=== PATIENT | male | born 1950 | race Caucasian/White ===

== ENCOUNTER 2022-08-14 14:42 | Outpatient (AMB) | payer OTHER, SELFPAY ==
--- NOTE | 2022-08-14 13:32 | MHC.OFFVIS ---
Intake Vital Signs 08/14/22 15:07 Height 5 ft 7 in Intake Visit Reasons: 2nd opinion/ S/P Circumcision Intake Note: NEW Patient presents today for 2nd opinion s/p Circumcision. Meds- Cialis & Tamsulosin Allergies to Antibiotic- None Blood Thinner- Eliquis & Aspirin PVR- 0ml Special Makeup Fx Artist Instructor Required: No Accompanied by: Significant Other Allergies No Known Allergies Allergy (Verified 09/04/22 14:46) Medication List - Last Reconciled 08/14/22 by Silke Sharif MD apixaban (Eliquis) 5 mg PO BID aspirin 81 mg PO DAILY atorvastatin 20 mg PO DAILY blood sugar diagnostic (FreeStyle Lite Strips) As directed cholecalciferol (vitamin D3) 25 mcg PO DAILY dapagliflozin propanediol (Farxiga) 10 mg PO DAILY insulin detemir U-100 (Levemir FlexPen) units subcut lancets (FreeStyle Lancets) As directed levothyroxine 50 mcg PO DAILY metoprolol succinate ER 25 mg PO DAILY omeprazole 40 mg PO DAILY pen needle, diabetic (Unifine Pentips) As directed ropinirole 4 mg PO BEDTIME sacubitril-valsartan 24-26 mg (Entresto) 1 tab PO BID sennosides-docusate sodium 8.6-50 mg (Senna-S) 0 tabs PO DAILY sitagliptin phos-metformin 100-1,000 mg ER (Janumet XR) 1 tab PO DAILY tadalafil 10 - 20 mg PO tamsulosin 0.4 mg PO DAILY trazodone 100 mg PO BEDTIME HPI HPI Comments History of Present Illness Details Bryan is a 72-year-old male who is here for second opinion. 08/14/22-- The patient is a Pakistani speaking male. Certified sales porter was present during the visit. I reviewed previous consult note from 05/31/22. The patient is S/P meatal dilation on 04/16/21 and is instructed to catheterize twice a day. The patient has seen a urologist in the past. He was prescribed with Cialis 25 mg for erectile dysfunction PRN. Has a significant history for diabetes. He underwent circumcision five years ago. States having itching on the penis. The patient complains inability to maintain erection post the procedure. The patient states that he does not need catheter everyday. He states inability to insert the catheter. States visiting the hospital on July 24 for chest pain and was diagnosed with UTI. He was admitted in the hospital for 7 days during which he was treated with IV antibiotics. States having episode of heart attack due to which he cannot take Cialis. The patient denies issue with prostate. Does not have significant family history of prostate cancer. We will hold on any medication for erectile dysfunction as he recently had an heart attack. Evaluation today-- Blood: negative, leukocytes: ?15 Nahomy/uL. On exam-- stenosis of the meatus on the penis. Scrotum and testicles: WNL. Plan: Follow-up after 3 weeks for urethral dilation and cystoscopy. Renal US and PSA blood work prior was ordered. 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 Depression Hematuria Hyperlipemia Hypothyroidism Male erectile disorder Morbid obesity Organic impotence Phimosis Primary insomnia Slow transit constipation Stage 3 chronic kidney disease Type 2 diabetes mellitus Urethral meatal stenosis Surgical History (Updated 08/14/22 @ 15:52 by LETICIA Catalan) History of circumcision Hx of colonoscopy Family History Father Medical history unknown Mother Medical history unknown Social History Alcohol intake: never Patient Tobacco Use Status: Never used Tobacco Review of Systems Const All systems reviewed & are unremarkable except as noted in HPI and below Reports no additional complaints Eyes Reports no additional complaints ENT Denies neck pain Card Denies leg edema Resp Denies cough GI Denies constipation Musc Reports no additional complaints and Denies neck pain Skin/Breast Denies rash and Denies unusual bruising Neuro Reports no additional complaints Psych Reports no additional complaints Endo Reports no additional complaints Du/Lymph Reports no additional complaints Aller/Immun Reports no additional complaints Physical Exam Const General: healthy appearing, no acute distress and well developed Orientation/consciousness: patient oriented x3 HEENT Head: Yes normocephalic and Yes atraumatic Eyes Conjunctivae: conjunctivae normal Neck Neck: Yes normal visual inspection Chest Chest palpation & inspection: normal inspection of the chest Resp Effort & Inspection: normal respiratory effort Cardio Rate: regular rate GI Inspection: Yes normal to inspection Palpation (GI): Soft to palpation Other: Prostate Exam: Scrotum: scrotum normal Skin General skin exam: no rashes or lesions noted Neuro General: patient oriented x3 Extrem General: No pedal edema Psych Appearance: grossly normal Affect: normal affect Office Procedures Post Void Residual Post Residual Void Post Void Residual (PVR): 0 [id number]-[id number] Void Residual by ultrasound Results AMB Urinalysis, Automated UA Leukoctes 15 Nahomy/uL Last Edit by Mercy Boswell Chuy on 08/14/22 15:51 UA Nitrite Negative Last Edit by Mercy Boswell [facility] on 08/14/22 15:51 UA Urobilinogen 0.2 mg/dL Last Edit by Mercy Boswell [facility] on 08/14/22 15:51 UA Protein 15 mg/dL Last Edit by Mercy Boswell [facility] on 08/14/22 15:51 UA pH 6.0 Last Edit by Mercy Boswell [facility] on 08/14/22 15:51 UA Blood 0 Alexander/uL Last Edit by Mercy Boswell [facility] on 08/14/22 15:51 UA Specific [place] 1.030 Last Edit by Mercy Boswell Chuy on 08/14/22 15:51 UA Ketone Positive Last Edit by Mercy Boswell [facility] on 08/14/22 15:51 UA Bilirubin 1 mg/dL Last Edit by Mercy Boswell [facility] on 08/14/22 15:51 1+ Mercy Boswell 08/14/22 15:51 UA Glucose 0 mg/dL Last Edit by Mercy Boswell [facility] on 08/14/22 15:51 Results Reviewed Results Reviewed: Laboratory Last Values Urine pH (Auto) 6.0 08/14/22 15:49 Specific [place] (Auto) 1.030 08/14/22 15:49 Urine Protein (Auto) 15 mg/dL 08/14/22 15:49 Glucose (UA)(Auto) 0 mg/dL 08/14/22 15:49 Urine Ketones (Auto) Positive 08/14/22 15:49 Urine Blood (Auto) 0 Alexander/uL 08/14/22 15:49 Urine Nitrite (Auto) Negative 08/14/22 15:49 Urine Bilirubin (Auto) 1 mg/dL 08/14/22 15:49 Urine Urobilinogen (Auto) 0.2 mg/dL 08/14/22 15:49 Leukocyte Esterase (Auto) 15 Nahomy/uL 08/14/22 15:49 Assessment & Plan Assessment & Plan (1) Balanitis: Code(s): N48.1 - Balanitis (2) Urethral meatal stenosis: Code(s): N35.919 - Unspecified urethral stricture, male, unspecified site (3) Screening PSA (prostate specific antigen): Code(s): Z12.5 - Encounter for screening for malignant neoplasm of prostate (4) Recent urinary tract infection: Code(s): Z87.440 - Personal history of urinary (tract) infections (5) BPH loc w urin obs/LUTS: Code(s): N40.1 - Benign prostatic hyperplasia with lower urinary tract symptoms (6) Screening PSA (prostate specific antigen): Code(s): Z12.5 - Encounter for screening for malignant neoplasm of prostate Plan Follow-up after 3 weeks for urethral dilation and cystoscopy. Renal US and PSA blood work prior was ordered. Orders: Orders PSA,Total (Free>4and<10) 08/14/22 N40.1 - Benign prostatic hyperplasia with lower urinary tract symptoms, Z12.5 - Encounter for screening for malignant neoplasm of prostate US retroperitoneal comp 08/14/22 N40.1 - Benign prostatic hyperplasia with lower urinary tract symptoms, N35.919 - Unspecified urethral stricture, male, unspecified site AMB Urinalysis Automated 08/14/22 Z13.9 - Encounter for screening, unspecified AMB Post Void Residual by ultrasound 08/14/22 N39.8 - Other specified disorders of urinary system Medications: New clotrimazole-betamethasone 1-0.05 % apply to affected genital area bid for 10 days then prn 1 appl topical BID 45 grams 2RF 10 days Patient Instructions: The patient had an opportunity to ask questions regarding treatment plan. All questions were answered. Laboratory studies and physical exam results were discussed and reviewed in detail. No major barriers to understanding were identified. The patient expressed understanding and agreement with the above treatment plan. The patient is aware they should contact our office by phone for worsening of their current condition or the appearance of new symptoms. Compliance is encouraged with any medications and followup testing that is ordered. It is a privilege to be allowed the opportunity to participate in the urologic care of your patient. If you have any questions or concerns regarding treatment for the above conditions please do not hesitate to contact me. The office telephone contact is [phone]. This note is constructed in part using voice recognition software. While every effort has been made to ensure accuracy scientist immunology errors may have been included. Yours sincerely, Silke Sharif MD Coding Level of Care Code Est Pt Level 4 (56248) Diagnoses Balanitis N48.1 Urethral meatal stenosis N35.919 Screening PSA (prostate specific antigen) Z12.5 Recent urinary tract infection Z87.440 BPH loc w urin obs/LUTS N40.1 CPT Codes Post Residual Void - PVR CPT Code: 94759-Pgjz Void Residual by ultrasound ([id number])
== END 2022-08-14 16:00 | disposition home or self-care (01) ==
PROVIDERS: PCP Physician Assistant Medical; Visit Provider Urology
DX: N48.1 Balanitis (principal); N35.919 Unspecified urethral stricture, male, unspecified site; Z12.5 Encounter for screening for malignant neoplasm of prostate; Z87.440 Personal history of urinary (tract) infections; N40.1 Benign prostatic hyperplasia with lower urinary tract symptoms; N39.8 Other specified disorders of urinary system
CPT/HCPCS: 99214

== ENCOUNTER → 2022-08-14 14:42 | Outpatient (BNVA) | payer OTHER, SELFPAY | PROVIDERS: PCP Physician Assistant Medical; Visit Provider Urology | DX: N48.1 Balanitis (principal); N40.1 Benign prostatic hyperplasia with lower urinary tract symptoms; N35.919 Unspecified urethral stricture, male, unspecified site; Z12.5 Encounter for screening for malignant neoplasm of prostate; Z87.440 Personal history of urinary (tract) infections | CPT/HCPCS: 51798; 99212 ==

== ENCOUNTER 2022-09-03 14:32 | Outpatient (REF) | payer OTHER, SELFPAY ==
--- NOTE | ~2022-09-03 | US_ITS ---
EXAMINATION: US RETROPERITONEAL COMPLETE (RENAL) CLINICAL INFORMATION: Benign prostatic hyperplasia with lower urinary tract symptoms. COMPARISON: None available. TECHNIQUE: Real-time imaging of the kidneys and bladder. FINDINGS: RIGHT KIDNEY: 10.5 x 5.4 x 5.1 cm (SAG x AP x TRV). The kidney is normal in size, contour, and echogenicity. Renal cortical thickness is normal. No calculi or focal parenchymal lesions. No hydronephrosis. LEFT KIDNEY: 11.7 x 5.7 x 6.2 cm (SAG x AP x TRV). The kidney is normal in size, contour, and echogenicity. Renal cortical thickness is normal. No calculi or focal parenchymal lesions. No hydronephrosis. BLADDER: Well distended and normal. Bilateral ureteral jets are demonstrated. Prevoid bladder volume is 186 mL. Postvoid bladder volume was not obtained. The prostate volume is 49.3 mL. US/US retroperitoneal comp IMPRESSION: 1. No nephrolithiasis or hydronephrosis. 2. Enlarged prostate.
== END 2022-09-03 14:33 | disposition home or self-care (01) ==
LOC: HO.US 14:32
PROVIDERS: PCP Physician Assistant Medical; Visit Provider Urology
DX: N40.1 Benign prostatic hyperplasia with lower urinary tract symptoms (principal); N35.919 Unspecified urethral stricture, male, unspecified site
CPT/HCPCS: 76770

== ENCOUNTER 2022-09-04 14:01 | Outpatient (AMB) | payer OTHER, SELFPAY ==
--- NOTE | 2022-09-04 07:09 | A.OFFVIS_ITS ---
Intake Intake Visit Reasons: 3w/ US/ Lab/ Cysto Allergies No Known Allergies Allergy (Verified 09/30/22 14:51) HPI HPI Comments History of Present Illness Details Bryan is a 72-year-old male who presents today to the office for an evaluation of cystoscopy. 09/04/2022-- He was last seen on 08/14/2022. He is a bangladeshi speaking male patient. Certified stone setter metal optical frames was present during visit. He was prescribed Lotrisone cream for the head of the penis for the symptoms of balanitis. He states that it is helping him. He denies any itching on the penis. He states that he is driving. US of the renal done on 09/03/2022, however, official readings are not available yet. Bladder scan PVR -- 33mL. Reviewed cystoscopy findings-- 09/04/2022 -- cystoscopy findings: Meatal urethral stricture, bulbous urethra normal; bladder: no suspicious bladder lesions noted. Plan: Continue to catheter once a day with 14-16 catheter. We will dilate the urethra again in 3 weeks. 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 Stage 3 chronic kidney disease Slow transit constipation Chronic back pain Colitis Urethral meatal stenosis Male erectile disorder Primary insomnia Depression AA (alcohol abuse) Cocaine abuse Type 2 diabetes mellitus Hypothyroidism Morbid obesity Hyperlipemia Phimosis Organic impotence Benign prostatic hyperplasia Surgical History (Updated 08/14/22 @ 15:52 by LETICIA Catalan) Hx of colonoscopy History of circumcision Family History Father Medical history unknown Mother Medical history unknown Social History Alcohol intake: never Patient Tobacco Use Status: Never used Tobacco Review of Systems Const All systems reviewed & are unremarkable except as noted in HPI and below Reports no additional complaints Eyes Reports no additional complaints ENT Denies neck pain Card Denies leg edema Resp Denies cough GI Denies constipation Musc Reports no additional complaints and Denies neck pain Skin/Breast Denies rash and Denies unusual bruising Neuro Reports no additional complaints Psych Reports no additional complaints Endo Reports no additional complaints Du/Lymph Reports no additional complaints Aller/Immun Reports no additional complaints Office Procedures Post Void Residual Post Residual Void Post Void Residual (PVR): 33 [id number] Void Residual by ultrasound Results AMB Urinalysis, Automated UA Leukoctes 70 Nahomy/uL Last Edit by Jessica Fox CMA on 09/04/22 15:12 + Jessica Fox 09/04/22 14:52 UA Leukoctes previously reported as 1 Jessica Fox 09/04/22 15:12 UA Nitrite Negative Last Edit by Jessica Fox CMA on 09/04/22 14:52 UA Urobilinogen 1 mg/dL Last Edit by Jessica Fox CMA on 09/04/22 14:52 + Jessica Fox 09/04/22 14:52 UA Protein 15 mg/dL Last Edit by Jessica Fox CMA on 09/04/22 15:12 + Jessica Fox 09/04/22 14:52 UA Protein previously reported as 1 Jessica Fox 09/04/22 15:12 UA pH 6.0 Last Edit by Jessica Fox CMA on 09/04/22 14:52 UA Blood 25 Alexander/uL Last Edit by Jessica Fox CMA on 09/04/22 15:12 + Jessica Fox 09/04/22 14:52 UA Blood previously reported as 1 Jessica Fox 09/04/22 15:12 UA Specific [place] 1.020 Last Edit by Jessica Fox CMA on 09/04/22 14: 52 UA Ketone Negative Last Edit by Jessica Fox CMA on 09/04/22 14:52 UA Bilirubin 0 mg/dL Last Edit by Jessica Fox CMA on 09/04/22 14:52 UA Glucose 0 mg/dL Last Edit by Jessica Fox CMA on 09/04/22 14:52 Results Reviewed Results Reviewed: Laboratory Last Values Urine pH (Auto) 6.0 09/04/22 14:49 Specific [place] (Auto) 1.020 09/04/22 14:49 Urine Protein (Auto) 15 mg/dL 09/04/22 14:49 Glucose (UA)(Auto) 0 mg/dL 09/04/22 14:49 Urine Ketones (Auto) Negative 09/04/22 14:49 Urine Blood (Auto) 25 Alexander/uL 09/04/22 14:49 Urine Nitrite (Auto) Negative 09/04/22 14:49 Urine Bilirubin (Auto) 0 mg/dL 09/04/22 14:49 Urine Urobilinogen (Auto) 1 mg/dL 09/04/22 14:49 Leukocyte Esterase (Auto) 70 Nahomy/uL 09/04/22 14:49 Assessment & Plan Assessment & Plan (1) Balanitis: Code(s): N48.1 - Balanitis (2) Urethral meatal stenosis: Code(s): N35.919 - Unspecified urethral stricture, male, unspecified site (3) Screening PSA (prostate specific antigen): Code(s): Z12.5 - Encounter for screening for malignant neoplasm of prostate (4) Recent urinary tract infection: Code(s): Z87.440 - Personal history of urinary (tract) infections (5) BPH loc w urin obs/LUTS: Code(s): N40.1 - Benign prostatic hyperplasia with lower urinary tract symptoms (6) Screening PSA (prostate specific antigen): Code(s): Z12.5 - Encounter for screening for malignant neoplasm of prostate Plan Continue to catheter once a day with 14-16 catheter. We will dilate the urethra again in 3 weeks. Orders: Orders AMB Post Void Residual by ultrasound 09/04/22 N40.1 - Benign prostatic hyperplasia with lower urinary tract symptoms AMB Urinalysis Automated 09/04/22 Z13.9 - Encounter for screening, unspecified Patient Instructions: The patient had an opportunity to ask questions regarding treatment plan. All questions were answered. Imaging, Laboratory studies and physical exam results were discussed and reviewed in detail. No major barriers to understanding were identified. The patient expressed understanding and agreement with the above treatment plan.? ? ? The patient is aware they should contact our office by phone for worsening of their current condition or the appearance of new symptoms. Compliance is encouraged with any medications and followup testing that is ordered.? ? ? It is a privilege to be allowed the opportunity to participate in the urologic care of your patient. If you have any questions or concerns regarding treatment for the above conditions please do not hesitate to contact me. The office telephone contact is [phone].? ? ? This note is constructed in part using voice recognition software. While every effort has been made to ensure accuracy furniture detailer errors may have been included.? ? ? Yours sincerely,? ? ? Silke Sharif MD? Coding Level of Care Code Procedure Only Diagnoses Balanitis N48.1 Urethral meatal stenosis N35.919 Screening PSA (prostate specific antigen) Z12.5 Recent urinary tract infection Z87.440 BPH loc w urin obs/LUTS N40.1 CPT Codes Cystoscopy - CPT: 95857-[id number] ([id number]) Post Residual Void - PVR CPT Code: 76114-Sosa Void Residual by ultrasound ([id number]) Cystoscopy Consent Discussed risk and benefit or proposed procedure with the patient. Information consent for procedure given to the patient. Discussed technical aspects, risks, benefits and alternatives in full. Addressed all of the patient's questions and concerns regarding the procedure. The patient demonstrated knowledge and understanding. They wish to proceed with this procedure. Preparation The patient was prepped in the usual manner. A member of the legislative council was present and in the room. Genitalia was prepped with betadine solution in a sterile manner. Lidocaine Jelly 2% was placed into the urethra and 16Fr flexible Olympus cystoscope was inserted into the meatus after adequate lubrication. Procedure Time out per protocol performed. Bladder Inspection Bladder Inspection: The bladder was inspected in its entirety with utilization retroflexion displaying: Tumor(s): None Trabeculation: mild Mucosal Erthema: N/A Orifices: normal shape and position Urethra: Meatal uretrhal stricture - required dilation Cystoscopy findings: prostatic urethra non obstructive, bulbous urethra WNL, no suspicious bladder lesions visualized [id number] Procedure code (CPT) selection complete
== END 2022-09-04 16:11 | disposition home or self-care (01) ==
PROVIDERS: PCP Physician Assistant Medical; Visit Provider Urology
DX: N48.1 Balanitis (principal); N40.1 Benign prostatic hyperplasia with lower urinary tract symptoms; N35.919 Unspecified urethral stricture, male, unspecified site; Z12.5 Encounter for screening for malignant neoplasm of prostate; Z87.440 Personal history of urinary (tract) infections
CPT/HCPCS: 52000

== ENCOUNTER → 2022-09-04 14:01 | Outpatient (BNVA) | payer OTHER, SELFPAY | PROVIDERS: PCP Physician Assistant Medical; Visit Provider Urology | DX: Z12.5 Encounter for screening for malignant neoplasm of prostate (principal); N48.1 Balanitis; N35.919 Unspecified urethral stricture, male, unspecified site; N40.1 Benign prostatic hyperplasia with lower urinary tract symptoms; Z87.440 Personal history of urinary (tract) infections | CPT/HCPCS: 51798; 52000; 81003 ==

== ENCOUNTER 2022-09-30 14:11 | Outpatient (AMB) | payer OTHER, SELFPAY ==
--- NOTE | 2022-09-30 12:17 | A.OFFVIS_ITS ---
Intake Intake Visit Reasons: 3w/urethral dilation/PSA Intake Note: Patient presents today for a URETHRAL DILATION/PSA: Meds: Tamsulosin & Tadalafil Allergies to Antibiotic: No Known Allergies Blood Thinner: Eliquis Technician Biological Health Required: Yes Technician Biological Health Language: Airfield Operations Specialist Name: Mercy Boswell, LETICIA/MAUREEN QUINONEZ Information Interpreted: non-clinical & clinical Accompanied by: Self / Same As Patient Allergies No Known Allergies Allergy (Verified 09/30/22 14:51) HPI HPI Comments History of Present Illness Details Bryan is a 72-year-old male who presents today to the office for a 3- week follow up. 09/30/2022? He was last seen by me on 09/04/2022 for benign prostatic hyperplasia. The urethral meatus was dilated, up to a 16 fr. Advised the patient to continue to catheter once a day with 14-16 catheter during that time, and discussed with the patient that we will dilate the urethra again in 3 weeks during that time. I reviewed the retroperitoneum US results from 09/03/2022 revealed no nephrolithiasis or hydronephrosis, and enlarged prostate. Review of charts: Last visit: 09/04/2022? He is a kyrgyz speaking male patient. Certified spooler operator was present during visit. He was prescribed Lotrisone cream for the head of the penis for the symptoms of balanitis. He states that it is helping him. He denies any itching on the penis. He states that he is driving. US of the renal done on 09/03/2022, however, official readings are not available yet. Bladder scan PVR -- 33mL. Reviewed cystoscopy findings-- 09/04/2022 -- cystoscopy findings are normal; urethra: normal; bladder: no suspicious bladder lesions noted. Plan: Continue to catheter once a day with 14-16 catheter. Will dilate the urethra again in 3 weeks. 09/30/2022: Evaluation today?UA? leukocytes: negative; blood: 10 Alexander/uL. 09/30/2022: Plan: I was able to dilate the urethral meatus starting with 14-Mauritanian catheter sequentially up to a 20-Mauritanian catheter. Continue cath'ing at home daily, with 18 fr and we will increase his catheter size at home up to 20-Mauritanian catheter. He was given some samples of 18-Mauritanian catheter today. Cont. Tamsulosin Follow up in 3 months to repeat urethral dilation. 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 Depression Hematuria Hyperlipemia Hypothyroidism Male erectile disorder Morbid obesity Organic impotence Phimosis Primary insomnia Slow transit constipation Stage 3 chronic kidney disease Type 2 diabetes mellitus Urethral meatal stenosis Surgical History (Updated 08/14/22 @ 15:52 by LETICIA Catalan) History of circumcision Hx of colonoscopy Family History Father Medical history unknown Mother Medical history unknown Social History Alcohol intake: never Patient Tobacco Use Status: Never used Tobacco Results AMB Urinalysis, Automated UA Leukoctes 0 Nahomy/uL Last Edit by LETICIA Catalan on 09/30/22 15:08 UA Nitrite Negative Last Edit by LETICIA Catalan on 09/30/22 15:08 UA Urobilinogen 0.2 mg/dL Last Edit by LETICIA Catalan on 09/30/22 15:0 8 UA Protein 15 mg/dL Last Edit by LETICIA Catalan on 09/30/22 15:08 UA pH 6.0 Last Edit by LETICIA Catalan on 09/30/22 15:08 UA Blood 10 Alexander/uL Last Edit by LETICIA Catalan on 09/30/22 15:08 UA Specific [place] 1.030 Last Edit by LETICIA Catalan on 09/30/22 15: 08 UA Ketone Negative Last Edit by LETICIA Catalan on 09/30/22 15:08 UA Bilirubin 0 mg/dL Last Edit by LETICIA Catalan on 09/30/22 15:08 UA Glucose 0 mg/dL Last Edit by LETICIA Catalan on 09/30/22 15:08 Results Reviewed Results Reviewed: Laboratory Last Values Urine pH (Auto) 6.0 09/30/22 15:06 Specific [place] (Auto) 1.030 09/30/22 15:06 Urine Protein (Auto) 15 mg/dL 09/30/22 15:06 Glucose (UA)(Auto) 0 mg/dL 09/30/22 15:06 Urine Ketones (Auto) Negative 09/30/22 15:06 Urine Blood (Auto) 10 Alexander/uL 09/30/22 15:06 Urine Nitrite (Auto) Negative 09/30/22 15:06 Urine Bilirubin (Auto) 0 mg/dL 09/30/22 15:06 Urine Urobilinogen (Auto) 0.2 mg/dL 09/30/22 15:06 Leukocyte Esterase (Auto) 0 Nahomy/uL 09/30/22 15:06 Assessment & Plan Assessment & Plan (1) Urethral meatal stenosis: Code(s): N35.919 - Unspecified urethral stricture, male, unspecified site (2) BPH loc w urin obs/LUTS: Code(s): N40.1 - Benign prostatic hyperplasia with lower urinary tract symptoms Plan 09/30/2022: Plan: I was able to dilate the urethral meatus starting with 14-Mauritanian catheter sequentially up to a 20-Mauritanian catheter. Continue cath'ing at home daily, with 18 fr and we will increase his catheter size at home up to 20-Mauritanian catheter. He was given some samples of 18-Mauritanian catheter today. Cont. Tamsulosin Follow up in 3 months to repeat urethral dilation. Orders: Orders AMB Urinalysis Automated 09/30/22 Z13.9 - Encounter for screening, unspecified Patient Instructions: The patient had an opportunity to ask questions regarding treatment plan. All questions were answered. Imaging, Laboratory studies and physical exam results were discussed and reviewed in detail. No major barriers to understanding were identified. The patient expressed understanding and agreement with the above treatment plan.? ? ? The patient is aware they should contact our office by phone for worsening of their current condition or the appearance of new symptoms. Compliance is encouraged with any medications and followup testing that is ordered.? ? ? It is a privilege to be allowed the opportunity to participate in the urologic care of your patient. If you have any questions or concerns regarding treatment for the above conditions please do not hesitate to contact me. The office telephone contact is [phone].? ? ? This note is constructed in part using voice recognition software. While every effort has been made to ensure accuracy yarn conditioner errors may have been included.? ? ? Yours sincerely,? ? ? Silke Sharif MD? ? Coding Level of Care Code Est Pt Level 3 (15023) Diagnoses Urethral meatal stenosis N35.919 BPH loc w urin obs/LUTS N40.1 Comment Please add CPT for urethral dilation male Office Procedure Office Procedure Documentation Office Procedure Documentation: The patient signed consent form macrobid 100 mg x 1 dose, naproxen 500 mg x 1 dose The pt was prepped with betadine, 2 % lidocaine jelly (20 mL) Using the Mcdonald sounds, the urethral meatus was sequentially dilated from 14 fr to 20 fr He tolerated the procedure well.
== END 2022-09-30 15:31 | disposition home or self-care (01) ==
PROVIDERS: PCP Physician Assistant Medical; Visit Provider Urology
DX: N35.919 Unspecified urethral stricture, male, unspecified site (principal); N40.1 Benign prostatic hyperplasia with lower urinary tract symptoms
CPT/HCPCS: 99213

== ENCOUNTER → 2022-09-30 14:11 | Outpatient (BNVA) | payer OTHER, SELFPAY | PROVIDERS: PCP Physician Assistant Medical; Visit Provider Urology | DX: N35.811 Other urethral stricture, male, meatal (principal); N40.1 Benign prostatic hyperplasia with lower urinary tract symptoms; N13.8 Other obstructive and reflux uropathy | CPT/HCPCS: 81003; 99212 ==

== ENCOUNTER 2023-01-22 13:41 | Outpatient (AMB) | payer OTHER, SELFPAY ==
--- NOTE | 2023-01-22 14:17 | A.OFFVIS_ITS ---
Intake Intake Visit Reasons: Urethral dilation- follow up Intake Note: Patient presents today for a URETHRAL DILATION: Meds: Tamsulosin & Tadalafil Allergies to Antibiotic: No Known Allergies Blood Thinner: Eliquis Liberal Arts Teacher Required: Yes Liberal Arts Teacher Language: Joy Operator Name: LETICIA Catalan/MAUREEN QUINONEZ Information Interpreted: non-clinical & clinical Accompanied by: Self / Same As Patient Allergies No Known Allergies Allergy (Verified 01/22/23 14:18) Medication List - Last Reconciled 01/22/23 by Silke Sharif MD apixaban (Eliquis) 5 mg PO BID aspirin 81 mg PO DAILY atorvastatin 20 mg PO DAILY blood sugar diagnostic (FreeStyle Lite Strips) As directed cholecalciferol (vitamin D3) 25 mcg PO DAILY clotrimazole-betamethasone 1-0.05 % 1 appl topical BID 10 days dapagliflozin propanediol (Farxiga) 10 mg PO DAILY finasteride (Proscar) 5 mg PO DAILY 90 days insulin detemir U-100 (Levemir FlexPen) units subcut lancets (FreeStyle Lancets) As directed levothyroxine 50 mcg PO DAILY metoprolol succinate ER 25 mg PO DAILY omeprazole 40 mg PO DAILY pen needle, diabetic (Unifine Pentips) As directed ropinirole 4 mg PO BEDTIME sacubitril-valsartan 24-26 mg (Entresto) 1 tab PO BID sennosides-docusate sodium 8.6-50 mg (Senna-S) 0 tabs PO DAILY sitagliptin phos-metformin 100-1,000 mg ER (Janumet XR) 1 tab PO DAILY tadalafil 10 - 20 mg PO tamsulosin 0.4 mg PO DAILY trazodone 100 mg PO BEDTIME HPI HPI Comments History of Present Illness Details Bryan is a 72-year-old male who presents today to the office for a 3- month follow up and urethral dilation. 01/22/2023? Bryan is a 72 year old male who is Kinyarwanda speaking, Certified lead technical architect present. He has LUTS of weak stream, he has been treated for fossae navicularis meatal stenosis with periodic dilations and instructed on C IC. He is on tamsulosin Urethral dilation today PROCEDURE: Urethral Dilation SURGEON: Silke Sharif MD ANESTHESIA:Local Indications: Fossae Navicularis meatal stenosis Details of procedure: Consent obtained. 2% lidocaine urojet was passed transurethrally. Antibiotics PO administered. [place] sounds starting with 16 fr sequentially up to 20 fr used. Minimal bleeding noted otherwise the patient tolerated the procedure well. Complications: None Review of chart: Results-- Retroperitoneum US results from 09/03/2022 revealed no nephrolithiasis or hy dronephrosis, and enlarged prostate. Office cystoscopy-- 09/04/2022 -- cystoscopy findings bulbous urethra: normal; bladder: no suspicious bladder lesions noted. 01/22/2023: Plan: Plan: Continue to catheter once a day with 14-16 catheter. Follow up in 3 months to repeat urethral dilation. 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 Stage 3 chronic kidney disease Slow transit constipation Chronic back pain Colitis Urethral meatal stenosis Male erectile disorder Primary insomnia Depression AA (alcohol abuse) Cocaine abuse Type 2 diabetes mellitus Hypothyroidism Morbid obesity Hyperlipemia Phimosis Organic impotence Benign prostatic hyperplasia Surgical History Hx of colonoscopy History of circumcision Family History Father Medical history unknown Mother Medical history unknown Social History Alcohol intake: never Patient Tobacco Use Status: Never used Tobacco Review of Systems Const All systems reviewed & are unremarkable except as noted in HPI and below Reports no additional complaints Eyes Reports no additional complaints ENT Denies neck pain Card Denies leg edema Resp Denies cough GI Denies constipation Musc Reports no additional complaints and Denies neck pain Skin/Breast Denies rash and Denies unusual bruising Neuro Reports no additional complaints Psych Reports no additional complaints Endo Reports no additional complaints Du/Lymph Reports no additional complaints Aller/Immun Reports no additional complaints Physical Exam Const General: healthy appearing, no acute distress and well developed Orientation/consciousness: patient oriented x3 HEENT Head: Yes normocephalic and Yes atraumatic Eyes Conjunctivae: conjunctivae normal Neck Neck: Yes normal visual inspection Chest Chest palpation & inspection: normal inspection of the chest Resp Effort & Inspection: normal respiratory effort Cardio Rate: regular rate GI Inspection: Yes normal to inspection Scrotum: scrotum normal Skin General skin exam: no rashes or lesions noted Neuro General: patient oriented x3 Psych Appearance: grossly normal Affect: normal affect Office Procedures Generic Document Section Details: pt prepped using 20 mls lidocaine urojet, one tab of cipro 500 mg and one tab of naprosyn 500 mg Results AMB Urinalysis, Automated UA Leukoctes 15 Nahomy/uL Last Edit by LETICIA Catalan on 01/22/23 14:39 UA Nitrite Negative Last Edit by LETICIA Catalan on 01/22/23 14:39 UA Urobilinogen 0.2 mg/dL Last Edit by LETICIA Catalan on 01/22/23 14:3 9 UA Protein 15 mg/dL Last Edit by LETICIA Catalan on 01/22/23 14:39 UA pH 5.5 Last Edit by LETICIA Catalan on 01/22/23 14:39 UA Blood 25 Alexander/uL Last Edit by LETICIA Catalan on 01/22/23 14:39 1+ Mercy Boswell 01/22/23 14:39 UA Specific [place] 1.030 Last Edit by LETICIA Catalan on 01/22/23 14: 39 UA Ketone Negative Last Edit by LETICIA Catalan on 01/22/23 14:39 UA Bilirubin 0 mg/dL Last Edit by LETICIA Catalan on 01/22/23 14:39 UA Glucose 0 mg/dL Last Edit by LETICIA Catalan on 01/22/23 14:39 Results Reviewed Results Reviewed: Laboratory Last Values Urine pH (Auto) 5.5 01/22/23 14:18 Specific [place] (Auto) 1.030 01/22/23 14:18 Urine Protein (Auto) 15 mg/dL 01/22/23 14:18 Glucose (UA)(Auto) 0 mg/dL 01/22/23 14:18 Urine Ketones (Auto) Negative 01/22/23 14:18 Urine Blood (Auto) 25 Alexander/uL 01/22/23 14:18 Urine Nitrite (Auto) Negative 01/22/23 14:18 Urine Bilirubin (Auto) 0 mg/dL 01/22/23 14:18 Urine Urobilinogen (Auto) 0.2 mg/dL 01/22/23 14:18 Leukocyte Esterase (Auto) 15 Nahomy/uL 01/22/23 14:18 Assessment & Plan Assessment & Plan (1) Urethral meatal stenosis: Code(s): N35.919 - Unspecified urethral stricture, male, unspecified site (2) BPH loc w urin obs/LUTS: Code(s): N40.1 - Benign prostatic hyperplasia with lower urinary tract symptoms (3) Weak urinary stream: Code(s): R39.12 - Poor urinary stream Plan Continue to catheter once a day with 14-16 catheter. Follow up in 3 months to repeat urethral dilation. proscar 5 mg daily, cont tamsulosin PSA on FU Orders: Orders Urethral Dilation Today N35.919 - Unspecified urethral stricture, male, unspecified site AMB Urinalysis Automated Today Z13.9 - Encounter for screening, unspecified Medications: New finasteride (Proscar) 5 mg PO DAILY 90 days 90 tabs 3RF C61 - Malignant neoplasm of prostate Patient Instructions: The patient had an opportunity to ask questions regarding treatment plan. All questions were answered. Imaging, Laboratory studies and physical exam results were discussed and reviewed in detail. No major barriers to understanding were identified. The patient expressed understanding and agreement with the above treatment plan. The patient is aware they should contact our office by phone for worsening of their current condition or the appearance of new symptoms. Compliance is encouraged with any medications and followup testing that is ordered. It is a privilege to be allowed the opportunity to participate in the urologic care of your patient. If you have any questions or concerns regarding treatment for the above conditions please do not hesitate to contact me. The office telephone contact is [phone]. This note is constructed in part using voice recognition software. While every effort has been made to ensure accuracy dive superintendent errors may have been included. Yours sincerely, Silke Sharif MD Coding Level of Care Code Est Pt Level 4 (18389) Diagnoses Urethral meatal stenosis N35.919 BPH loc w urin obs/LUTS N40.1 Weak urinary stream R39.12 Comment Please add code for urethral dilation
== END 2023-01-22 15:32 | disposition home or self-care (01) ==
PROVIDERS: PCP Physician Assistant Medical; Visit Provider Urology
DX: N35.919 Unspecified urethral stricture, male, unspecified site (principal); N40.1 Benign prostatic hyperplasia with lower urinary tract symptoms; R39.12 Poor urinary stream; Z13.9 Encounter for screening, unspecified
CPT/HCPCS: 99214

== ENCOUNTER → 2023-01-22 13:41 | Outpatient (BNVA) | payer OTHER, SELFPAY | PROVIDERS: PCP Physician Assistant Medical; Visit Provider Urology | DX: N40.1 Benign prostatic hyperplasia with lower urinary tract symptoms (principal); R39.12 Poor urinary stream; N35.919 Unspecified urethral stricture, male, unspecified site | CPT/HCPCS: 81003; 99212 ==

== ENCOUNTER 2023-04-14 11:36 | Outpatient (REF) | payer OTHER, SELFPAY ==
[2023-04-14 13:10] LABS: PSA,Total (Free>4and<10) 1.11 ng/mL (0.00-4.00)
== END 2023-04-14 11:37 | disposition home or self-care (01) ==
LOC: HO.LAB 11:36
PROVIDERS: Visit Provider Urology
DX: N40.1 Benign prostatic hyperplasia with lower urinary tract symptoms (principal); Z12.5 Encounter for screening for malignant neoplasm of prostate
CPT/HCPCS: 36415; 84153

== ENCOUNTER 2023-04-24 13:29 | Outpatient (AMB) | payer OTHER, SELFPAY ==
--- NOTE | 2023-04-24 13:38 | A.OFFVIS_ITS ---
Intake Intake Visit Reasons: 3m/PSA Intake Note: Patient presents today for a PSA Results: 1.11 ng/mL 04/14/2023. Meds: Tamsulosin & Tadalafil Allergies to Antibiotic: No Known Allergies Blood Thinner: Eliquis Post Void Residual: 16 mL Continuous Process Coffee Roaster Required: Yes Continuous Process Coffee Roaster Language: Social Worker Psychiatric Name: LETICIA Catalan/MAUREEN QUINONEZ Information Interpreted: non-clinical & clinical Accompanied by: Self / Same As Patient Allergies No Known Allergies Allergy (Verified 04/24/23 13:39) HPI HPI Comments History of Present Illness Details 04/24/23--Bryan is a 72-year-old male who presents today(Certified ghanaian interpretor present) to the office for follow up with PSA screening. He has h/o meatal stenosis and is instructed on CIC once a day. He is also on tamsulosin and proscar daily for BPH. He was last seen on 01/22/23 for office urethral dilation. He states he is urinating well. He is cath'ing once daily. He denies dysuria. UA- 1+ leuks, trace blood. I reviewed PSA - 04/14/23--1.11 ng/mL. 01/22/2023? Bryan is a 72 year old male who is [place] speaking, Certified mis manager present. He has LUTS of weak stream, he has been treated for fossae navicularis meatal stenosis with periodic dilations and instructed on CIC. He is on tamsulosin. Urethral dilation today PROCEDURE: Urethral Dilation SURGEON: Silke Sharif MD ANESTHESIA:Local Indications: Fossae Navicularis meatal stenosis Details of procedure: Consent obtained. 2% lidocaine urojet was passed transurethrally. Antibiotics PO administered. Leon sounds starting with 16 fr sequentially up to 20 fr used. Minimal bleeding noted otherwise the patient tolerated the procedure well. Complications: None Review of Results-- Retroperitoneum US results from 09/03/2022 revealed no nephrolithiasis or hydronephrosis, and enlarged prostate. Office cystoscopy-- 09/04/2022 -- cystoscopy findings bulbous urethra: normal; bladder: no suspicious bladder lesions noted. 04/24/23: Plan: Plan: Continue to catheter once a day with 14-16 catheter. Follow up in 2 months to repeat office urethral dilation. 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 Stage 3 chronic kidney disease Slow transit constipation Chronic back pain Colitis Urethral meatal stenosis Male erectile disorder Primary insomnia Depression AA (alcohol abuse) Cocaine abuse Type 2 diabetes mellitus Hypothyroidism Morbid obesity Hyperlipemia Phimosis Organic impotence Benign prostatic hyperplasia Surgical History Hx of colonoscopy History of circumcision Family History Father Medical history unknown Mother Medical history unknown Social History Alcohol intake: never Patient Tobacco Use Status: Never used Tobacco Review of Systems Const All systems reviewed & are unremarkable except as noted in HPI and below Reports no additional complaints Eyes Reports no additional complaints ENT Reports no additional complaints Card Denies dyspnea Resp Denies cough and Denies dyspnea GI Reports no additional complaints Musc Reports no additional complaints Skin/Breast Denies rash and Denies unusual bruising Neuro Reports no additional complaints Psych Reports no additional complaints Endo Reports no additional complaints Du/Lymph Reports no additional complaints Aller/Immun Reports no additional complaints Office Procedures Post Void Residual Post Residual Void Post Void Residual (PVR): 16 [id number] Void Residual by ultrasound Results AMB Urinalysis, Automated 2 UA Leukoctes 70 Nahomy/uL Last Edit by LETICIA Catalan on 04/24/23 13:57 1+ Mercy Boswell 04/24/23 13:57 UA Nitrite Negative Last Edit by LETICIA Catalan on 04/24/23 13:57 UA Urobilinogen 0.2 mg/dL Last Edit by LETICIA Catalan on 04/24/23 13:5 7 UA Protein 15 mg/dL Last Edit by LETICIA Catalan on 04/24/23 13:57 UA pH 5.5 Last Edit by LETICIA Catalan on 04/24/23 13:57 UA Blood 10 Alexander/uL Last Edit by LETICIA Catalan on 04/24/23 13:57 UA Specific [place] 1.025 Last Edit by LETICIA Catalan on 04/24/23 13: 57 UA Ketone Positive Last Edit by LETICIA Catalan on 04/24/23 13:57 5 mg/dL Mercy Boswell 04/24/23 13:57 UA Bilirubin 2 mg/dL Last Edit by LETICIA Catalan on 04/24/23 13:57 2+ Mercy Boswell 04/24/23 13:57 UA Glucose 0 mg/dL Last Edit by ELTICIA Ctaalan on 04/24/23 13:57 Results Reviewed Results Reviewed: Laboratory Last Values Urine pH (Auto) 5.5 04/24/23 13:40 Specific [place] (Auto) 1.025 04/24/23 13:40 Urine Protein (Auto) 15 mg/dL 04/24/23 13:40 Glucose (UA)(Auto) 0 mg/dL 04/24/23 13:40 Urine Ketones (Auto) Positive 04/24/23 13:40 Urine Blood (Auto) 10 Alexander/uL 04/24/23 13:40 Urine Nitrite (Auto) Negative 04/24/23 13:40 Urine Bilirubin (Auto) 2 mg/dL 04/24/23 13:40 Urine Urobilinogen (Auto) 0.2 mg/dL 04/24/23 13:40 Leukocyte Esterase (Auto) 70 Nahomy/uL 04/24/23 13:40 Assessment & Plan Assessment & Plan (1) Urethral meatal stenosis: Code(s): N35.919 - Unspecified urethral stricture, male, unspecified site (2) BPH loc w urin obs/LUTS: Code(s): N40.1 - Benign prostatic hyperplasia with lower urinary tract symptoms (3) Weak urinary stream: Code(s): R39.12 - Poor urinary stream Plan Continue to catheter once a day with 14-16 catheter. Follow up in 2 months to repeat urethral dilation. proscar 5 mg daily, cont tamsulosin Orders: Orders AMB Urinalysis Automated Today Z13.9 - Encounter for screening, unspecified AMB Post Void Residual by ultrasound Today N39.8 - Other specified disorders of urinary system Patient Instructions: The patient had an opportunity to ask questions regarding treatment plan. All questions were answered. Imaging, Laboratory studies and physical exam results were discussed and reviewed in detail. No major barriers to understanding were identified. The patient expressed understanding and agreement with the above treatment plan. The patient is aware they should contact our office by phone for worsening of their current condition or the appearance of new symptoms. Compliance is encouraged with any medications and followup testing that is ordered. It is a privilege to be allowed the opportunity to participate in the urologic care of your patient. If you have any questions or concerns regarding treatment for the above conditions please do not hesitate to contact me. The office telephone contact is [phone]. This note is constructed in part using voice recognition software. While every effort has been made to ensure accuracy waitress errors may have been included. Yours sincerely, Silke Sharif MD Coding Level of Care Code Est Pt Level 3 (22142) Diagnoses Urethral meatal stenosis N35.919 BPH loc w urin obs/LUTS N40.1 Weak urinary stream R39.12 CPT Codes Post Residual Void - PVR CPT Code: 54436-Imdp Void Residual by ultrasound ([id number])
== END 2023-04-24 14:38 | disposition home or self-care (01) ==
PROVIDERS: PCP Physician Assistant Medical; Visit Provider Urology
DX: N35.919 Unspecified urethral stricture, male, unspecified site (principal); N40.1 Benign prostatic hyperplasia with lower urinary tract symptoms; R39.12 Poor urinary stream; Z13.9 Encounter for screening, unspecified
CPT/HCPCS: 99213

== ENCOUNTER → 2023-04-24 13:29 | Outpatient (BNVA) | payer OTHER, SELFPAY | PROVIDERS: PCP Physician Assistant Medical; Visit Provider Urology | DX: N35.919 Unspecified urethral stricture, male, unspecified site (principal); N40.1 Benign prostatic hyperplasia with lower urinary tract symptoms; N13.8 Other obstructive and reflux uropathy; R39.12 Poor urinary stream; N39.8 Other specified disorders of urinary system | CPT/HCPCS: 51798; 81003; 99212 ==

== ENCOUNTER 2023-06-23 12:40 | Outpatient (AMB) | payer OTHER, SELFPAY ==
--- NOTE | 2023-06-23 12:55 | MHC.OFFVIS ---
Intake Visit Reasons: 2m urethral dilation Intake Note: Patient is Present for Follow Up Repeat Urethral Dilation Urology Medication:Finasteride, Tadalafil, Tamsulosin Antibiotic Allergies: None Blood Thinners: Eliquis, Aspirin Allergies No Known Allergies Allergy (Verified 06/23/23 12:59) HPI Comments Details: 06/23/23--Bryan is a 72-year-old male who presents today(Certified monegasque interpretor present) to the office for follow up with PSA screening. He has h/o meatal stenosis and is instructed on CIC once a day. He is also on tamsulosin and proscar daily for BPH. He was last seen on 01/22/23 for office urethral dilation. He states he is urinating well. He has not been cath'ing daily. Urethal dilation performed, and the patient tolerated well. Follow up in 4-6 months for repeat office dilation. Review of chart: 04/24/23--Bryan is a 72-year-old male who presents today(Certified monegasque interpretor present) to the office for follow up with PSA screening. He has h/o meatal stenosis and is instructed on CIC once a day. He is also on tamsulosin and proscar daily for BPH. He was last seen on 01/22/23 for office urethral dilation. He states he is urinating well. He is cath'ing once daily. He denies dysuria. UA- 1+ leuks, trace blood. I reviewed PSA - 04/14/23--1.11 ng/mL. 01/22/2023? Bryan is a 72 year old male who is Occitan speaking, Certified technical training coordinator present. He has LUTS of weak stream, he has been treated for fossae navicularis meatal stenosis with periodic dilations and instructed on CIC. He is on tamsulosin. Urethral dilation today PROCEDURE: Urethral Dilation SURGEON: Silke Sharif MD ANESTHESIA:Local Indications: Fossae Navicularis meatal stenosis Details of procedure: Consent obtained. 2% lidocaine urojet was passed transurethrally. Antibiotics PO administered. [place] sounds starting with 16 fr sequentially up to 20 fr used. Minimal bleeding noted otherwise the patient tolerated the procedure well. Complications: None Review of Results-- Retroperitoneum US results from 09/03/2022 revealed no nephrolithiasis or hydronephrosis, and enlarged prostate. Office cystoscopy-- 09/04/2022 -- cystoscopy findings bulbous urethra: normal; bladder: no suspicious bladder lesions noted. 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 Stage 3 chronic kidney disease Slow transit constipation Chronic back pain Colitis Urethral meatal stenosis Male erectile disorder Primary insomnia Depression AA (alcohol abuse) Cocaine abuse Type 2 diabetes mellitus Hypothyroidism Morbid obesity Hyperlipemia Phimosis Organic impotence Benign prostatic hyperplasia Surgical History Hx of colonoscopy History of circumcision Family History Father Medical history unknown Mother Medical history unknown Social History Alcohol intake: never Patient Tobacco Use Status: Never used Tobacco Review of Systems Const All systems reviewed & are unremarkable except as noted in HPI and below Reports no additional complaints Eyes Reports no additional complaints ENT Reports no additional complaints Card Reports no additional complaints Resp Reports no additional complaints GI Reports no additional complaints Reports as per HPI Musc Reports no additional complaints Skin/Breast Reports system reviewed and no additional complaints, except as documented Neuro Reports no additional complaints Psych Reports no additional complaints Endo Reports no additional complaints Du/Lymph Reports no additional complaints Aller/Immun Reports no additional complaints Office Procedures Generic Document Section Details: per Dr Nettles pt prepped using 2% lidocaine urojet- 10 mls. 500 mg PO naprosyn 500 mg PO ciprofloxacin PROCEDURE: Urethral Dilation preformed by Dr. Sharif ANESTHESIA:Local Indications: Fossae Navicularis meatal stenosis Details of procedure: Consent obtained. 2% lidocaine urojet was passed transurethrally. Antibiotics PO administered. Dylan sounds starting with 16 fr sequentially up to 20 fr used. Minimal bleeding noted otherwise the patient tolerated the procedure well. Complications: None Results AMB Urinalysis, Automated UA Leukoctes 15 Nahomy/uL Last Edit by LETICIA Brunson on 06/23/23 13:06 UA Nitrite Negative Last Edit by LETICIA Brunson on 06/23/23 13:06 UA Urobilinogen 0.2 mg/dL Last Edit by LETICIA Brunson on 06/23/23 13:06 UA Protein 15 mg/dL Last Edit by Lisa Mckeon, RMA on 06/23/23 13:06 UA pH 6.0 Last Edit by Lisa Mckeon, RMA on 06/23/23 13:06 UA Blood 0 Alexander/uL Last Edit by Lisa Mckeon, RMA on 06/23/23 13:06 UA Specific [place] 1.020 Last Edit by Lisa Mckeon, RMA on 06/23/23 13:06 UA Ketone Negative Last Edit by Lisa Mckeon, RMA on 06/23/23 13:06 UA Bilirubin 1 mg/dL Last Edit by Lisa Mckeon, RMA on 06/23/23 13:06 UA Glucose 0 mg/dL Last Edit by Lisa Mckeon, RMA on 06/23/23 13:06 Results Reviewed Results Reviewed: Laboratory Last Values Urine pH (Auto) 6.0 06/23/23 12:59 Specific [place] (Auto) 1.020 06/23/23 12:59 Urine Protein (Auto) 15 mg/dL 06/23/23 12:59 Glucose (UA)(Auto) 0 mg/dL 06/23/23 12:59 Urine Ketones (Auto) Negative 06/23/23 12:59 Urine Blood (Auto) 0 Alexander/uL 06/23/23 12:59 Urine Nitrite (Auto) Negative 06/23/23 12:59 Urine Bilirubin (Auto) 1 mg/dL 06/23/23 12:59 Urine Urobilinogen (Auto) 0.2 mg/dL 06/23/23 12:59 Leukocyte Esterase (Auto) 15 Nahomy/uL 06/23/23 12:59 Assessment & Plan Assessment & Plan (1) Urethral meatal stenosis: Code(s): N35.919 - Unspecified urethral stricture, male, unspecified site Category: Medical (2) BPH loc w urin obs/LUTS: Code(s): N40.1 - Benign prostatic hyperplasia with lower urinary tract symptoms Category: Medical (3) Weak urinary stream: Code(s): R39.12 - Poor urinary stream Category: Medical Plan Continue to catheter once a day with 14-16 catheter. Follow up in 4-6 months to repeat urethral dilation. proscar 5 mg daily, cont tamsulosin Orders: Orders AMB Urinalysis Automated 06/23/23 Z13.9 - Encounter for screening, unspecified Urethral Dilation 06/23/23 N35.919 - Unspecified urethral stricture, male, unspecified site Patient Instructions: The patient had an opportunity to ask questions regarding treatment plan. The patient expressed understanding and agreement with the above treatment plan. The patient is aware they should contact our office by phone for worsening of their current condition or the appearance of new symptoms. Compliance is encouraged with any medications and followup testing that is ordered. It is a privilege to be allowed the opportunity to participate in the urologic care of your patient. If you have any questions or concerns regarding treatment for the above conditions please do not hesitate to contact me. The office telephone contact is [phone]. This note is constructed in part using voice recognition software. While every effort has been made to ensure accuracy a and p mechanic errors may have been included. Yours sincerely, Silke Sharif MD Coding Level of Care Code Est Pt Level 3 (77228) Diagnoses Urethral meatal stenosis N35.919 BPH loc w urin obs/LUTS N40.1 Weak urinary stream R39.12 Comment CPT code for urethral dilation
== END 2023-06-23 13:41 | disposition home or self-care (01) ==
PROVIDERS: PCP Physician Assistant Medical; Visit Provider Urology
DX: N35.919 Unspecified urethral stricture, male, unspecified site (principal); N40.1 Benign prostatic hyperplasia with lower urinary tract symptoms; R39.12 Poor urinary stream
CPT/HCPCS: 99213

== ENCOUNTER → 2023-06-23 12:40 | Outpatient (BNVA) | payer OTHER, SELFPAY | PROVIDERS: PCP Physician Assistant Medical; Visit Provider Urology | DX: N40.1 Benign prostatic hyperplasia with lower urinary tract symptoms (principal); R39.12 Poor urinary stream; N35.919 Unspecified urethral stricture, male, unspecified site | CPT/HCPCS: 81003; 99212 ==

== ENCOUNTER 2023-10-23 13:18 | Outpatient (AMB) | payer OTHER, SELFPAY ==
--- NOTE | 2023-10-23 13:27 | MHC.OFFVIS ---
Intake Visit Reasons: 4m urethral dilation Intake Note: Patient is present for 4m urethral dilation Urology Medication:finasteride, tamsulosin, tadalafil, clothrimazole-bethamethasone Antibiotic Allergy:none Blood Thinner:eliquis, aspirin Cattle Producers Required: Yes Cattle Producers Name: Beverly [id number] Allergies No Known Allergies Allergy (Verified 10/23/23 13:29) Medication List - Last Reconciled 10/23/23 by Silke Sharif MD apixaban (Eliquis) 5 mg PO BID aspirin 81 mg PO DAILY atorvastatin 20 mg PO DAILY blood sugar diagnostic (FreeStyle Lite Strips) As directed cholecalciferol (vitamin D3) 25 mcg PO DAILY clotrimazole-betamethasone 1-0.05 % 1 appl topical BID 10 days dapagliflozin propanediol (Farxiga) 10 mg PO DAILY doxycycline hyclate 100 mg PO BID 5 days finasteride (Proscar) 5 mg PO DAILY 90 days insulin detemir U-100 (Levemir FlexPen) units subcut lancets (FreeStyle Lancets) As directed levothyroxine 50 mcg PO DAILY metoprolol succinate ER 25 mg PO DAILY omeprazole 40 mg PO DAILY pen needle, diabetic (Unifine Pentips) As directed phenazopyridine (Pyridium) 100 mg PO BID ropinirole 4 mg PO BEDTIME sacubitril-valsartan 24-26 mg (Entresto) 1 tab PO BID sennosides-docusate sodium 8.6-50 mg (Senna-S) 0 tabs PO DAILY sitagliptin phos-metformin 100-1,000 mg ER (Janumet XR) 1 tab PO DAILY tadalafil 10 - 20 mg PO tamsulosin 0.4 mg PO DAILY trazodone 100 mg PO BEDTIME HPI Comments Details: 10/23/23-Bryan is followed for meatal stenosis. Here for urethral dilation. He is complaining of itching around the glans. He is complaining of pain with urination. Urethral dilation performed starting with a 10 Bangladeshi catheter and sequentially dilated up to a 22 Bangladeshi sound. He is instructed to use a [address] about 3 in into the urethra to dilate the meatus Friday. 06/23/23--Bryan is a 72-year-old male who presents today(Certified russian interpretor present) to the office for follow up with PSA screening. He has h/o meatal stenosis and is instructed on CIC once a day. He is also on tamsulosin and proscar daily for BPH. He was last seen on 01/22/23 for office urethral dilation. He states he is urinating well. He has not been cath'ing daily. Urethal dilation performed, and the patient tolerated well. Follow up in 4-6 months for repeat office dilation. Review of chart: 04/24/23--Bryan is a 72-year-old male who presents today(Certified russian interpretor present) to the office for follow up with PSA screening. He has h/o meatal stenosis and is instructed on CIC once a day. He is also on tamsulosin and proscar daily for BPH. He was last seen on 01/22/23 for office urethral dilation. He states he is urinating well. He is cath'ing once daily. He denies dysuria. UA- 1+ leuks, trace blood. I reviewed PSA - 04/14/23--1.11 ng/mL. 01/22/2023? Bryan is a 72 year old male who is Liberian speaking, Certified court interpreter present. He has LUTS of weak stream, he has been treated for fossae navicularis meatal stenosis with periodic dilations and instructed on CIC. He is on tamsulosin. Urethral dilation today PROCEDURE: Urethral Dilation SURGEON: Silke Sharif MD ANESTHESIA:Local Indications: Fossae Navicularis meatal stenosis Details of procedure: Consent obtained. 2% lidocaine urojet was passed transurethrally. Antibiotics PO administered. [place] sounds starting with 16 fr sequentially up to 20 fr used. Minimal bleeding noted otherwise the patient tolerated the procedure well. Complications: None Review of Results-- Retroperitoneum US results from 09/03/2022 revealed no nephrolithiasis or hydronephrosis, and enlarged prostate. Office cystoscopy-- 09/04/2022 -- cystoscopy findings bulbous urethra: normal; bladder: no suspicious bladder lesions noted. 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 Stage 3 chronic kidney disease Slow transit constipation Chronic back pain Colitis Urethral meatal stenosis Male erectile disorder Primary insomnia Depression AA (alcohol abuse) Cocaine abuse Type 2 diabetes mellitus Hypothyroidism Morbid obesity Hyperlipemia Phimosis Organic impotence Benign prostatic hyperplasia Surgical History Hx of colonoscopy History of circumcision Family History Father Medical history unknown Mother Medical history unknown Social History Alcohol intake: never Patient Tobacco Use Status: Never used Tobacco Review of Systems Const All systems reviewed & are unremarkable except as noted in HPI and below Reports no additional complaints Eyes Reports no additional complaints ENT Reports no additional complaints Card Reports no additional complaints Resp Reports no additional complaints GI Reports no additional complaints Reports as per HPI Musc Reports no additional complaints Skin/Breast Reports system reviewed and no additional complaints, except as documented Neuro Reports no additional complaints Psych Reports no additional complaints Endo Reports no additional complaints Du/Lymph Reports no additional complaints Aller/Immun Reports no additional complaints Office Procedures Generic Document Section Details: Patient was prepped. Consent obtained. Discussed with Dr. Nettles, and Ciprofloxacin 500 mg PO was given x 1. Naproxen 500 mg PO given x 1. Lidocaine 2% urojet jelly administered in urethra. Urethral dilation: 10 Bangladeshi sound used sequentially dilated up to a 22 Bangladeshi urethral sound. Results AMB Urinalysis, Automated UA Leukoctes 500 Nahomy/uL Last Edit by LUCY Rico on 10/23/23 13:47 UA Nitrite Negative Last Edit by LUCY Rico on 10/23/23 13:47 UA Urobilinogen 0.2 mg/dL Last Edit by LUCY Rico on 10/23/23 13:47 UA Protein 15 mg/dL Last Edit by LUCY Rico on 10/23/23 13:47 UA pH 6.0 Last Edit by LUCY Rico on 10/23/23 13:47 UA Blood 0 Alexander/uL Last Edit by LUCY Rico on 10/23/23 13:47 UA Specific [place] 1.025 Last Edit by LUCY Rico on 10/23/23 13:47 UA Ketone Positive Last Edit by LUCY Rico on 10/23/23 13:47 UA Bilirubin 2 mg/dL Last Edit by LUCY Rico on 10/23/23 13:47 UA Glucose 100 mg/dL Last Edit by LUCY Rico on 10/23/23 13:47 Results Reviewed Results Reviewed: Laboratory Last Values Urine pH (Auto) 6.0 10/23/23 13:44 Specific [place] (Auto) 1.025 10/23/23 13:44 Urine Protein (Auto) 15 mg/dL 10/23/23 13:44 Glucose (UA)(Auto) 100 mg/dL 10/23/23 13:44 Urine Ketones (Auto) Positive 10/23/23 13:44 Urine Blood (Auto) 0 Alexander/uL 10/23/23 13:44 Urine Nitrite (Auto) Negative 10/23/23 13:44 Urine Bilirubin (Auto) 2 mg/dL 10/23/23 13:44 Urine Urobilinogen (Auto) 0.2 mg/dL 10/23/23 13:44 Leukocyte Esterase (Auto) 500 Nahomy/uL 10/23/23 13:44 Assessment & Plan Assessment & Plan (1) Urethral meatal stenosis: Code(s): N35.919 - Unspecified urethral stricture, male, unspecified site Category: Medical (2) BPH loc w urin obs/LUTS: Code(s): N40.1 - Benign prostatic hyperplasia with lower urinary tract symptoms Category: Medical (3) Weak urinary stream: Code(s): R39.12 - Poor urinary stream Category: Medical Plan He is instructed to use a [address] about 3 in into the urethra to dilate the meatus Friday. Pyridium 100 mg b.i.d. for 2 days. Doxycycline 100 mg twice a day for 5 days. Lotrisone cream p.r.n. proscar 5 mg daily, cont tamsulosin Orders: Orders AMB Urinalysis Automated Today Z13.9 - Encounter for screening, unspecified Urethral Dilation Today N35.919 - Unspecified urethral stricture, male, unspecified site, N40.1 - Benign prostatic hyperplasia with lower urinary tract symptoms Medications: New doxycycline hyclate 100 mg PO BID 5 days 10 tabs 0RF Urethritis phenazopyridine (Pyridium) Take medication with a meal 100 mg PO BID 4 tabs 0RF urinary burning Refilled clotrimazole-betamethasone 1-0.05 % apply to affected genital area bid for 10 days then prn 1 appl topical BID 10 days 45 grams 2RF Patient Instructions: The patient had an opportunity to ask questions regarding treatment plan. The patient expressed understanding and agreement with the above treatment plan. The patient is aware they should contact our office by phone for worsening of their current condition or the appearance of new symptoms. Compliance is encouraged with any medications and followup testing that is ordered. It is a privilege to be allowed the opportunity to participate in the urologic care of your patient. If you have any questions or concerns regarding treatment for the above conditions please do not hesitate to contact me. The office telephone contact is [phone]. This note is constructed in part using voice recognition software. While every effort has been made to ensure accuracy dialysis clinical manager errors may have been included. Yours sincerely, Silke Sharif MD Coding Level of Care Code Est Pt Level 4 (08866) Diagnoses Urethral meatal stenosis N35.919 BPH loc w urin obs/LUTS N40.1 Weak urinary stream R39.12
== END 2023-10-23 14:31 | disposition home or self-care (01) ==
PROVIDERS: PCP Physician Assistant Medical; Visit Provider Urology
DX: N35.919 Unspecified urethral stricture, male, unspecified site (principal); N40.1 Benign prostatic hyperplasia with lower urinary tract symptoms; R39.12 Poor urinary stream; Z13.9 Encounter for screening, unspecified
CPT/HCPCS: 99214

== ENCOUNTER → 2023-10-23 13:18 | Outpatient (BNVA) | payer OTHER, SELFPAY | PROVIDERS: PCP Physician Assistant Medical; Visit Provider Urology | DX: N40.1 Benign prostatic hyperplasia with lower urinary tract symptoms (principal); N13.8 Other obstructive and reflux uropathy; R39.12 Poor urinary stream; N35.911 Unspecified urethral stricture, male, meatal | CPT/HCPCS: 81003; 99212 ==

== ENCOUNTER 2024-01-12 13:11 | Outpatient (AMB) | payer OTHER, SELFPAY ==
--- NOTE | 2024-01-11 17:41 | A.OFFVIS_ITS ---
Intake Visit Reasons: Urethral dilation Intake Note: Patient is Present for Uretheral Dialation Urology Medication:Finasteride, Tamsulosin, Tadalafil, Clothrimazole cream Antibiotic Allergies: None Blood Thinners:Eliquis, Aspirin Patient states he has some icthing but no UTI Symptoms Denies any urinary issues. Patient is using catheter to help dialate States that the cream Clothrimazole Has helped and will need refills Supervisor Steel [employer] Services: [employer] Offered & Declined Allergies No Known Allergies Allergy (Verified 10/23/23 13:29) HPI Comments Details: 01/12/24-- FU-urethral dilation. Bryan is followed for meatal stenosis. Here for urethral dilation. He is complaining of itching around the glans. He is complaining of pain with urination. Urethral dilation performed starting with a 14 [place] catheter and sequentially dilated up to a 20 [place] sound. He is also on tamsulosin and finasteride for BPH. Will continue urethral dilations. Review of chart: 10/23/23-Bryan is followed for meatal stenosis. Here for urethral dilation. He is complaining of itching around the glans. He is complaining of pain with urination. Urethral dilation performed starting with a 10 [place] catheter and sequentially dilated up to a 22 [place] sound. He is instructed to use a 16 [place] catheter to dilate the meatus Friday. 06/23/23--Bryan is a 72-year-old male who presents today(Certified luxembourgish interpretor present) to the office for follow up with PSA screening. He has h/o meatal stenosis and is instructed on CIC once a day. He is also on tamsulosin and proscar daily for BPH. He was last seen on 01/22/23 for office urethral dilation. He states he is urinating well. He has not been cath'ing daily. Urethal dilation performed, and the patient tolerated well. Follow up in 4-6 months for repeat office dilation. 04/24/23--Bryan is a 72-year-old male who presents today(Certified luxembourgish interpretor present) to the office for follow up with PSA screening. He has h/o meatal stenosis and is instructed on CIC once a day. He is also on tamsulosin and proscar daily for BPH. He was last seen on 01/22/23 for office urethral dilation. He states he is urinating well. He is cath'ing once daily. He denies dysuria. UA- 1+ leuks, trace blood. I reviewed PSA - 04/14/23--1.11 ng/mL. 01/22/2023?Bryan is a 72 year old male who is Sudanese speaking, Certified tie cutter present. He has LUTS of weak stream, he has been treated for fossae navicularis meatal stenosis with periodic dilations and instructed on CIC. He is on tamsulosin. Urethral dilation today PROCEDURE: Urethral Dilation SURGEON: Silke Sharif MD ANESTHESIA:Local Indications: Fossae Navicularis meatal stenosis Details of procedure: Consent obtained. 2% lidocaine urojet was passed transurethrally. Antibiotics PO administered. Dylan sounds starting with 16 fr sequentially up to 20 fr used. Minimal bleeding noted otherwise the patient tolerated the procedure well. Complications: None Review of Results-- Retroperitoneum US results from 09/03/2022 revealed no nephrolithiasis or hydronephrosis, and enlarged prostate. Office cystoscopy-- 09/04/2022 -- cystoscopy findings bulbous urethra: normal; bladder: no suspicious bladder lesions noted. 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 Stage 3 chronic kidney disease Slow transit constipation Chronic back pain Colitis Urethral meatal stenosis Male erectile disorder Primary insomnia Depression AA (alcohol abuse) Cocaine abuse Type 2 diabetes mellitus Hypothyroidism Morbid obesity Hyperlipemia Phimosis Organic impotence Benign prostatic hyperplasia Surgical History Hx of colonoscopy History of circumcision Family History Father Medical history unknown Mother Medical history unknown Social History Alcohol intake: never Patient Tobacco Use Status: Never used Tobacco Office Procedures Generic Document Section Details: Urethral Dilation: Procedure: 2% lidocaine urojet was passed transurethrally. Antibiotics PO administered. Cipro 500 mg x1. Naproxen 500 mg x1. Dylan sounds starting with 14 fr sequentially up to 20 fr used. Minimal bleeding noted otherwise the patient tolerated the procedure well. Complications: None Results AMB Urinalysis, Automated UA Leukoctes 70 Nahomy/uL Last Edit by Lisa Mckeon Chuy on 01/12/24 13:48 UA Nitrite Negative Last Edit by Lisa Mckeon [facility] on 01/12/24 13:48 UA Urobilinogen 0.2 mg/dL Last Edit by Lisa Mckeon [facility] on 01/12/24 13:4 8 UA Protein 30 mg/dL Last Edit by Lisa Mckeon [facility] on 01/12/24 13:48 UA pH 6.0 Last Edit by Lisa Mckeon [facility] on 01/12/24 13:48 UA Blood 0 Alexander/uL Last Edit by Lisa Mckeon [facility] on 01/12/24 13:48 UA Specific [place] 1.030 Last Edit by Lisa Mckeon [facility] on 01/12/24 13: 48 UA Ketone Positive Last Edit by Lisa Mckeon [facility] on 01/12/24 13:48 UA Bilirubin 2 mg/dL Last Edit by Lisa Mckeon [facility] on 01/12/24 13:48 UA Glucose 0 mg/dL Last Edit by Lisa Mckeon [facility] on 01/12/24 13:48 Assessment & Plan Assessment & Plan (1) Urethral meatal stenosis: Code(s): N35.919 - Unspecified urethral stricture, male, unspecified site Category: Medical (2) BPH loc w urin obs/LUTS: Code(s): N40.1 - Benign prostatic hyperplasia with lower urinary tract symptoms Category: Medical (3) Weak urinary stream: Code(s): R39.12 - Poor urinary stream Category: Medical Plan Cont urethral dilation every 3 months, tamsulosin, finesteride, lotrisone cream prn to penile glans. Orders: Orders Urethral Dilation Today N35.919 - Unspecified urethral stricture, male, unspecified site AMB Urinalysis Automated Today Z13.9 - Encounter for screening, unspecified Medications: Refilled clotrimazole-betamethasone 1-0.05 % apply to affected genital area bid for 10 days then prn 1 appl topical BID 10 days 45 grams 2RF Patient Instructions: The patient had an opportunity to ask questions regarding treatment plan. The patient expressed understanding and agreement with the above treatment plan. The patient is aware they should contact our office by phone for worsening of their current condition or the appearance of new symptoms. Compliance is encouraged with any medications and followup testing that is ordered. It is a privilege to be allowed the opportunity to participate in the urologic c are of your patient. If you have any questions or concerns regarding treatment for the above conditions please do not hesitate to contact me. The office telephone contact is [phone]. This note is constructed in part using voice recognition software. While every effort has been made to ensure accuracy cash room clerk errors may have been included. Yours sincerely, Silke Sharif MD Coding Level of Care Code Est Pt Level 4 (24058) Diagnoses Urethral meatal stenosis N35.919 BPH loc w urin obs/LUTS N40.1 Weak urinary stream R39.12
== END 2024-01-12 14:07 | disposition home or self-care (01) ==
PROVIDERS: PCP Physician Assistant Medical; Visit Provider Urology
DX: N35.919 Unspecified urethral stricture, male, unspecified site (principal); N40.1 Benign prostatic hyperplasia with lower urinary tract symptoms; R39.12 Poor urinary stream; Z13.9 Encounter for screening, unspecified
CPT/HCPCS: 99214

== ENCOUNTER → 2024-01-12 13:11 | Outpatient (BNVA) | payer OTHER, SELFPAY | PROVIDERS: PCP Physician Assistant Medical; Visit Provider Urology | DX: N35.919 Unspecified urethral stricture, male, unspecified site (principal); N40.1 Benign prostatic hyperplasia with lower urinary tract symptoms; R39.12 Poor urinary stream; Z46.6 Encounter for fitting and adjustment of urinary device; Z96.0 Presence of urogenital implants | CPT/HCPCS: 51702; 53600; 81003; 99212 ==

== ENCOUNTER 2024-06-09 08:12 | Outpatient (REF) | payer OTHER, SELFPAY ==
--- OUTSIDE RECORDS SUMMARY | 2024-06-09 08:28 | XMS_ITS | Clinical Summary ---
Author Organization 175 [facility] Address [address] [place] [address] Phone Care Team Providers Care Spinner Continuous Name Role Phone Physician, Pcp Unknown Primary Care Provider Farida vailable Allergies Active Allergy Reactions Criticality Noted Date Comments Lisinopril 11/05/2021 Medications aspirin 81 mg EC tablet Take 81 mg by mouth daily. Active atorvastatin calcium (ATORVASTATIN ORAL) Take 20 mg by mouth. Active freestyle 28 gauge lancets Active polyethylene glycol (MIRALAX) 17 gram packet Take 17 g by mouth daily. Active acetaminophen (TYLENOL 8 HOUR) 650 mg 8 hr tablet Take 650 mg by mouth at bedtime. Active alcohol swabs pads, medicated by Does not apply route. Active cholecalciferol (VITAMIN D-3) 25 mcg (1,000 unit) capsule Take by mouth daily. Active cyanocobalamin (VITAMIN B-12) 100 mcg tablet Take 1,000 mcg by mouth daily. Active dapagliflozin propanediol (FARXIGA) 5 mg tablet Take by mouth. Activ e diclofenac (VOLTAREN) 1 % topical gel Apply 4 g topically 2 times daily. 3 Active docusate sodium (COLACE) 100 mg capsule Take 1 Capsule by mouth 2 times daily. 4 Active insulin aspart (NovoLOG U-100 Insulin aspart) 100 unit/mL injection Inject into the skin 3 times daily (before meals). Active insulin detemir (LEVEMIR) 100 unit/mL injection Inject into the skin at bedtime. Active levothyroxine sodium (TIROSINT) 50 mcg capsule Take by mouth. Act donis lidocaine (LIDODERM) 5 % patch Place 1 Patch onto the skin every 24 hours for 28 days. Apply for no more than 12 hours in any 24 hour period. 3 Active linaCLOtide (Linzess) 290 mcg capsule Take 1 Capsule by mouth daily. 4 Active losartan (COZAAR) 25 mg tablet Take 25 mg by mouth daily. Active miconazole nitrate 2 % aerosol,spray Apply 1 Applicator topically daily. 3 Active omeprazole (PriLOSEC) [address] capsule Take 40 mg by mouth every morning (before breakfast). Active pantoprazole (PROTONIX) 40 mg EC tablet Take 1 Tablet by mouth daily. Take in am on empty stomach, wait 30 mins and then eat to activate medication 4 Active pregabalin (LYRICA) 100 mg capsule Take 100 mg by mouth 2 times daily. Active rOPINIRole (REQUIP) 4 mg tablet Take 4 mg by mouth at bedtime. Active senna-docusate (PERICOLACE) 8.6-50 mg per tablet Take 1 Tablet by mouth daily as needed. Active SITagliptin phos-metformin 100-1,000 mg tablet, ER multiphase 24 hr Take by mouth. Active tamsulosin (FLOMAX) 0.4 mg 24 hr capsule Take 0.4 mg by mouth daily. Take 30 mins after same meal every day. Active traZODone (DESYREL) 50 mg tablet Take 100 mg by mouth at bedtime. Active Active Problems No known active problems Encounters Date Type Department Care Team Description 05/18/2024 1:00 PM EDT Office Visit Orthopedic Surgery [facility] [address] [place] [phone] Patrick Lord, DPM Dermatophytosis of nail (Primary Dx); Corns and callosities; Type II diabetes mellitus with peripheral circulatory disorder (CMS/HCC V24, CMS/HCC V28); Metatarsalgia of both feet; Diabetic mononeuropathy simplex (CMS/HCC V24, CMS/HCC V28); Primary osteoarthritis of both feet 04/22/2024 2:19 PM EDT - 04/22/2024 6:47 PM EDT Emergency [facility] Emergency [address] [place] [phone] Nicko Pérez MD Constipation, unspecified constipation type (Primary Dx) Discharge Disposition: Home or Self Care 03/31/2024 Telephone Gastroenterology - [place] 175 [facility] 175 [facility] [address] [place] [phone] Robert Foster, PA radiology from Last 3 Months Medical History Medical History Date Comments Constipation DX:Constipation History of colitis DX:History of colitis Dysphagia DX:Dysphagia Esophageal reflux DX:Esophageal reflux Diabetes mellitus type 2, co ntrolled, with complications (CMS/HCC V24, CMS/HCC V28) DX:Diabetes mellitus type 2, controlled, with complications ([facility]) Social History Tobacco Use Types Packs/Day Years Used Date Smoking Tobacco: Never Smokeless Tobacco: Never Sex and Gender Information Value Date Recorded Sex Assigned at Not on file Legal Sex Male 4:54 AM EST Gender Identity Not on file Sexual Orientation Not on file Obstetrics History Last Filed Vital Signs Vital Sign Reading Time Taken Comments Blood Pressure 140/62 04/22/2024 6:01 PM EDT Pulse 58 04/22/2024 6:01 PM EDT Temperature 36.4 ??C (97.5 ??F) 04/22/2024 6:01 PM ED T Respiratory Rate 18 04/22/2024 6:01 PM EDT Oxygen Saturation 97% 04/22/2024 6:01 PM EDT Inhaled Oxygen Concentration - - Weight 109 kg (240 lb) 04/22/2024 11:12 AM EDT Height 175.3 cm (5' 9 ) 04/22/2024 11:12 AM EDT Body Mass Index 35.44 04/22/2024 11:12 AM EDT Plan of Treatment Upcoming Encounters Date Type Department Care Team (Late st Contact Info) Description 08/18/2024 1:45 PM EDT Office Visit Orthopedic Surgery [facility] [address] [phone] Patrick Lord, DPS[place] 175 [facility] 250 [place] [address] Health Maintenance Due Date Last Done Comments Diabetes: Annual Foot Exam 1960 Diabetes: Annual Retina Eye Exam 1959 Falls Risk Assessment 01/19/2022 Hepatitis C Screening 01/19/2022 Medicare Annual Wellness Visit 01/19/2022 Social Influencers of Health Screening 01/19/2022 COVID-19 Vaccine ( season) 2023 04/29/2023, 07/11/2022, 06/14/2020, Additional history exists Depression Screening 12/10/2023 12/09/2022 RSV Immunization Adult Patients (1 - 1-dose 75+ series) 2024 Diabetes: Annual Urine Albumin-Creatinine Ratio (uACR) 04/22/2024 07/11/2022, 12/15/2019, 11/18/2018, Additional history exists Diabetes: Blood Sugar Control Test (HGBA1C) 04/22/2024 11/06/2022, 04/05/2021 Diabetes: Annual GFR (Glomerular Filtration Rate) 04/22/2025 04/22/2024, 08/02/2022 Hypertension/CHF/CAD Annual BMP Blood Test 04/22/2025 04/22/2024, 08/02/2022 DTaP,Tdap,and Td Vaccines (3 - Td or Tdap) 09/14/2025 09/15/2015, 03/12/2014 Cholesterol Screening (Lipid Panel) 07/12/2027 07/11/2022, 07/11/2022, 11/16/2021, Additional history exists Colorectal Cancer Screening: Colonoscopy 05/30/2032 05/30/2022 Pneumococcal Vaccine: 50+ Years Completed 02/22/2020, 09/15/2015, 01/28/2012 Zoster Vaccines Completed 02/22/2020, 12/15/2019 Hepatitis A Vaccines Aged Out 11/14/2022, 07/12/19 23 No longer eligible based on patient's age to complete this topic Hepatitis B Vaccines Completed 11/14/2022, 07/11/2022, 06/05/2018 Influenza Vaccine Completed 11/13/2023, , 12/09/2022, Additional history exists HIB Vaccines Aged Out No longer eligi ble based on patient's age to complete this topic HPV Vaccines Aged Out No longer eligi ble based on patient's age to complete this topic IPV Vaccines Aged Out No longer eligi ble based on patient's age to complete this topic MMR Vaccines Aged Out No longer eligi ble based on patient's age to complete this topic Meningococcal ACWY Vaccine Aged Out N o longer eligible based on patient's age to complete this topic Meningococcal B Vaccine Aged Out No l onger eligible based on patient's age to complete this topic RSV Immunization Patients Under 20 months Aged Out No longer eligible based on patient's age to complete this topic Varicella Vaccines Aged Out No longer eligible based on patient's age to complete this topic Procedures Procedure Name Priority Date/Time Associated Diagnosis Comments ECG ANNOTATED 04/23/2024 CT ABDOMEN PELVIS W CONTRAST STAT 04/22/2024 4:34 PM EDT ECG 12-LEAD STAT 04/22/2024 4:06 PM EDT LÓPEZ URINE CULTURE TUBE STAT 04/22/2024 2:24 PM EDT URINALYSIS WITH REFLEX MICROSCOPIC AND CULTURE STAT 04/22/2024 2:24 PM EDT URINALYSIS WITH REFLEX MICROSCOPIC AND CULTURE STAT 04/22/2024 2:24 PM EDT CULTURE URINE STAT 04/22/2024 2:24 PM EDT CBC WITH AUTO DIFFERENTIAL STAT 04/22/2024 11:18 AM EDT LIPASE STAT 04/22/2024 11:18 AM EDT COMPREHENSIVE METABOLIC PANEL STAT 04/22/2024 11:18 AM EDT CBC AND DIFFERENTIAL STAT 04/22/2024 11:18 AM EDT HM COLONOSCOPY Routine 05/30/2022 from Last 3 Months or Most Recently Relevant to Health Maintenance Results * ECG-Annotated (04/23/2024) us Provider Onbase MD ECG ORDERABLES Final Result * CT Abdomen Pelvis w Contrast (04/22/2024 4:34 PM EDT) Anatomical Region Laterality Modality Body Computed Tomogra phy 04/22/2024 4:55 PM EDT Impressions 04/22/2024 4:59 PM EDT NO ACUTE ABNORMALITY. ??No significant change compared to prior examination. -------- FINAL REPORT -------- Dictated By: Phil Pace Dictated Date: 04/22/2024 16:55 ET Assigned Physician: Phil Pace Reviewed and Electronically Signed By: Phil Pace Signed Date: 04/22/2024 16:59 ET Workstation ID: [id number] Transcribed By: Self Edit Transcribed Date: 04/22/2024 16:55 ET Narrative 04/22/2024 4:59 PM EDT PROCEDURE: CT ABDOMEN/PELVIS WITH CONTRAST INDICATION: abdominal pain, constipation, n/v/d, concern for bowel obstruction TECHNIQUE: CT of the abdomen and pelvis following the intravenous administration of 90cc Isovue 370. Multiplanar reformats. The examination was performed utilizing dose reduction techniques. Total DLP 1304 COMPARISON: ??10/03/2022 FINDINGS: ?? LOWER THORAX: Lung bases are clear. HEPATOBILIARY: Mild biliary dilatation setting of prior cholecystectomy. No suspicious liver lesion. SPLEEN: No focal lesion. PANCREAS: No focal mass or ductal dilatation. ADRENALS: No nodules. KIDNEYS/URETERS: No hydronephrosis, stones, or solid mass. PELVIC ORGANS/BLADDER: Bladder wall is thick but also underdistended.. PERITONEUM / RETROPERITONEUM: No ascites or free air. No retroperitoneal lymphadenopathy. VESSELS: Scattered atherosclerotic calcifications throughout the aorta and its major branches. No aneurysm. GI TRACT: No bowel distention or wall thickening. Normal appendix. BONES AND SOFT TISSUES: Postsurgical changes of the left hip. ??Scoliosis and degenerative changes. Small fat-containing umbilical hernia. Procedure Note Phil Pace MD - 04/22/2024 PROCEDURE: CT ABDOMEN/PELVIS WITH CONTRAST INDICATION: abdominal pain, constipation, n/v/d, concern for bowelobstruction TECHNIQUE: CT of the abdomen and pelvis following the intravenousadministration of 90cc Isovue 370. Multiplanar reformats. The examinationwas performed utilizing dose reduction techniques. Total DLP 1304 COMPARISON: 10/03/2022 FINDINGS: LOWER THORAX: Lung bases are clear. HEPATOBILIARY: Mild biliary dilatation setting of prior cholecystectomy.No suspicious liver lesion. SPLEEN: No focal lesion. PANCREAS: No focal mass or ductal dilatation. ADRENALS: No nodules. KIDNEYS/URETERS: No hydronephrosis, stones, or solid mass. PELVIC ORGANS/BLADDER: Bladder wall is thick but also underdistended.. PERITONEUM / RETROPERITONEUM: No ascites or free air. No retroperitoneallymphadenopathy. VESSELS: Scattered atherosclerotic calcifications throughout the aorta andits major branches. No aneurysm. GI TRACT: No bowel distention or wall thickening. Normal appendix. BONES AND SOFT TISSUES: Postsurgical changes of the left hip. Scoliosisand degenerative changes. Small fat-containing umbilical hernia. IMPRESSION: NO ACUTE ABNORMALITY. No significant change compared to priorexamination. -------- FINAL REPORT -------- Dictated By: Phil Pace Dictated Date: 04/22/2024 16:55 ET Assigned Physician: Phil Pace Reviewed and Electronically Signed By: Phil Pace Signed Date: 04/22/2024 16:59 ET Workstation ID: [id number] Transcribed By: Self Edit Transcribed Date: 04/22/2024 16:55 ET Laina العلي IMG CT PROCEDURES Final Result * ECG 12 lead (04/22/2024 4:06 PM EDT) Ventricular Rate ECG 56 BPM GEMUSE Atrial Rate 56 BPM GEMUSE P-R Interval 188 ms GEMUSE QRS Duration 100 ms GEMUSE Q-T Interval 440 ms GEMUSE QTc 424 ms GEMUSE P Wave Horton 42 degrees GEMUSE R Horton -37 degrees GEMUSE T Horton 9 degrees GEMUSE ECG Interpretation Sinus bradycardia with sinus arrhythmia Left axis deviation Minimal voltage criteria for LVH, may be normal variant Abnormal ECG When compared with ECG of 16-APR-2023 12:48, No significant change was found Confirmed by MD Charanjit, Patrick ([id number]) on 04/22/2024 10:48:58 PM GEMUSE 04/22/2024 4:06 PM EDT 04/22/2024 10:48 PM EDT Laina العلي ECG ORDERABLES Final Result GEMUSE * (ABNORMAL) Urinalysis with reflex microscopic and culture (04/22/2024 2:24 PM EDT) Pathologist [facility] Specific [place] Urine 1.021 1.003 - 1.030 LAB URINALYSIS - AUTOMATED METHOD 04/22/2024 3:40 PM EDT [facility] pH, Urine 5.5 5.0 - 8.0 pH LAB URINALYSIS - AUTOMATED METHOD 04/22/2024 3:[facility] Leukocytes, Urine Trace(A) Negative LAB URINALYSIS - AUTOMATED METHOD 04/22/2024 3:40 PM [facility] Nitrite, Urine Negative Negative LAB URINALYSIS - AUTOMATED METHOD 04/22/2024 3:40 PM [facility] Protein, Urine Negative <=Trace mg/dL LAB URINALYSIS - AUTOMATED METHOD 04/22/2024 3:40 PM [facility] Glucose, Urine Negative Negative mg/dL LAB URINALYSIS - AUTOMATED METHOD 04/22/2024 3:40 PM [facility] Ketones, Urine Trace(A) Negative mg/dL LAB URINALYSIS - AUTOMATED METHOD 04/22/2024 3:40 PM T [facility] Urobilinogen, Urine 0.2 0.2 - 1.0 mg/dL LAB URINALYSIS - AUTOMATED METHOD 04/22/2024 3:40 PM [facility] Bilirubin, Urine Negative Negative LAB URINALYSIS - AUTOMATED METHOD 04/22/2024 3:40 PM [facility] Blood, Urine Small(A) Negative LAB URINALYSIS - AUTOMATED METHOD 04/22/2024 3:40 PM [facility] RBC, Urine 6.1(H) 0 - 4 /HPF LAB URINALYSIS - AUTOMATED METHOD 04/22/2024 3:40 PM EDT [facility] WBC, Urine 4.1(H) 0 - 4 /HPF LAB URINALYSIS - AUTOMATED METHOD 04/22/2024 3:40 PM EDT [facility] Squamous Epithelial, Urine 23 0 - 60 /LPF LAB URINALYSIS - AUTOMATED METHOD 04/22/2024 3:40 PM EDT [facility] Bacteria, Urine Negative Negative /HPF LAB URINALYSIS - AUTOMATED METHOD 04/22/2024 3:40 PM EDT [facility] Hyaline Casts, Urine 0.4 0 - 3 /LPF LAB URINALYSIS - AUTOMATED METHOD 04/22/2024 3:40 PM EDT [facility] Urine Urine specimen obtained by clean catch procedure / Unknown Non-blood Collection / Unknown 04/22/2024 2:24 PM EDT 04/22/2024 3:23 PM EDT us [employer] LAB URINE ORDERABLES Final Resul t Performing Organization Address [facility] de Phone Number [facility] [address] [place] [address], [place] [phone] * López urine culture tube (04/22/2024 2:24 PM EDT) Extra Tube Hold for add-ons. 04/22/2024 5:01 PM EDT [facility] Comment:Auto resulted. Urine Urine specimen obtained by clean catch procedure / Unknown Non-blood Collection / Unknown 04/22/2024 2:24 PM EDT 04/22/2024 3:23 PM EDT us [employer] LAB URINE ORDERABLES Final Resul t Performing Organization Address City/[facility]/ZIP Co de Phone Number [facility] [address] [place] [address], [place] [phone] * Culture urine (04/22/2024 2:24 PM EDT) [facility] Culture, Urine No growth 04/23/2024 11:42 AM EDT [facility] Urine Urine specimen obtained by clean catch procedure / Unknown Non-blood Collection / Unknown 04/22/2024 2:24 PM EDT 04/22/2024 3:40 PM EDT Laina العلي LAB MICROBIOLOGY - GENERAL ORDER MICHELLE Final Result [facility] [address] [place] [address], [place] [phone] * (ABNORMAL) CBC auto differential (04/22/2024 11:18 AM EDT) [facility] WBC 6.8 4.8 - 10.8 K/mcL LAB HEMETOLOGY METHOD 04/22/2024 12:25 PM EDT [facility] RBC 4.60 4.50 - 5.50 M/mcL LAB HEMETOLOGY METHOD 04/22/2024 12:25 PM EDT [facility] Hemoglobin 13.4(L) 13.5 - 17.5 g/dL LAB HEMETOLOGY METHOD 04/22/2024 12:25 PM EDT [facility] Hematocrit 41.3(L) 42.0 - 54.0 % LAB HEMETOLOGY METHOD 04/22/2024 12:25 PM EDT [facility] MCV 90.2 79.0 - 98.0 FL LAB HEMETOLOGY METHOD 04/22/2024 12:25 PM EDT [facility] MCH 29.3 27.0 - 32.0 pcg LAB HEMETOLOGY METHOD 04/22/2024 12:25 PM EDT [facility] MCHC 32.4 32.0 - 37.0 g/dL LAB HEMETOLOGY METHOD 04/22/2024 12:25 PM [facility] RDW 12.4 11.0 - 15.0 % LAB HEMETOLOGY METHOD 04/22/2024 12:25 PM [facility] Platelets 268 130 - 400 K/mcL LAB HEMETOLOGY METHOD 04/22/2024 12:25 PM [facility] MPV 11.2(H) 7.0 - 11.0 FL LAB HEMETOLOGY METHOD 04/22/2024 12:25 PM [facility] NRBC 0.0 <1.0 % LAB HEMETOLOGY METHOD 04/22/2024 12:25 PM [facility] NRBC Absolute 0.00 <0.10 K/mcL LAB HEMETOLOGY METHOD 04/22/2024 12:25 PM [facility] Neutrophils Relative 47.8 % LAB HEMETOLOGY METHOD 04/22/2024 12:25 PM [facility] Lymphocytes Relative 38.9 % LAB HEMETOLOGY METHOD 04/22/2024 12:25 PM [facility] Monocytes Relative 8.1 % LAB HEMETOLOGY METHOD 04/22/2024 12:25 PM [facility] Eosinophils Relative 4.3 % LAB HEMETOLOGY METHOD 04/22/2024 12:25 PM [facility] Basophils Relative 0.6 % LAB HEMETOLOGY METHOD 04/22/2024 12:25 PM [facility] Immature Granulocytes Relative 0.3 % LAB HEMETOLOGY METHOD 04/22/2024 12:25 PM [facility] Neutrophils Absolute 3.25 1.50 - 7.00 K/mcL LAB HEMETOLOGY METHOD 04/22/2024 12:25 PM [facility] Lymphocytes Absolute 2.64 1.00 - 5.00 K/mcL LAB HEMETOLOGY METHOD 04/22/2024 12:25 PM EDT [facility] Monocytes Absolute 0.55 0.20 - 1.00 K/mcL LAB HEMETOLOGY METHOD 04/22/2024 12:25 PM EDT [facility] Eosinophils Absolute 0.29 0.00 - 0.50 K/mcL LAB HEMETOLOGY METHOD 04/22/2024 12:25 PM EDT [facility] Basophils Absolute 0.04 0.00 - 0.20 K/[facility] LAB HEMETOLOGY METHOD 04/22/2024 12:25 PM EDT [facility] Immature Granulocytes Absolute 0.02 0.00 - 0.03 K/[facility] LAB HEMETOLOGY METHOD 04/22/2024 12:25 PM EDT [facility] Blood Venous blood specimen / Unknown Venipuncture / Unknown 04/22/2024 11:18 AM EDT 04/22/2024 12:11 PM EDT Nicko Pérez MD LAB BLOOD ORDERABLES Anusha l Result [facility] [address] [place] [address], * Lipase (04/22/2024 11:18 AM EDT) Lipase 47 13 - 75 unit/L LAB CHEMISTRY METHOD 04/22/2024 12:58 PM EDT [facility] Blood Venous blood specimen / Unknown Venipuncture / Unknown 04/22/2024 11:18 AM EDT 04/22/2024 12:11 PM EDT Nicko Pérez MD LAB BLOOD ORDERABLES Anusha l Result [facility] [address] [place] [address], * (ABNORMAL) Comprehensive metabolic panel (04/22/2024 11:18 AM EDT) Sodium 138 133 - 145 mmol/L LAB CHEMISTRY METHOD 04/22/2024 12:58 PM [facility] Potassium 4.3 3.5 - 5.5 mmol/L LAB CHEMISTRY METHOD 04/22/2024 12:58 PM [facility] Chloride 103 96 - 110 mmol/L LAB CHEMISTRY METHOD 04/22/2024 12:58 PM [facility] CO2 28 21 - 32 mmol/L LAB CHEMISTRY METHOD 04/22/2024 12:58 PM [facility] Anion Gap 7 3 - 11 LAB CHEMISTRY METHOD 04/22/2024 12:58 PM [facility] Glucose 106(H) 70 - 100 mg/dL LAB CHEMISTRY METHOD 04/22/2024 12:58 PM [facility] BUN 9 5 - 25 mg/dL LAB CHEMISTRY METHOD 04/22/2024 12:58 PM [facility] Creatinine 1.01 0.70 - 1.30 mg/dL LAB CHEMISTRY METHOD 04/22/2024 12:58 PM [facility] eGFR 78 >=60 mL/min/1. 73m2 LAB CHEMISTRY METHOD 04/22/2024 12:58 PM [facility] Comment:Calculation based on the??Chronic Kidney Disease Epidemiology Collaboration (CKD-EPI) equation refit??without adjustment for race. BUN/Creatinine Ratio 8.9 LAB CHEMISTRY METHOD 04/22/2024 12:58 PM [facility] Calcium 9.3 8.5 - 10.5 mg/dL LAB CHEMISTRY METHOD 04/22/2024 12:58 PM [facility] AST (SGOT) 18 10 - 42 unit/L LAB CHEMISTRY METHOD 04/22/2024 12:58 PM EDT [facility] ALT (SGPT) 30 10 - 60 unit/L LAB CHEMISTRY METHOD 04/22/2024 12:58 PM EDT [facility] Alkaline Phosphatase 73 42 - 121 unit/L LAB CHEMISTRY METHOD 04/22/2024 12:58 PM EDT [facility] Total Protein 7.7 6.0 - 8.0 g/dL LAB CHEMISTRY METHOD 04/22/2024 12:58 PM EDT [facility] Albumin 3.8 3.2 - 5.0 g/dL LAB CHEMISTRY METHOD 04/22/2024 12:58 PM EDT [facility] Total Bilirubin 0.4 0.0 - 1.4 mg/dL LAB CHEMISTRY METHOD 04/22/2024 12:58 PM EDT [facility] Blood Venous blood specimen / Unknown Venipuncture / Unknown 04/22/2024 11:18 AM EDT 04/22/2024 12:11 PM EDT Nicko Pérez MD LAB BLOOD ORDERABLES Anusha l Result [facility] [address] [place] [address], * Colonoscopy (05/30/2022) Colonoscopy No Interpretation , Abstracted Anatomical Region Laterality Modality Other Historical Provider HEALTH MAINTENANCE Final Result from Last 3 Months or Most Recently Relevant to Health Maintenance Insurance [facility] MEDICARE Member Subscriber Plan / Payer (Ef fective 2019-Present) Name:Bryan Mtz Relation to Subscriber:Self Name:Bryan Mtz Payer ID:[id number] Group ID:[id number] Type:Not on file Address: [address] [place] [id number] MEDICAID - [place] Care Teams Spinner Continuous Relationship Specialty Start Date End Date Physician, Pcp Unknown PCP - General 04/22/24
--- OUTSIDE RECORDS SUMMARY | 2024-06-09 08:28 | XMS_ITS | Data Portability ---
Author Organization [facility] [place] [facility] Address [address] [place] [phone] Care Team Providers Care Log Hauler Name Role Phone HIM CCA OTHER Assessment Encounter Date Assessment Date Assessment LastModified by Organization Details LastModified Time 11/12/2022 11/12/2022 I have reviewed and agree with the assessment and plan as documented by the sole rounding machine operator. I provided real-time medical direction for this encounter and was immediately available to provide additional phone-based assistance as needed. 72M with 3 weeks of lower extremity pain to back, radiating down to left side. Pt denies any trauma or event that he can recall. No weakness. No numbness or tingling. Tried lidocaine patches, diclofenac and Tylenol without any improvement. Vitals reveal no acute findings. Pt well appearing, states pain is 7/10. Able to ambulate with steady gait. No trauma or deformity noted. Normal strength to lower extremities bilaterally. Reviewed medications, pt is on Eliquis. Pt may benefit from PT. Given symptoms, suspect sciatic type pain. No evidence for acute injury or trauma Plan: increase Tylenol 1g q 6 for the next few days. PCP/care team to consider PT for rehabilitation. For PCP follow up. paysola Not available 11/12/2022 18:06:43 06/02/2024 06/02/2024 service called for chest pressure found 74 yom with hx HTN CAD T2DM c/o 3 hours central chest pressure, dizziness EKG: sinus, isolated slightly widened QRS, questionable high take-off ST seg #Chest Pressure given hx CAD and T2DM, findings on EKG; activate EMS and refer [facility] [email or web address] Not available 06/02/2024 21:09:11 Plan of Treatment Reminders Order Date Submit Date Provider Last Modified By Organization Details Last Modified Time Details Appointments None recorded. Lab BMP, serum or plasma 2023 024 gbaci [facility], [address] [place] [address], [id number] 4 18:50:33 urinalysis, dipstick [address], [phone] 4 19:07:57 rapid strep group A, throat [address], [id number] 4 23:02:20 Referral None recorded. Procedures None recorded. Surgeries None recorded. Imaging electrocard iogram [address], [phone] 5 18:22:23 Medication Orders furosemide 10 mg/mL injection solution 2023 024 gbaci Not available 4 18:53:17 Augmentin 875 mg-125 mg tablet 2023 024 gbaci Not available 4 18:54:01 Lasix 20 mg tablet [address] [facility][id number], [address], [place], [id number], 4 19:01:55 Augmentin 875 mg-125 mg tablet [address] [facility] #[id number], [address], [place], [id number], 4 19:01:54 Lactobac 47-B.animal ,bifid-S.th ermo 10 billion cell-FOS 100 mg capsule [address] [facility] #[id number], [address], [place], [id number], 4 19:01:53 Patient TargetsNo targets recorded. Patient InstructionsNo instructions recorded. Reason for Referral None Reported. Results Created Date Observation Date Name Description Value Unit Range Abnormal Flag Note LastModifiedBy Organization Detail LastModifiedTime 03/15/19 24 03/15/2023 rapid strep group A, throa t Strep negati ve Not Available Main - Inst ed [address] [place] [address], [id number] 03/15/2023 23:02:09 03/15/19 24 03/15/2023 urina lysis , dipst ick Leukocytes negati ve Not Available Main - Inst ed [address] [place] [address], [id number] 03/15/2023 19:06:50 03/15/19 24 03/15/2023 urina lysis , dipst ick Nitrite negati ve Not Available Main - Inst ed [address] [place] [address], [id number] 03/15/2023 19:06:50 03/15/19 24 03/15/2023 urina lysis , dipst ick Urobilinogen negati ve Not Available Main - Inst ed [address] [place] [address], [id number] 03/15/2023 19:06:50 03/15/19 24 03/15/2023 urina lysis , dipst ick Protein Positi ve Not Available Main - Inst ed [address] [place] [address], [id number] 03/15/2023 19:06:50 03/15/19 24 03/15/2023 urina lysis , dipst ick pH 6.0 Not Available Main - Ins liss [address] [place] [address], [id number] 03/15/2023 19:06:50 03/15/19 24 03/15/2023 urina lysis , dipst ick Blood positi ve Not Available Main - Inst ed [address] [place] [address], [id number] 03/15/2023 19:06:50 03/15/19 24 03/15/2023 urina lysis , dipst ick Specific Wilton 1.010 Not Available Main - Insted [address] [place] [address], [phone] 03/15/2023 19:06:50 03/15/19 24 03/15/2023 urina lysis , dipst ick Ketone Negati ve Not Available Main - Inst ed [address] [place] [address], [id number] 03/15/2023 19:06:50 03/15/19 24 03/15/2023 urina lysis , dipst ick Bilirubin Negati ve Not Available Main - Inst ed [address] [place] [address], [address] [place] [address] 03/15/2023 19:06:50 03/15/19 24 03/15/2023 urina lysis , dipst ick Glucose Negati ve Not Available Main - Inst ed [address] [place] [address], [address] [place] [address] 03/15/2023 19:06:50 03/15/19 24 03/15/2023 urina lysis , dipst ick Appearance Clear Not Available Main - Insted [address] [place] [address], [address] [place] [address] 03/15/2023 19:06:50 03/15/19 24 03/15/2023 urina lysis , dipst ick Color yellow Not Available Main - Ins [address], [address] [place] [address] 03/15/2023 19:06:50 03/15/19 24 03/15/2023 BMP, serum or plasm a BUN 14 Not Available Main - Ins [address], [address] [place] [address] 03/15/2023 18:32:34 03/15/19 24 03/15/2023 BMP, serum or plasm a Ca 1.04 Not Available Main - Ins [address], [address] [place] [address] 03/15/2023 18:32:34 03/15/19 24 03/15/2023 BMP, serum or plasm a CI- 101 Not Available Main - Ins [address], [address] [place] [address] 03/15/2023 18:32:34 03/15/19 24 03/15/2023 BMP, serum or plasm a CRE 1.14 Not Available Main - Ins [address], [address] [place] [address] 03/15/2023 18:32:34 03/15/19 24 03/15/2023 BMP, serum or plasm a GLU 156 Not Available Main - Ins [address], [address] [place] [address] 03/15/2023 18:32:34 03/15/19 24 03/15/2023 BMP, serum or plasm a K+ 4.9 Not Available Main - Ins [address], [address] [place] [address] 03/15/2023 18:32:34 03/15/19 24 03/15/2023 BMP, serum or plasm a Na+ 136 Not Available Main - Ins [address], [phone] 03/15/2023 18:32:34 03/15/19 24 03/15/2023 BMP, serum or plasm a tCO2 29 Not Available Main - Ins [address], [phone] 03/15/2023 18:32:34 06/03/19 25 06/02/2024 elect shreya diogr am No observ ation record ed. [facility] [address] [place] [address], [phone] 06/02/2024 21:31:14 Result Notes None recorded. Procedures Surgical History None recorded. Imaging Results Imaging Date Name Status LastModified by Organization Details LastModified Time 06/02/2024 electrocardiogram completed [facility] [address] [place] [address], [phone] 06/02/2024 21:31:14 Procedure Notes None recorded. Medical Equipment None Reported. Allergies No known drug allergies Medications Name Sig Start Date Stop Date Status Note LastModified by Organization Details LastModified Time furosemide 10 mg/mL injection solution 20 mg IV x1 now 2023 active Not Available Not Available Not Avai lable atorvastatin 80 mg tablet GAYLA 1 TABLETA POR LA BOCA CADA MATT A LA HORA DE DORMIR active Not Available Not Available No t Available doxycycline hyclate 100 mg capsule TAKE 1 CAPSULE BY MOUTH TWICE DAILY FOR 7 DAYS TAKE WITH FOOD active Not Available Not Available No t Available atorvastatin 20 mg tablet active Not Available Not Available Not Available cefpodoxime 200 mg tablet TAKE 1 TABLET BY MOUTH TWICE DAILY active Not Available Not Available No t Available azithromycin 250 mg tablet TAKE 2 TABLETS BY MOUTH DAILY active Not Available Not Available No t Available cefpodoxime 100 mg tablet TAKE 1 TABLET BY MOUTH TWICE DAILY active Not Available Not Available No t Available FreeStyle Lancets 28 gauge active Not Available Not Available Not Available metronidazole 500 mg tablet TAKE 1 TABLET BY MOUTH EVERY 12 HOURS active Not Available Not Available No t Available ciprofloxacin 500 mg tablet TAKE 1 TABLET BY MOUTH TWICE DAILY active Not Available Not Available No t Available peg-electroly te solution 420 gram oral solution active Not Available Not Available Not Available omeprazole 40 mg capsule,delay ed release active Not Available Not Available N ot Available aspirin 81 mg tablet,delaye d release active Not Available Not Available No t Available acetaminophen 500 mg tablet TAKE 1 TABLET BY MOUTH EVERY 4 TO 6 HOURS NEEDED FOR FEVER OR PAIN active Not Available Not Available No t Available spironolacton e 25 mg tablet TAKE 1 TABLET BY MOUTH DAILY active Not Available Not Available No t Available acetaminophen ER 650 mg tablet,extend ed release active Not Available Not Available N ot Available Thera-Derm lotion active Not Available Not Available Not Available desonide 0.05 % topical ointment APPLY TOPICALLY TO THE AFFECTED AREA TWICE DAILY active Not Available Not Available No t Available tamsulosin 0.4 mg capsule active Not Available Not Available Not Available trazodone 100 mg tablet active Not Available Not Available No t Available benzonatate 100 mg capsule TAKE 1 CAPSULE BY MOUTH THREE TIMES DAILY FOR 7 DAYS NEEDED FOR COUGH active Not Available Not Available No t Available levothyroxine 50 mcg tablet active Not Available Not Availabl e Not Available bisacodyl 10 mg rectal suppository active Not Available Not Available Not Available nitrofurantoi n macrocrystal 100 mg capsule TAKE 1 CAPSULE BY MOUTH FOUR TIMES DAILY FOR 7 DAYS active Not Available Not Available No t Available clotrimazole- betamethasone 1 %-0.05 % topical cream APPLY TOPICALLY TO AFFECTED GENITAL AREA TWICE DAILY FOR 10 DAYS THEN NEEDED active Not Available Not Available No t Available lidocaine 5 % topical patch active Not Available Not Availabl e Not Available losartan 25 mg tablet active Not Available Not Available No t Available docusate sodium 100 mg capsule TAKE 1 CAPSULE BY MOUTH TWICE DAILY active Not Available Not Available No t Available bisacodyl 5 mg tablet,delaye d release TAKE 2 TABLETS BY MOUTH RIGHT BEFORE YOUR FRI DOSE OF LIQUID PREP active Not Available Not Available No t Available alcohol swabs active Not Available Not Available Not Available furosemide 20 mg tablet TAKE 1 TABLET BY MOUTH EVERY DAY FOR 5 DAYS active Not Available Not Available N ot Available metoprolol succinate ER 25 mg tablet,extend ed release 24 hr GAYLA 1 TABLETA POR LA BOCA CADA MATT active Not Available Not Available No t Available polyethylene glycol 3350 17 gram/dose oral powder active Not Available Not Available Not Available albuterol sulfate HFA 90 mcg/actuation aerosol inhaler INHALE 2 PUFFS BY MOUTH EVERY 6 HOURS NEEDED FOR SHORTNESS OF BREATH OR WHEEZING active Not Available Not Available No t Available ondansetron 4 mg disintegratin g tablet DISSOLVE 1 TABLET ON THE TONGUE EVERY 8 HOURS FOR NAUSEA active Not Available Not Available No t Available finasteride 5 mg tablet TAKE 1 TABLET BY MOUTH DAILY active Not Available Not Available No t Available amoxicillin 875 mg-potassium clavulanate 125 mg tablet TAKE 1 TABLET BY MOUTH TWICE DAILY FOR 7 DAYS active Not Available Not Available No t Available ropinirole 4 mg tablet active Not Available Not Available No t Available Senna-S 8.6 mg-50 mg tablet active Not Available Not Available Not Available Vitamin D3 25 mcg (1,000 unit) capsule active Not Available Not Availabl e Not Available tadalafil 20 mg tablet TAKE 1/2 TO 1 TABLET BY MOUTH 1 HOUR BEFORE SEXUAL ACTIVITY active Not Available Not Available No t Available Levemir FlexPen 100 unit/mL (3 mL) solution subcutaneous insulin pen active Not Available Not Available Not Available Unifine Pentips 31 gauge x 5/16 needle active Not Available Not Available Not Available FreeStyle Lite Strips active Not Available Not Available Not Available diclofenac 1 % topical gel active Not Available Not Availabl e Not Available RisaQuad-2 16 billion cell capsule TAKE 1 CAPSULE BY MOUTH EVERY DAY active Not Available Not Available No t Available ProChamber USE DIRECTED WITH ALL INHALERS active Not Available Not Available No t Available Janumet XR 100 mg-1,000 mg tablet,extend ed release active Not Available Not Available N ot Available Eliquis 5 mg tablet GAYLA 1 TABLETA POR LA BOCA DOS VECES AL MATT active Not Available Not Available No t Available Farxiga 10 mg tablet TAKE 1 TABLET BY MOUTH 1 TIME EACH DAY IN THE MORNING active Not Available Not Available No t Available Farxiga 5 mg tablet TAKE 1 TABLET BY MOUTH EVERY DAY active Not Available Not Available No t Available Entresto 24 mg-26 mg tablet GAYLA 1 TABLETA POR LA BOCA DOS VECES AL MATT (PARE LOSARTAN) active Not Available Not Available No t Available Lactobac 47-B.animal,b ifid-S.thermo 10 billion cell-FOS 100 mg capsule Take 1 capsule every day by oral route for 14 days. 2023 active Not Available Not Available Not Avai lable BinaxNOW COVID-19 Ag Self Test kit TEST DIRECTED TODAY active Not Available Not Available No t Available Vitals Date Recorded Heart rate Oxygen saturation Oxygen saturation in Arterial blood by Pulse oximetry Respiratory rate Body temperature Systolic blood pressure Diastolic blood pressure Provider Name and Address Organization Details Last Updated DateTime 3 86 /min 96 % 96 % 16 /min 97.1 [degF] 126 mm[Hg] 63 mm[Hg] Not Available [facility] 3 17:59:48 Date Recorded Respiratory rate Body temperature Heart rate Oxygen saturation Oxygen saturation in Arterial blood by Pulse oximetry Systolic blood pressure Diastolic blood pressure Provider Name and Address Organization Details Last Updated DateTime 4 16 /min 100 [degF] 88 /min 95 % 95 % 120 mm[Hg] 71 mm[Hg] Not Available [facility] 4 18:23:42 Date Recorded Body temperature Body height Oxygen saturation Oxygen saturation in Arterial blood by Pulse oximetry Respiratory rate Heart rate Body weight Systolic blood pressure Diastolic blood pressure Provider Name and Address Organization Details Last Updated DateTime 4 98.4 [degF] 157.48 cm 94 % 94 % 14 /min 78 /min 29471.4 g 110 mm[Hg] 72 mm[Hg] Not Available [facility] 4 18:59:20 Date Recorded Respiratory rate Heart rate Body temperature Oxygen saturation Oxygen saturation in Arterial blood by Pulse oximetry Systolic blood pressure Diastolic blood pressure Provider Name and Address Organization Details Last Updated DateTime 5 16 /min 68 /min 98.6 [degF] 96 % 96 % 176 mm[Hg] 76 mm[Hg] Not Available [facility] 5 21:08:31 Social History None recorded. Functional Status None recorded. Mental Status None recorded. Family History Nothing Reported. Medical History No medical history recorded. Past Encounters Encounter ID Performer Location Encounter Start Date Encounter Closed Date Diagnosis/Indication Diagnosis SNOMED-CT Code Diagnosis ICD10 Code Diagnosis Note [id number] Charisse Beltrán MD Main - [address] [phone] 11/12/2022 17:59:46 11/12/2022 23:44:04 Left side sciatica [id number] 03125 M54.32 [id number] HARPER WATT MD Main - [address] [phone] 03/15/2023 18:23:37 03/16/2023 13:34:49 Dyspnea on exertion [id number] R06.09 Evaluation in the field was performed by my sole rounding machine operator colleague, as noted above, I provided real-time direction and supervisio n for this visit. The evaluation revealed 72 yo male with hx of HFrEF based on his medication list but not on Lasix ( Entresto, Losartan and Spironolac tone ) , with hx of cough and mild SOB x2 weeks with complains of ongoing cough and dyspnea . Pt was seen at an urgent care on Friday 03/10 . Flu and covid negative. Per daughter he was told that x-ray showed fluids in his lungs . He was prescribe Doxycyclin e and Albuterol that pt has been taking, together with Tessalon pearls with no relief. Reports that cough is worse at night and he feels SOB when laying down. Upon questionin g report dyspnea on exertion. No DAPHNE. Covid and flu negative . Pt with low grade temp . SpO2 95 % RA ( 96 % during 11/12/22 visit ) . Pt also reports frequent UTI ( he straight cath ) but denies any symptoms concerning for UTI Presentati on concerning for acute exacerbati on of HFrEF. BMP was done that showed K 4.9, Na 136, BUN 14, Creat 1.14 , but his Hct elevated at 51 that goes against fluid overload. Pt has never smokedLong discussion with daughter and patient re the possibilit y of presentati on being acute exacerbati on of HF vs pneumonia . They were offered ED visit but prefer to be treated at home and if no improvemen t they will go to the ED for further eval. Impression :Dyspnea Plan:Pt not on lasix even thou his medication regimen suggest HFpEF. Will give Lasix 20 mg IV and sent Rx for lasix PO 20 mg daily x5 days ( until prt seen by PCP or his cardiologi st ) .Possible partially treated CAP. Will start Augmentin 875 mg BID x7 days ( pt received the first dose by sole rounding machine operator ) . Side effects of the Augmentin including GI upset and diarrhea discussed. Pt advised to eat yogurt and rx for lactobacil was send to his pharmacy .Pt and family advised to call PCP and cardiology on Friday for close f/uUA with no signs of UTI Primary care, consider: Please f/u with patient within few days to assure improvemen t. If further diuretics dose is needed, please send rx to his pharmacy ( he is only prescribed 5 day worth ) Dispositio n: We discussed the diagnostic uncertaint y of home visits and the risk associated with this. In this case, the patient and I felt this to be an acceptable and reasonable amount of risk given the benefit of avoiding an ED visit. We discussed the need to seek care urgently/e mergently in the setting of any new or worsening serious symptoms, particular ly worsening cough, SOB, CP, dizziness, fever, chills or any other concerns. [id number] Jatin Machado MD Main - [facility] [address] [place] [phone] 03/25/2023 18:59:09 03/25/2023 21:56:49 Alteration in heart rate [id number] R00.9 Patient was recently discharged from the hospital for pneumonia and daughter was checking his oxygen saturation with a pulse oximeter. Reportedly his heart rate was over 200 at the time but he was asymptomat ic. She did not know how to check a pulse. Patient reports that he has a longstandi ng history of GERD which has been worsening lately. Denies chest pain, pressure, nausea, diaphoresi s, radiation to jaw or arm, or any other ACS symptom. Discussed with patient and family that we cannot rule out [place] in the home, even though there is a low suspicion. Patient and family declined ED. Educated on how to check a pulse. Plan to monitor heart rate at home and follow up with PCP. [id number] Robyn Osborne MD Main - [facility] [address] [place] [phone] 06/02/2024 21:08:21 06/03/2024 14:57:48 Chest discomfort [id number] R07.89 Health Concerns Section Related Observation LastModified by Organization Detai ls LastModified Time None Recorded Concern Status LastModified by Organization Details LastModified Time None Recorded Advance Directives Directive None Recorded Payers Encounter Date Sequence Insurance Name Policy Number Policy Vogel Covered Member ID Vogel Member ID Guarantor Name 11/12/2022 1 [facility] - DOS ON OR AFTER 2022 - DUAL ELIGIBLE - FPC OPTIONS AND ONE CARE (MEDICARE REPLACEMENT/AD VANTAGE - HMO) Bryan Mtz [id number] Bryan Mtz 03/15/2023 1 [facility] DOS ON OR AFTER 2022 - DUAL ELIGIBLE - FPC OPTIONS AND ONE CARE (MEDICARE REPLACEMENT/AD VANTAGE - HMO) Bryan Mtz [id number] Bryan Mtz 03/25/2023 1 [facility] DOS ON OR AFTER 2022 - DUAL ELIGIBLE - FPC OPTIONS AND ONE CARE (MEDICARE REPLACEMENT/AD VANTAGE - HMO) Bryan Mtz [id number] Bryan Mtz 06/02/2024 1 [facility] DOS ON OR AFTER 2022 - DUAL ELIGIBLE - FPC OPTIONS AND ONE CARE (MEDICARE REPLACEMENT/AD VANTAGE - HMO) Bryan Mtz [id number] Bryan Mtz Notes Date Note Type Note Provider Name and Address Organization Details Recorded Time 11/12/2022 text/html [facility] Nursing Assessment: Chief Complaints: Pain PMH: Diabetes, Hypertension, Heart Disease Allergies: No Known Pain Assessment: Level 7 out of 10 Comments: LLE pain started 2 weeks ago. Difficulty sleeping last night from pain. Reports redness/swelling over the last two weeks. Denies fevers. ................... ................... ................... ................... ................... ................... ................... ........ Director Of Diagnostic Imaging Note From Praveen Bañuelos: Pt reports pain in his left lower back/him traveling down his left leg for three weeks. Pt denies any precipitating injury or event. Pt denies hx of sciatica. Pt taking 1 g APAP bid, diclofenac topical and lidocaine patches with little relief. Pt is alert, NAD. VSS. Afebrile. Neuro exam and gait normal. Lungs CTA. Benign ABD exam. No LLE. Equal strength and sensation in all extremities. Pt advised to increased APAP to 1 g q6h and alternate between heat and ice. ................... ................... ................... ................... ................... ................... ................... ........ Disposition: Fulfilled Charisse Beltrán MD [address] [place] [address],[address], [place], [phone], Book&Table 11/12/2022 19:21:43 03/15/2023 text/html [facility] Nurse Triage Notes (Leela Lange): Chief Complaints: Shortness of Breath/Dyspnea, Cough PMH: Diabetes, Hypertension, Heart Disease Allergies: No Known Comments: + non-productive cough. Seen in urgent care 2 days ago to be evaluated for cough. Rx Doxycycline, Tessalon Perles, and nebulizer treatment. HR 99 02 Sat 94% RA. No fevers reported. No respiratory distress reported by daughter. Reviewed RED flags. Advised to call 911 for worsening dyspnea. ................... ................... ................... ................... ................... ................... ................... ........ Director Of Diagnostic Imaging Note From Asif Hdz: Pt reports that he has been feeling unwell for the past 2 weeks states on Friday was seen at a [facility] had a X-ray done and was told that he has guild in his lungs states that he was sent home with ABX and a MDI states that since then he has been feeling the same states that he still has been having a cough with SOB mostly when lying down. Denies any fever reports that he hasn? t been eating or drinking well on scene vs taken LS diminished. Strep test done, [facility] was called POC UA and BMP done. IV was started pt given 20mg of lasix and augmentin was advised that if symptoms don? t improve or get worse to go to ED and cleared. ................... ................... ................... ................... ................... ................... ................... ........ Disposition: Fulfilled HARPER WATT MD [address] [place] [address],[address], [place], [phone], Book[employer]Table 03/15/2023 23:13:50 03/25/2023 text/html [facility] Nurse Triage Notes (Leela Lange): Reason For Request: Pt's daughter reporting heart palpitation pulse 99, 213PRB PM>taken at 5:10pm Chief Complaints: Tachycardia/Palpita tions PMH: Diabetes, Hypertension, Heart Disease Allergies: No Known Comments: Daughter reports member's HR >150 bpm. Developed shortness of breath last night. Daughter states member took heart pill and HR is decreasing to 80's. Advised ED. Member declined after education. Member refused ED for cardiac workup. ................... ................... ................... ................... ................... ................... ................... ........ Director Of Diagnostic Imaging Note From Ash Villalobos: Pt caox3 complains of epigastric discomfort x 24 hours. Was recently in hospital for tachycardia and pneumonia. Caregiver noted HR 215 this afternoon as captured by the spO2 monitor they received at inpatient discharge. PT denies palpitations now. Reports pain 4 of 10 upper center abdomen, burning states pt. Pt reports pain decreased by drinking water. States he is on omeprazole 40mg per day but his medication compliance has been poor over the last few days. Pt denies nausea, weakness, chest pain, radiation, headache, jaw or arm pain or any other pain or complaints. Pt states he has been using abluterol MDI x4 per day with relief. Pt pink warm and dry, secondary exam unremarkable. Positive full sentences, negative increased work of breathing, abdomen soft non tender, negaitve increase of pain with inspiration. No edema. Heart rate now normal with no palpitations noted. [facility] advises pt to be seen for high heart rate and abdominal pain at ED OR to drink more water and see how it goes at home while closely monitoring himself for changes. Pt chooses supportive care at home. Red flags and supportive care discussed at length with pt and caregiver. Education on taking pt's pulse and when to call 911 to capture high HR with ECG. ................... ................... ................... ................... ................... ................... ................... ........ Disposition: Monserrat Machado MD [address] [place] [address],[address], [place], [address], Book&Table 03/25/2023 20:13:45 06/02/2024 text/html CRC Nurse Triage Notes (Patriciajose Lakesha): Reason For Request: dizzy/shaky/abdomin al pain Chief Complaints: Chest Pain, Dizziness, Abdominal Pain PMH: Hypertension, Coronary Artery Disease, Diabetes Mellitus Type 2 PMH Reviewed at 06/02/2024 - 20:19 Allergies Reviewed at 06/02/2024 - 20:19 Comments: 74 y.o male complains of Chest Pain, Dizziness, Abdominal Pain Patients daughter calling in to place a referral, identified via name and . Patient with approximately 2 hours of dizziness, shakes and abdominal pain. Patient is DM blood sugar during intake 141, BP 166/79, HR 66 Patient slightly diaphoretic, mild chest pain and shortness of breath, denies any left sided jaw, neck, shoulder or arm pain, does not feel he is in acute distress. Denies headache or blurry vision, he is heard communicating clearly in the back round. Denies abdominal distention, no firmness, some tenderness with palpation, LBM yesterday, denies nausea, vomiting of diarrhea, +chills. RED flags discussed with daughter. I provided information on the mobile health provider response time and advised the patient and/or caregiver to monitor reported signs and symptoms. I discussed the warning signs of when to seek emergency care. Director Of Diagnostic Imaging Organization Information for Breezy [facility] Business Legal Name: [employer] Address: [address] [place] [address], Online Media Buyer: Gopal Callejas MD CLIA No.: [id number] Director Of Diagnostic Imaging POC Test Results from Breezy Vaughan EKG (20:53:55) EKG test performed. Attachments uploaded as part of this test result can be found under Documents section. ................... ................... ................... ................... ................... ................... ................... ........ Director Of Diagnostic Imaging Note From Breezy Vaughan: Dispatched to the call address for the male with chest pain. Pt states a couple of hours ago he started having chest pressure. He states he has never had this pain before. Family advises that he has had episodes of being diaphoretic as well. Pt states the pain is constant and nothing seems to make it better or worse. He denies v/d, fevers but endorses some nausea with feeling short of breath at times. He states he has a cardiac Hx and takes Eliquis for his heart but is not sure why. Pt was found sitting in living room chair, CAOx4, airway open and patent, breathing non labored, able to speak in full sentences, -JVD, -HEENT, skin PWD with good turgor, mucous membranes pink and moist, lungs CTA, abd soft non tender/distended, pupils PERRL, +CMSx4, afebrile, -edema/swelling, NSR, [address] elevation (less than 0.25mm). Chest pain/pressure Pt was assessed with full set of vitals. 12 lead EKG. Results uploaded. [facility] consulted. Pt advised Pt to have a further work up in the ED. Pt agreeable. ED visible from Pts front door, family drove Pt to ED. Red flags discussed. ALL times are approx. ................... ................... ................... ................... ................... ................... ................... ........ [facility] Consulted: Robyn Osborne ................... ................... ................... ................... ................... ................... ................... ........ Disposition: Fulfilled Robyn Osborne MD [address] [place] [address],[address] [facility], [place], [address], CRYSTAL ANDERSEN 06/03/2024 10:06:42
--- OUTSIDE RECORDS SUMMARY | 2024-06-09 08:28 | XMS_ITS | Encounter Summary ---
Author Organization [facility] Address [address] [place] [address] Care Team Providers Care Fur Glazer Name Role Phone Phil Le MD Primary Care Provider [phone] Encounter Details Date Type Department Care Team (Late st Contact Info) Description 11/07/2022 Interim Notes [facility] [address] [place] [address] Yulia Grier [address] [place] [address] Social History Tobacco Use Types Packs/Day Years Used Date Smoking Tobacco: Never Smokeless Tobacco: Never Alcohol Use Standard Drinks/Week Comments Yes 0 (1 standard drink = 0.6 oz pur e alcohol) occassionaly Social Connections Answer Date Recorded Social Connections and Isolation 1 07/16/2022 Financial Resource Strain Answer Date R ecorded Financial Resource Strain 1 2022 Stress Answer Date Recorded Stress 1 07/16/2022 Physical Activity Answer Date Recorded Physical Activity 0 10/03/2018 Food Insecurity Answer Date Recorded Food 1 07/16/2022 Transportation Needs Answer Date Record ed Transportation 1 07/16/2022 Housing Stability Answer Date Recorded Housing 1 07/16/2022 Safety and Environment Answer Date Uriel rded Safety 1 07/16/2022 Utilities Answer Date Recorded Utilities 1 07/16/2022 Employment Answer Date Recorded Employment 0 10/03/2018 Sex and Gender Information Value Date Recorded Sex Assigned at Male 12/22/2016 7:14 PM PST Legal Sex Male 11:36 AM PDT Gender Identity Male 12/22/2016 7:14 PM PST Sexual Orientation Straight 12/22/2016 7: 14 PM PST COVID-19 Exposure Response Date Recorded In the last 10 days, have yo u been in contact with someone who was confirmed or suspected to have Coronavirus/COVID-19? No / Unsure 11/06/2022 10:46 AM EDT documented as of this encounter Plan of Treatment Not on file documented as of this encounter Visit Diagnoses Not on filedocumented in this encounter Additional Health Concerns Assessment Noted Time PHQ-9 Depression Total Score: 5 11/07/19 23 11:21 AM PDT documented as of this encounter Care Teams Fur Glazer Relationship Specialty Start Date End Date Phil Le MD [address] [place] [address] PCP - General Internal Medicine 04/06/24 documented as of this encounter
--- OUTSIDE RECORDS SUMMARY | 2024-06-09 08:29 | XMS_ITS | Encounter Summary ---
Author Organization [facility], Address [address] [place] [address] Phone Care Team Providers Care Automotive Wholesale Parts Advisor Name Role Phone Hillary Bennett PA-C Primary Care Provider Encounter Details Date Type Department Care Team (Late st Contact Info) Description 08/25/2023 Documentation Only [facility], [address] [place] [address] Stephanie Funes [address] [place] [address] Social History Tobacco Use Types Packs/Day Years Used Date Smoking Tobacco: Never Smokeless Tobacco: Never Alcohol Use Standard Drinks/Week Comments Not Currently 0 (1 standard drink = 0.6 oz pur e alcohol) Sex and Gender Information Value Date Recorded Sex Assigned at Not on file Legal Sex Male 3:30 PM EDT Gender Identity Not on file Sexual Orientation Not on file documented as of this encounter Plan of Treatment Not on file documented as of this encounter Visit Diagnoses Not on filedocumented in this encounter Care Teams Automotive Wholesale Parts Advisor Relationship Specialty Start Date End Date Hillary Bennett PA-C [address] [place] [address] PCP - General Physician Electrical Sign Wirer 11/01/20 documented as of this encounter
--- OUTSIDE RECORDS SUMMARY | 2024-06-09 08:29 | XMS_ITS | Encounter Summary ---
Author Organization [facility], Address [address] [place] [address] Phone Care Team Providers Care Continuous Process Rotary Drum Tanner Name Role Phone Hillary Bennett PA-C Primary Care Provider Encounter Details Date Type Department Care Team (Late st Contact Info) Description 04/26/2024 Documentation Only [facility], [address] [place] [address] Stephanie Funes [address] [place] [address] Social History Tobacco Use Types [...] on filedocumented in this encounter Care Teams Continuous Process Rotary Drum Tanner Relationship Specialty Start Date End Date Hillary Bennett PA-C [address] [place] [address] PCP - General Physician Leaf Sticker 11/01/20 documented as of this encounter
--- OUTSIDE RECORDS SUMMARY | 2024-06-09 08:29 | XMS_ITS | Encounter Summary ---
Author Organization [facility], Address [address] [place] [address] Phone Care Team Providers Care Greens Or Grounds Superintendent Name Role Phone Hillary Bennett PA-C Primary Care Provider Encounter Details Date Type Department Care Team (Late st Contact Info) Description 04/26/2024 Documentation Only [facility], [address] [place] [address] Stephanie Funes [address] [place] [address] Social History Tobacco Use Types [...] on filedocumented in this encounter Care Teams Greens Or Grounds Superintendent Relationship Specialty Start Date End Date Hillary Bennett PA-C [address] [place] [address] PCP - General Physician Fuel Handler 11/01/20 documented as of this encounter
--- OUTSIDE RECORDS SUMMARY | 2024-06-09 08:29 | XMS_ITS | Encounter Summary ---
Author Organization [facility], Address [address] [place] [address] Phone Care Team Providers Care Manager Of Business Name Role Phone Hillary Bennett PA-C Primary Care Provider Encounter Details Date Type Department Care Team (Late st Contact Info) Description 04/26/2024 Documentation Only [facility], [address] [place] [address] Stephanie Funes [address] [place] [address] Social History Tobacco Use Types [...] on filedocumented in this encounter Care Teams Manager Of Business Relationship Specialty Start Date End Date Hillary Bennett PA-C [address] [place] [address] PCP - General Physician Frame Runner 11/01/20 documented as of this encounter
--- OUTSIDE RECORDS SUMMARY | 2024-06-09 08:29 | XMS_ITS | Encounter Summary ---
Author Organization [facility], Address [address] [place] [address] Phone Care Team Providers Care Blood Bank Booking Clerk Name Role Phone Hillary Bennett PA-C Primary Care Provider Encounter Details Date Type Department Care Team (Late st Contact Info) Description 08/25/2023 Documentation Only [facility], [address] [place] [address] Stephanie Funes [address] [place] [address] Social History Tobacco Use Types [...] on filedocumented in this encounter Care Teams Blood Bank Booking Clerk Relationship Specialty Start Date End Date Hillary Bennett PA-C [address] [place] [address] PCP - General Physician Security Monitor 11/01/20 documented as of this encounter
--- OUTSIDE RECORDS SUMMARY | 2024-06-09 08:29 | XMS_ITS | Encounter Summary ---
Author Organization [facility], Address [address] [place] [address] Phone Care Team Providers Care Grinder Set Up Operator Gear Tool Name Role Phone Hillary Bennett PA-C Primary Care Provider Encounter Details Date Type Department Care Team (Late st Contact Info) Description 08/25/2023 Documentation Only [facility], [address] [place] [address] Stephanie Funes [address] [place] [address] Social History Tobacco Use Types [...] on filedocumented in this encounter Care Teams Grinder Set Up Operator Gear Tool Relationship Specialty Start Date End Date Hillary Bennett PA-C [address] [place] [address] PCP - General Physician Building Construction Estimator 11/01/20 documented as of this encounter
--- OUTSIDE RECORDS SUMMARY | 2024-06-09 08:29 | XMS_ITS | Clinical Summary ---
Author Organization [facility], Address [address] [place] [address] [place] [address] Phone Care Team Providers Care Financial Representative Name Role Phone Hillary Bennett PA-C Primary Care Provider Allergies Active Allergy Reactions Criticality Noted Date Comments Lisinopril Other (see comments) 10/25/2017 Medications levothyroxine (SYNTHROID, LEVOTHROID) 50 MCG tablet 12/07/2020 Active losartan (COZAAR) 25 MG tablet 12/07/2020 Active omeprazole (PriLOSEC) [address] capsule 12/07/2020 Active pregabalin (LYRICA) 100 MG capsule 12/07/2020 Active rOPINIRole (REQUIP) 4 MG tablet 12/07/2020 Active tamsulosin (FLOMAX) 0.4 MG 24 hr capsule 12/07/2020 Activ e traZODone (DESYREL) 50 MG tablet 12/07/2020 Active Janumet XR 100-1000 MG tablet sustained-releas e 24 hour 12/07/2020 Active Senna-Tabs 8.6 MG tablet 12/07/2020 Active atorvastatin (LIPITOR) 20 MG tablet 12/07/2020 Active aspirin (ST CARLOS) 81 MG EC tablet 12/07/2020 Active Dapagliflozin Propanediol (Farxiga) 10 MG tablet Take 10 mg by mouth 1 (one) time each day in the morning 30 tablet 5 06/06/2022 Active Active Problems Problem Noted Date Diagnosed Date Chronic kidney disease, stage 2 (mild) 4 Hyperlipidemia 12/08/2020 Type 2 diabetes mellitus 09/29/2012 Vitamin B12 deficiency Paroxysmal atrial fibrillation Neuropathy Microscopic hematuria Hypertension Hypothyroidism Encounters Date Type Department Care Team Description 04/26/2024 Documentation Only [facility], [address] [place] [address] MarinStephanie garcia 04/26/2024 Documentation Only [facility] [address] [place] [address] Marin, Stephanie 04/26/2024 Documentation Only [facility] [address] [place] [address] Marin, Stephanie 04/26/2024 Documentation Only [facility] [address] [place] [address] Marin, Stephanie 04/26/2024 Documentation Only [facility] [address] [place] [address] Stephanie Funes from Last 3 Months Immunizations Immunization Administration Dates Next Due Hep A / Hep B 11/14/2022,07/11/2022 Hepatitis B 06/05/2018 Influenza (IM) Preservative Free 01/15/2013 Influenza Split High Dose Pr eservative Free IM 02/05/2019,04/09/2018 Influenza TIV (IM) 12/04/2015,01/30/2015, 014 Influenza Whole 01/14/2008 Influenza, Quadrivalent, Preservative Free 11/06 Influenza, Unspecified 12/15/2019,11/20/2010,11/2010 Moderna SARS-COV-2 06/14/2020,05/17/2020 Pneumococcal Conjugate 13-Valent 09/15/2015 Pneumococcal Polysaccharide 02/22/2020, 2 Shingrix 02/22/2020,12/15/2019 Tdap 09/15/2015,03/12/2014 Tetanus 09/29/2012 Zoster 02/22/2020,12/15/2019 Family History Medical History Relation Comments Alzheimer's disease Sister Relation Status Comments Sister Social History Tobacco Use Types Packs/Day Years Used Date Smoking Tobacco: Never Smokeless Tobacco: Never Alcohol Use Standard Drinks/Week Comments Not Currently 0 (1 standard drink = 0.6 oz pur e alcohol) Sex and Gender Information Value Date Recorded Sex Assigned at Not on file Legal Sex Male 3:30 PM EDT Gender Identity Not on file Sexual Orientation Not on file Last Filed Vital Signs Vital Sign Reading Time Taken Comments Blood Pressure 100/62 08/26/2023 2:10 PM EDT Pulse 74 08/26/2023 2:10 PM EDT Temperature - - Respiratory Rate - - Oxygen Saturation - - Inhaled Oxygen Concentration - - Weight - - Height - - Body Mass Index - - Plan of Treatment Health Maintenance Due Date Last Done Comments Colorectal Cancer Screening: Annual FOBT 1998 Colorectal Cancer Screening: Colonoscopy 1998 Colorectal Cancer Screening: Sigmoidoscopy 1998 Diabetes: Ophthalmology Exam 11/01/2020 03/24/2017 Diabetes: Pedal Pulse Checked 11/01/2020 Diabetes: Sensory Foot Exam 11/01/2020 Diabetes: Visual Foot Exam 11/01/2020 Diabetes: Hemoglobin A1C 02/05/2023 023, 09/19/2021, 04/25/2021, Additional history exists Hepatitis B Vaccine (3 of 3 - Hep B Twinrix 3-dose series) 04/15/2023 11/14/2022, 07/11/2022, 06/05/2018 Influenza Vaccine (Season Ended) 2024 12/15/2019, 02/05/2019, 11/06/2018, Additional history exists Pneumococcal Vaccine: 50+ Years Completed 02/22/2020, 09/15/2015, 01/28/2012 Procedures Procedure Name Priority Date/Time Associated Diagnosis Comments HEMOGLOBIN A1C Routine 04/05/2021 11:25 AM EST Stage 3a chronic kidney disease (HCC) from Last 3 Months or Most Recently Relevant to Health Maintenance Results * (ABNORMAL) Hemoglobin A1c (04/05/2021 11:25 AM EST) Hemoglobin A1C 7.2(H) (4.0-5.6) % [facility] Comment: MONITORING: In known diabetic patients, hemoglobin A1c targets should be discussed with health care provider. DIAGNOSTIC USE: ??The [place] Diabetes Association (ADA) and the World Health Organization (WHO) recommend the use of HbA1c to diagnose diabetes using a threshold of 6.5%. Patients who have an HbA1c between 5.7% and 6.4% are considered at increased risk for developing diabetes in the future. CAUTION: Falsely low HbA1c results may be observed in patients with hemolytic anemia, homozygous forms of abnormal hemoglobin (e.g. SS, CC, SC), , recent blood loss or hemoglobin F greater than 7%. Fructosamine may be used as an alternate test in these cases. REFERENCE: ADA: Standards of Medical Care in Diabetes 2020, The Journal of Clinical and Applied Research and Education Volume 43, Supplement 1 Testing performed or reported by [facility], a Service of [facility], [address] [place] [id number] Sienna Moncada MD, Paint Roller Covermaker [facility]# [id number] Blood (Blood, Venous) 04/05/2021 11:25 AM EST 04/05/2021 11:26 AM EST us Zhang Grover MD LAB BLOOD ORDERABLES Final Re sult [facility] from Last 3 Months or Most Recently Relevant to Health Maintenance Insurance , [facility]. [place], [place] [id number] [place] [address] ([id number]) , [facility]. [place], [place] [id number] [place] [address] ([id number]) ZOHRA MCDERMOTT [phone] Care Teams Financial Representative Relationship Specialty Start Date End Date Hillary Bennett PA-C [address] [place] [address] PCP - General Physician Asphalt Paving Superintendent 11/01/20
--- OUTSIDE RECORDS SUMMARY | 2024-06-09 08:29 | XMS_ITS | Clinical Summary ---
Author Organization [facility] Address [address] [place] [address] Care Team Providers Care Car Dispatcher Name Role Phone Phil Le MD Primary Care Provider [phone] Source Comments PLEASE NOTE, if this patient is a minor, it may be UNLAWFUL to discuss sensitive information that is contained in these records (such as FAMILY PLANNING, MENTAL HEALTH or SUBSTANCE ABUSE) with the minor patient's parent or other person without the patient's specific authorization.[facility] Allergies Active Allergy Reactions Criticality Noted Date Comments Lisinopril Cough 10/25/2017 Medications miscellaneous medical supply miscIndications: DM type 2 with diabetic peripheral neuropathy (HCC-CMS) by miscellaneous route once daily DX E11.9 Freestyle Shukri flash glucose scanning reader use w/sensor to check blood glucose TID Disp 1 1 Each 2018 Active miscellaneous medical supply miscIndications: DM type 2 with diabetic peripheral neuropathy (HCC-CMS) by miscellaneous route once daily DX E11.9-Freestyle Shukri Apply sensor every 10 day , place reader near sensor for reading 3 kits 5 refills 3 Each 5 2018 Active blood-glucose meter monitoring kitIndications:D iabetes mellitus type 2 in obese as needed for blood glucose monitoring 1 Each 2019 Active pregabalin (LYRICA) 100 mg capsuleIndicatio ns:Diabetic mononeuropathy associated with type 2 diabetes mellitus (HCC-CMS) TAKE 1 CAPSULE BY MOUTH TWICE A DAY 60 Capsule 1 2021 Active desonide (DESOWEN) 0.05 % ointmentIndicati ons:Dermatitis Apply topically 2 (two) times daily 15 g 2021 Active emollient combination no.115 (VANICREAM MOISTURIZING) lotnIndications: Dermatitis Apply 1 application topically 2 (two) times daily 227 g 1 2021 Active lidocaine (LIDODERM) 5 % patchIndications :Multiple joint pain 2022 Active diclofenac sodium (VOLTAREN) 1 % gelIndications:M ultiple joint pain 2022 Active bisacodyL (DULCOLAX) 5 mg EC tablet TAKE 2 TABLETS BY MOUTH RIGHT BEFORE YOUR DOSE OF LIQUID PREP [address] tabletIndication s:Diabetes mellitus type 2 in nonobese ([facility]) TAKE 1 TABLET BY MOUTH ONCE A DAY ^1R1 30 Tablet 5 2022 Active FARXIGA 10 mg tab Authorized by: ARELIS CHA 2022 Active sennosides-docus ate sodium (SENNA-S) 8.6-50 mg per tabletIndication s:Slow transit constipation TAKE ONE TABLET BY MOUTH EVERY DAY NEEDED FOR CONSTIPATION ^1R4 90 Tablet 1 2022 Active MISCELLANEOUS MEDICAL SUPPLY MISCIndications: Varicose veins of left lower extremity with pain Large size compression stockings x 99 years Ht 5'7 wt 227 lbs 2 Each 2022 Active losartan (COZAAR) 25 mg tabletIndication s:Essential hypertension TAKE ONE TABLET BY MOUTH EVERY DAY ^1R1 30 Tablet 5 2022 Active traZODone (DESYREL) 100 mg tabletIndication s:Trouble in sleeping TAKE ONE TABLET BY MOUTH AT BEDTIME ^1R4 30 Tablet 5 2022 Active bisacodyL (DULCOLAX) 10 mg suppository INSERT 1 SUPPOSITORY RECTALLY ONCE FOR 1 DOSE (BULK) 1 Suppository 2023 Active FREESTYLE LANCETS 28 gaugeIndications :Type 2 diabetes mellitus with hyperglycemia, unspecified whether intermediate insulin use ([facility]) USE DIRECTED TWO TIMES A DAY TO CHECK BG 100 Each 11 2023 Active blood sugar diagnostic (FREESTYLE LITE STRIPS) stripsIndication s:Type 2 diabetes mellitus with hyperglycemia, unspecified whether intermediate insulin use ([facility]) USE DIRECTED TWO TIMES A DAY 100 Each 11 03/04/ 2024 Active UNIFINE PENTIPS 31 gauge x 06/25 ndleIndications: Type 2 diabetes mellitus with hyperglycemia, unspecified whether intermediate insulin use ([facility]) USE DIRECTED TWO TIMES A DAY FOR INSULIN ADMINISTRATION 100 Each 2023 Active metoprolol succinate XL (TOPROL-XL) 25 mg 24 hr tabletIndication s:Heart failure with reduced ejection fraction ([facility]),NSTEMI (non-ST elevated myocardial infarction) ([facility]) TAKE ONE TABLET BY MOUTH EVERY DAY (R4 PER PT) ^1R4 90 Tablet 1 2023 Active tamsulosin (FLOMAX) 0.4 mg 24 hr capsuleIndicatio ns:Lower urinary tract symptoms (LUTS) TAKE ONE CAPSULE BY MOUTH EVERY DAY 30 MINUTES FOLLOWING THE SAME MEAL ONCE DAILY 30 Capsule 2023 Active acetaminophen (TYLENOL 8 HOUR) 650 mg CR tabletIndication s:Multiple joint pain TAKE ONE TABLET BY MOUTH AT BEDTIME ^1R4 30 Tablet 5 2023 Active rOPINIRole (REQUIP) 4 mg tabletIndication s:Muscle spasms of both lower extremities TAKE ONE TABLET BY MOUTH AT BEDTIME ^1R4 90 Tablet 1 2023 Active JANUMET XR 100-1,000 mg [id number]: Type 2 diabetes mellitus with hyperglycemia, unspecified whether intermediate insulin use ([facility]) TAKE ONE TABLET BY MOUTH EVERY DAY ^1R1 30 Tablet 2023 Active LANTUS SOLOSTAR U-100 INSULIN 100 unit/mL (3 mL) penIndications:T ype 2 diabetes mellitus with hyperglycemia, unspecified whether intermediate insulin use ([facility]) INJECT 40 UNITS UNDER THE SKIN AT BEDTIME (BULK) 30 mL 1 2023 Active omeprazole (PRILOSEC) [address] capsuleIndicatio ns:Epigastric pain,Gastroesoph ageal reflux disease without esophagitis TAKE ONE CAPSULE BY MOUTH EVERY MORNING 30 Capsule 5 2023 Active atorvastatin (LIPITOR) 20 mg tablet TAKE ONE TABLET BY MOUTH EVERY DAY ^1R4 30 Tablet 2024 Active levothyroxine 50 mcg tabletIndication s:Acquired hypothyroidism TAKE ONE TABLET BY MOUTH EVERY DAY ^1R1 30 Tablet 2024 Active alcohol swabsIndications :DM2 (diabetes mellitus, type 2) ([facility]) USE THREE TIMES A DAY (BULK) 100 Each 5 2024 Active polyethylene glycol, PEG, 3350 (GLYCOLAX) 17 gram/dose powderIndication s:Slow transit constipation TAKE ONE CAPFUL MIXED WITH 8 OZ OF FLUID AND DRINK BY MOUTH ONCE DAILY (BULK) 510 g 2 2024 Active ELIQUIS 5 mg tabIndications:A trial fibrillation, unspecified type ([facility]) TAKE ONE TABLET BY MOUTH TWICE A DAY ^1R1,1R4 60 Tablet 5 2024 Active lanolin-mineral oil (THERA-DERM) lotion APPLY TOPICALLY TO THE AFFECTED AREA(S) TWO TIMES A DAY (BULK) 236 mL 1 2024 Active ENTRESTO 24-26 mg tabIndications:H eart failure with reduced ejection fraction ([facility]) TAKE ONE TABLET BY MOUTH TWICE A DAY ^1R1,1R4 60 Tablet 5 2024 Active cholecalciferol, vitamin D3, 25 mcg (1,000 unit) capsuleIndicatio ns:Vitamin D deficiency TAKE ONE CAPSULE BY MOUTH EVERY DAY ^1R1 30 Capsule 2024 Active cholecalciferol, vitamin D3, 25 mcg (1,000 unit) capsuleIndicatio ns:Vitamin D deficiency TAKE ONE CAPSULE BY MOUTH EVERY DAY ^1R1 30 Capsule 06/03 Discontinued Active Problems Problem Noted Date Diagnosed Date NSTEMI (non-ST elevated myocardial infarction) ( [facility]) 08/01/2022 Atrial fibrillation ([facility]) 08/01/2022 Heart failure with reduced ejection fraction ([facility]) 08/01/2022 Neuropathy 07/16/2022 07/16/2022 Stage 3 chronic kidney disease ([facility]) 022 Chronic right-sided low back pain without sciati ca 08/06/2019 Slow transit constipation 08/06/2019 JUSTEN on CPAP 01/06/2018 Overview (01/06/2018): Diagnosis - 2013 H/O colonoscopy 03/07/2016 Overview (03/07/2016): Colonoscopy done at [facility] 05/20/2011 - impression internal hemorrhoids Otherwise normal colonoscopy to the terminal ileum- repeat recommendations 10 yrs - due 2021 Colitis 08/14/2015 Overview (08/14/2015): [facility] and [facility] ,CT abdomen consistent with colitis-tx with Flagyl and Levaquin Neuropathy, diabetic ([facility]) 01/19/2014 Phimosis 06/28/2013 Chronic LBP 01/15/2013 Hematuria 01/15/2013 Vitamin D deficiency 12/04/2012 Varicose vein of leg 12/04/2012 DM type 2 (diabetes mellitus, type 2) ([facility]) 09/29/2012 DM type 2 with diabetic peripheral neuropathy ([facility]) Obesity Essential hypertension Insomnia Depression Mixed hyperlipidemia Immunizations Immunization Administration Dates Next Due Flu, High Dose, 65y+, Fluzon e High Dose 12/09/2022,10/31/2021,12/15/2019 Flu, Preservative Free 11/06/2018 HEP A-HEP B 11/14/2022,07/11/2022 Hep B, Adult/Adol (ENERGIX/RECOMBIVAX) 9 INFLUENZA VIRUS VACCINE,SPLI T,6-35 MO (NON-INTERFACE) 11/20/2010,02/19/2010 INFLUENZA, SEASONAL, INJECTABLE 12/04/2015,01/30,12/01/2013 INFLUENZA, SEASONAL, INJECTA BLE, PRESERVATIVE FREE 01/15/2013 INFLUENZA, UNSPECIFIED 11/20/2010,02/19/2010 Influenza (FLUZONE), high-do se, trivalent, PF 02/05/2019,04/09/2018 Influenza, Whole 01/14/2008 MODERNA COVID-19 VACCINE BIV ALENT, BLUE CAP, 6M+ 07/11/2022 Moderna COVID-19 Vaccine, re d cap blue label, 12+ Primary Series 06/14/2020,05/17/2020 PNEUMOCOCCAL CONJUGATE PCV 13 09/15/2015 PNEUMOCOCCAL POLYSACCHARIDE PPV23 2020,12/15/2019(Deferred: Out of Stock),01/28/2012 TDAP 09/15/2015,03/12/2014 Tetanus Toxoid, Absorbed 09/29/2012 ZOSTER VACCINE, RECOMBINANT (SHINGRIX) 1,12/15/2019 Family History Medical History Relation Name Comments Cancer Brother Diabetes Brother Diabetes Mother Hypertension Mother Heart Problems Sister Relation Name Status Comments Brother Mother Sister Social History Tobacco Use Types Packs/Day Years Used Date Smoking Tobacco: Never Smokeless Tobacco: Never Tobacco Cessation:Counseling Given: Not Answered Alcohol Use Standard Drinks/Week Comments Yes 0 (1 standard drink = 0.6 oz pur e alcohol) occassionaly Social Connections Answer Date Recorded Connectedness 0 12/09/2022 Financial Resource Strain Answer Date R ecorded Financial Resource Strain 0 2022 Stress Answer Date Recorded Stress 0 12/09/2022 Physical Activity Answer Date Recorded Physical Activity 0 10/03/2018 Food Insecurity Answer Date Recorded Food 0 12/09/2022 Transportation Needs Answer Date Record ed Transportation 0 12/09/2022 Housing Stability Answer Date Recorded Housing 0 12/09/2022 Safety and Environment Answer Date Uriel rded Safety 0 12/09/2022 Utilities Answer Date Recorded Utilities 0 12/09/2022 Employment Answer Date Recorded Employment 0 10/03/2018 Sex and Gender Information Value Date Recorded Sex Assigned at Male 12/22/2016 7:14 PM PST Legal Sex Male 11:36 AM PDT Gender Identity Male 12/22/2016 7:14 PM PST Sexual Orientation Straight 12/22/2016 7: 14 PM PST Last Filed Vital Signs Vital Sign Reading Time Taken Comments Blood Pressure 120/68 01/01/2023 4:10 PM EST Pulse 62 01/01/2023 4:10 PM EST Temperature 36.7 ??C (98 ??F) 12/09/2022 2:02 PM EDT Respiratory Rate 18 12/09/2022 2:02 PM EDT Oxygen Saturation 98% 12/09/2022 2:02 PM EDT Inhaled Oxygen Concentration - - Weight 119.7 kg (263 lb 12.8 oz) 12/09/2022 2:02 PM EDT Height 170.2 cm (5' 7 ) 12/09/2022 2:02 PM EDT Body Mass Index 41.32 12/09/2022 2:02 PM EDT Plan of Treatment Health Maintenance Due Date Last Done Comments Dental FMX/Pano [address] Colonography 1994 Fecal DNA 1994 Flexible Sigmoidoscopy 1994 FIT/gFOBT 05/12/2018 05/12/2017, 03/07/2016 Retinopathy Screening 05/27/2019 05/26/2018 (Managed by Outside Provider) Colonoscopy 05/19/2021 05/20/2011 Colorectal Cancer Screening 05/19/2021 Falls Prevention 11/16/2022 11/16/2021 TSH Monitoring 11/16/2022 11/16/2021, 05/2019, 02/22/2019, Additional history exists Diabetes HbA1c 02/05/2023 11/06/2022, 0602/2022, 12/26/2021, Additional history exists Depression Monitoring 03/11/2023 12/09/2022 , 11/06/2022, 07/16/2022, Additional history exists Imm-Hepatitis A (3 of 3 - He p A Twinrix risk 3-dose series) 04/15/2023 11/14/2022, 07/11/2022 Dental Prophy 07/04/2023 01/01/2023, 06/10, 12/28/2021, Additional history exists HIV Screening 07/12/2023 07/11/2022 Lipid Screening 07/12/2023 07/11/2022, 1008/2021, 04/25/2021, Additional history exists Syphilis Screening 07/12/2023 07/11/2022 Medicare Annual Wellness Visit 07/17/2023 0 07/16/2022, 02/22/2020, 09/15/2015 [id number] ( season) 2023 07/11/2022, 06/14/2020, 05/17/2020 Imm-Influenza (#1) 2023 12/09/2022, 0 10/31/2021, 12/15/2019, Additional history exists Diabetes Foot Exam 11/07/2023 11/06/2022 Dental BW 01/04/2024 01/01/2023, 06/10, 12/28/2021, Additional history exists Dental Examination 01/04/2024 01/01/2023, 0 06/27/2022, 12/28/2021, Additional history exists Dental Perio Charting 01/04/2024 01/01/2023 , 06/27/2022, 12/28/2021 Alcohol and Drug Screen 02/11/2024 07/12/19 23, 10/31/2021, 04/23/2021, Additional history exists Serum Creatinine 02/28/2024 02/27/2023, , 07/11/2022, Additional history exists Urine Albumin Creatinine Rat io Screening 02/28/2024 02/27/2023, 07/11/2022, 06/07/2021, Additional history exists Imm-DTaP/Tdap/Td (3 - Td or Tdap) 09/14/2025 016, 03/12/2014 Hepatitis C Screening Completed 04/10/2018 Imm-Pneumococcal 65+ Completed 02/22/2020, 09/15/2015, 01/28/2012 Imm-Zoster, Recombinant Completed 02/22/2020, 12/14 Imm-Hepatitis B Completed 11/14/2022, 06/0 02/2022, 06/05/2018 Procedures Procedure Name Priority Date/Time Associated Diagnosis Comments COMP PERIODONTAL EVALUATION - NEW/EST PATIENT Routine 01/01/2023 3:40 PM EST Caries of enamel (incipient) BITEWINGS - TWO RADIOGRAPHIC IMAGES Routine 01/01/2023 3:40 PM EST Caries of enamel (incipient) PROPHYLAXIS - ADULT Routine 01/01/2023 3 :40 PM EST Caries of enamel (incipient) PERIODIC ORAL EVALUATION ESTABLISHED PATIENT Routine 01/01/2023 3:40 PM EST Caries of enamel (incipient) HGBA1C W/MPG Routine 11/06/2022 11:56 AM EDT BASIC METABOLIC PANEL CALCIUM TOTAL Routine 08/02/2022 10:43 AM EDT Pyelonephritis HIV 1/2 AG & AB W/RFLX (4TH GEN) Routine 07/11/2022 11:02 AM EDT Routine screening for STI (sexually transmitted infection) RPR W/RFLX TITER+FTA+CONF Routine 07/11/2022 11:02 AM EDT Routine screening for STI (sexually transmitted infection) LIPID PANEL Routine 07/11/2022 11:02 AM EDT DM type 2 with diabetic peripheral neuropathy (HCC-CMS) Essential hypertension MICROALBUMIN/CREATIN INE RATIO, URINE, RANDOM Routine 07/11/2022 11:02 AM EDT DM type 2 with diabetic peripheral neuropathy (HCC-CMS) THYROID PANEL WITH TSH Routine 11/16/2021 1:25 PM EDT Acquired hypothyroidism HEPATITIS A,B,C PANEL Routine 04/10/2018 10:10 AM EST Routine general medical examination at a health care facility COLONOSCOPY Routine 05/20/2011 from Last 3 Months or Most Recently Relevant to Health Maintenance Results * (ABNORMAL) HGBA1C W/MPG (11/06/2022 11:56 AM EDT) HEMOGLOBIN A1C 5.8(H) <5.7 % of total Hgb [facility] Comment: For someone without known diabetes, a hemoglobin A1c value between 5.7% and 6.4% is consistent with prediabetes and should be confirmed with a follow-up test. For someone with known diabetes, a value <7% indicates that their diabetes is well controlled. A1c targets should be individualized based on duration of diabetes, age, comorbid conditions, and other considerations. This assay result is consistent with an increased risk of diabetes. Currently, no consensus exists regarding use of hemoglobin A1c for diagnosis of diabetes for children. MEAN PLASMA GLUCOSE 129 mg/dL (calc) [facility] 11/06/2022 11:5 6 AM EDT 11/06/2022 11:57 AM EDT us Kristen LopezD LAB - BLOOD DRAW Edited Res ult - Final [facility] [address] [place] [id number], [facility] [address] [place] [phone] * (ABNORMAL) BASIC METABOLIC PANEL CALCIUM TOTAL (08/02/2022 10:43 AM EDT) Pathologist [facility] GLUCOSE 118(H) 65 - 99 mg/dL [facility] Comment: ?Fasting reference interval For someone without known diabetes, a glucose value between 100 and 125 mg/dL is consistent with prediabetes and should be confirmed with a follow-up test. UREA NITROGEN (BUN) 17 7 - 25 mg/dL [facility] CREATININE (blood) 1.06 0.70 - 1.28 mg/dL [facility] EGFR 74 > OR = 60 mL/min/1 .73m2 [facility] Comment: The eGFR is based on the CKD-EPI 2020 equation. To calculate the new eGFR from a previous Creatinine or Cystatin C result, go to https://www.kidney.org/professionals/ kdoqi/gfr%5Fcalculator BUN/CREATININE RATIO NOT APPLICABLE 6 - [facility] SODIUM 136 135 - 146 mmol/L [facility] POTASSIUM 4.8 3.5 - 5.3 mmol/L [facility] CHLORIDE 99 98 - 110 mmol/L [facility] CARBON DIOXIDE 31 20 - 32 mmol/L [facility] CALCIUM 10.0 8.6 - 10.3 mg/dL [facility] Blood Blood / Unknown 08/02/2022 1 0:43 AM EDT 08/02/2022 10:44 AM EDT us Lokesh Allen PA-C LAB - BLOOD DRAW Final Resul t [facility] [address] [address], [facility] [address] [place] [address] * HIV 1/2 AG & AB W/RFLX (4TH GEN) (07/11/2022 11:02 AM EDT) Pathologist [facility] HIV AG/AB, 4TH GEN NON-REAC TIVE NON-REAC TIVE [facility] Comment: HIV-1 antigen and HIV-1/HIV-2 antibodies were not detected. There is no laboratory evidence of HIV infection. PLEASE NOTE: This information has been disclosed to you from records whose confidentiality may be protected by state law. ??If your state requires such protection, then the state law prohibits you from making any further disclosure of the information without the specific written consent of the person to whom it pertains, or as otherwise permitted by law. A general authorization for the release of medical or other information is NOT sufficient for this purpose. ?? For additional information please refer to http://education.[employer]/faq/TFW500 (This link is being provided for informational/ educational purposes only.) The performance of this assay has not been clinically validated in patients less than 2 years old. Blood Blood / Unknown 07/11/2022 1 1:02 AM EDT 07/11/2022 11:03 AM EDT Narrative [facility] - 07/15/2022 1:23 PM EDT FASTING:NO us Hillary Bennett PA-C LAB - BLOOD DRAW Final Resul t Performing Organization Address [facility] Co de Phone Number [facility] [address] [place] [phone], [facility] [address] [phone] * RPR W/RFLX TITER+FTA+CONF (07/11/2022 11:02 AM EDT) RPR (DX) W/REFL TITER AND CONFIRMATORY TESTING NON-REACT LEONCIO NON-REACT LEONCIO [facility] Blood Blood / Unknown 07/11/2022 1 1:02 AM EDT 07/11/2022 11:03 AM EDT Narrative [facility] - 07/15/2022 1:23 PM EDT FASTING:NO us Hillary Bennett PA-C LAB - BLOOD DRAW Edited Resu lt - Final Performing Organization Address City/[facility]/ZIP Co de Phone Number [facility] [address] [place] [phone], [facility] [address] [phone] * MICROALBUMIN/CREATININE RATIO, URINE, RANDOM (07/11/2022 11:02 AM EDT) CREATININE, RANDOM URINE 95 20 - 320 mg/dL [facility] MICROALBUMIN 0.3 mg/dL [employer] Comment: Reference Range Not established MICROALBUMIN/CREA TININE RATIO, RANDOM URINE 3 <30 mcg/mg creat [facility] Comment: The ADA defines abnormalities in albumin excretion as follows: Albuminuria Category ?Result (mcg/mg creatinine) Normal to Mildly increased ?? <30 Moderately increased ? 30-299 Severely increased ? > OR = 300 The ADA recommends that at least two of three specimens collected within a 3-6 month period be abnormal before considering a patient to be within a diagnostic category. Urine Urine specimen / Unknown 07/11/2022 11:02 AM EDT 07/11/2022 11:03 AM EDT Narrative [facility] - 07/15/2022 1:23 PM EDT FASTING:NO Hillary Bennett PA-C LAB - NO BLOOD DRAW Final Re sult [facility] [address] [address], [facility] [address] [address] * (ABNORMAL) LIPID PANEL (07/11/2022 11:02 AM EDT) CHOLESTEROL, TOTAL 116 <200 mg/dL [facility] HDL CHOLESTEROL 33(L) > OR = 40 mg/dL [facility] TRIGLYCERIDES 138 <150 mg/dL [facility] LDL-CHOLESTEROL 61 99 mg/dL (calc) [facility] Comment: Reference range: <100 Desirable range <100 mg/dL for primary prevention; ?? <70 mg/dL for patients with CHD or diabetic patients with > or = 2 CHD risk factors. LDL-C is now calculated using the Bebo calculation, which is a validated novel method providing better accuracy than the Friedewald equation in the estimation of LDL-C. Francisco MURO et al. STEVEN. 2013;310(19): 2136-3139 (http://education.[facility]/faq/JNP167) CHOL/HDLC RATIO 3.5 <5.0 (calc) [facility] NON-HDL CHOLESTEROL 83 <130 mg/dL (calc) [facility] Comment: For patients with diabetes plus 1 major ASCVD risk factor, treating to a non-HDL-C goal of <100 mg/dL (LDL-C of <70 mg/dL) is considered a therapeutic option. Blood Blood / Unknown 07/11/2022 1 1:02 AM EDT 07/11/2022 11:03 AM EDT Narrative [facility] - 07/15/2022 1:23 PM EDT FASTING:NO us Hillary Bennett PA-C LAB - BLOOD DRAW Final Resul t Performing Organization Address [facility] Co de Phone Number [facility] [address] [address], [facility] [address] [phone] * (ABNORMAL) THYROID PANEL WITH TSH (11/16/2021 1:25 PM EDT) TSH 1.15 0.40 - 4.50 mIU/L [facility] T-3 UPTAKE 29 22 - 35 % UNX [facility] T-4 (THYROXINE), TOTAL 10.9(H) 4.9 - 10.5 mcg/dL [facility] FREE T4 INDEX (T7) 3.2 1.4 - 3.8 [employer] [facility] Blood Blood / Unknown 11/16/2021 1 :25 PM EDT 11/16/2021 1:25 PM EDT Narrative [facility] - 11/20/2021 9:07 PM EDT FASTING:YES us Hillary Bennett PA-C LAB - BLOOD DRAW Final Resul t Performing Organization Address [facility] Co de Phone Number [facility] [address] [address], [facility] [address],[facility] [place] [address] * (ABNORMAL) HEPATITIS A,B,C PANEL (04/10/2018 10:10 AM EST) HEPATITIS B SURFACE ANTIBODY NEGATIVE NEGATIVE [facility] HEPATITIS B SURFACE ANTIGEN NEGATIVE NEGATIVE [facility] Comment: Over the counter supplements containing high doses of biotin may interfere with this assay. ??If interference is suspected, patients shoud be retested after refraining from biotin supplements for 72 hours. HEPATITIS C VIRUS DIAGNOSTIC NEGATIVE NEGATIVE [facility] HEPATITIS B CORE ANTIBODY NEGATIVE NEGATIVE [facility] HEPATITIS A ANTIBODY TOTAL POSITIVE(A) NEGATIVE [facility] Comment: Over the counter supplements containing high doses of biotin may interfere with this assay. ??If interference is suspected, patients shoud be retested after refraining from biotin supplements for 72 hours. Blood specimen (specimen) Blood / Unknown 04/10/2018 10:10 AM EST 04/10/2018 10:51 AM EST Narrative [facility] - 04/10/2018 1:23 PM EST [employer], [place] [address] Automated Weaver - Tanya Sears MD PT ID [id number] ORD# [id number] Kev CASEY LAB - BLOOD DRAW Edited Result - Final [address] [address], * COLONOSCOPY (05/20/2011) us Provider [facility] PROCEDURES Final Result from Last 3 Months or Most Recently Relevant to Health Maintenance Insurance [employer] NET D[facility] Member Subscriber Plan / Payer (Ef fective 2019-Present) Name:Bryan Mtz Relation to Subscriber:Self Name:Bryan Mtz Payer ID:[id number] Group ID:Not on file Type:Indemni Address: [facility] [address] [address] [place] MEDICAID DENTAL [facility] - DENTAL Care Teams Car Dispatcher Relationship Specialty Start Date End Date Phil Le MD [address] [place] [address] PCP - General Internal Medicine 04/06/24
--- OUTSIDE RECORDS SUMMARY | 2024-06-09 08:29 | XMS_ITS | Encounter Summary ---
Author Organization [facility] Address [address] [place] [address] Phone Care Team Providers Care Medical Secretary Receptionist Name Role Phone Hillary Bennett PA-C Primary Care Provider Encounter Details Date Type Department Care Team (Late st Contact Info) Description 06/07/2021 Documentation Only [facility] [place], [address] [place] [address] Chemo Odell MD [address] [id number] Social History Tobacco Use Types Packs/Day Years Used Date Smoking Tobacco: Never Assessed Sex and Gender Information Value Date Recorded Sex Assigned at Not on file Legal Sex Male 3:30 PM EDT Gender Identity Not on file Sexual Orientation Not on file documented as of this encounter Plan of Treatment Not on file documented as of this encounter Visit Diagnoses Not on filedocumented in this encounter Care Teams Medical Secretary Receptionist Relationship Specialty Start Date End Date Hillary Bennett PA-C [address] [place] [address] PCP - General Physician Cycle Liaison 11/01/20 documented as of this encounter
--- OUTSIDE RECORDS SUMMARY | 2024-06-09 08:29 | XMS_ITS | Encounter Summary ---
Author Organization [facility] [place], Address [address] [place] [address] Phone Care Team Providers Care Corporate Events Director Name Role Phone Hillary Bennett PA-C Primary Care Provider Encounter Details Date Type Department Care Team (Late st Contact Info) Description 08/25/2023 Documentation Only [facility] [place], [address] [place] [address] Stephanie Funes [address] [place] [address] Social History Tobacco Use Types [...] on filedocumented in this encounter Care Teams Corporate Events Director Relationship Specialty Start Date End Date Hillary Bennett PA-C [address] [place] [address] PCP - General Physician Signal Apprentice 11/01/20 documented as of this encounter
--- OUTSIDE RECORDS SUMMARY | 2024-06-09 08:29 | XMS_ITS | Encounter Summary ---
Author Organization [facility] [place], Address [address] [place] [address] Phone Care Team Providers Care Pipe Fitter Ammonia Name Role Phone Hillary Bennett PA-C Primary Care Provider Encounter Details Date Type Department Care Team (Late st Contact Info) Description 04/26/2024 Documentation Only [facility] [place], [address] [place] [address] Stephanie Funes [address] [place] [address] Social History Tobacco Use Types [...] on filedocumented in this encounter Care Teams Pipe Fitter Ammonia Relationship Specialty Start Date End Date Hillary Bennett PA-C [address] [place] [address] PCP - General Physician Separator Tender 11/01/20 documented as of this encounter
--- OUTSIDE RECORDS SUMMARY | 2024-06-09 08:29 | XMS_ITS | Encounter Summary ---
Author Organization [facility] [place], Address [address] [place] [address] Phone Care Team Providers Care Websphere Commerce Developer Name Role Phone Hillary Bennett PA-C Primary Care Provider [phone] Encounter Details Date Type Department Care Team (Late st Contact Info) Description 04/26/2024 Documentation Only [facility] [place], [address] [place] [address] Stephanie Funes [address] [place] [address] Social History Tobacco Use Types [...] on filedocumented in this encounter Care Teams Websphere Commerce Developer Relationship Specialty Start Date End Date Hillary Bennett PA-C [address] [place] [address] PCP - General Physician Cuff Setter Lockstitch 11/01/20 documented as of this encounter
[2024-06-09 09:40] LABS: Prostate Specific Antigen 9.56 ng/mL (<0.05-4.0)
== END 2024-06-09 08:13 | disposition home or self-care (01) ==
LOC: HO.LAB 08:12
PROVIDERS: PCP Family Medicine; Visit Provider Urology
DX: N40.1 Benign prostatic hyperplasia with lower urinary tract symptoms (principal); R39.12 Poor urinary stream; N48.1 Balanitis; N35.919 Unspecified urethral stricture, male, unspecified site; Z12.5 Encounter for screening for malignant neoplasm of prostate
CPT/HCPCS: 36415; 84153

== ENCOUNTER 2024-06-15 10:06 | Outpatient (REF) | payer OTHER, SELFPAY ==
--- OUTSIDE RECORDS SUMMARY | 2024-06-15 13:26 | XMS_ITS | Encounter Summary ---
Author Organization [facility] Address [address] [place] [address] Care Team Providers Care Tax Investigator Name Role Phone Phil Le MD Primary Care Provider [phone] Encounter Details Date Type Department Care Team (Late st Contact Info) Description 11/07/2022 Interim Notes [facility] [address] [place] [address] Yulia Grier [address] [place] [address] Social History Tobacco Use Types Packs/Day Years [...] documented as of this encounter Care Teams Tax Investigator Relationship Specialty Start Date End Date Phil Le MD [address] [place] [address] PCP - General Internal Medicine 04/06/24 documented as of this encounter
--- OUTSIDE RECORDS SUMMARY | 2024-06-15 13:26 | XMS_ITS | Encounter Summary ---
Author Organization [facility] [facility], Address [address] [place] [address] Phone Care Team Providers Care Bag Mender Name Role Phone Hillary Bennett PA-C Primary Care Provider Encounter Details Date Type Department Care Team (Late st Contact Info) Description 08/25/2023 Documentation Only [facility], [address] [place] [address] Stephanie Funes [address] [place] [address] Social History Tobacco Use Types [...] on filedocumented in this encounter Care Teams Bag Mender Relationship Specialty Start Date End Date Hillary Bennett PA-C [address] [place] [address] PCP - General Physician Share Dairy Farmer 11/01/20 documented as of this encounter
--- OUTSIDE RECORDS SUMMARY | 2024-06-15 13:26 | XMS_ITS | Encounter Summary ---
Author Organization [facility] [place], Address [address] [place] [address] Phone Care Team Providers Care Diesel Dinkey Operator Name Role Phone Hillary Bennett PA-C Primary Care Provider Encounter Details Date Type Department Care Team (Late st Contact Info) Description 08/25/2023 Documentation Only [facility], [address] [place] [address] Stephanie Funes [address] [place] [address] Social History Tobacco Use Types [...] on filedocumented in this encounter Care Teams Diesel Dinkey Operator Relationship Specialty Start Date End Date Hillary Bennett PA-C [address] [place] [address] PCP - General Physician Senior Datastage Developer 11/01/20 documented as of this encounter
--- OUTSIDE RECORDS SUMMARY | 2024-06-15 13:26 | XMS_ITS | Encounter Summary ---
Author Organization [facility] Address [address] [place] [address] Phone Care Team Providers Care Psychiatry Teacher Name Role Phone Hillary Bennett PA-C Primary Care Provider [phone] Encounter Details Date Type Department Care Team (Late st Contact Info) Description 06/07/2021 Documentation Only [facility] [place], [address] [place] [address] Chemo Odell MD [address] [phone] Social History Tobacco Use Types Packs/Day Years [...] on filedocumented in this encounter Care Teams Psychiatry Teacher Relationship Specialty Start Date End Date Hillary Bennett PA-C [address] [place] [address] PCP - General Physician Solid Waste Engineer 11/01/20 documented as of this encounter
--- OUTSIDE RECORDS SUMMARY | 2024-06-15 13:26 | XMS_ITS | Encounter Summary ---
Author Organization [facility], Address [address] [place] [address] Phone Care Team Providers Care Casting House Worker Name Role Phone Hillary Bennett PA-C Primary Care Provider Encounter Details Date Type Department Care Team (Late st Contact Info) Description 08/25/2023 Documentation Only [facility], [address] [place] [address] Stephanie Funes [address] [place] [address] Social History Tobacco Use Types [...] on filedocumented in this encounter Care Teams Casting House Worker Relationship Specialty Start Date End Date Hillary Bennett PA-C [address] [place] [address] PCP - General Physician Band Ripsaw Operator 11/01/20 documented as of this encounter
--- OUTSIDE RECORDS SUMMARY | 2024-06-15 13:26 | XMS_ITS | Clinical Summary ---
Author Organization [facility] Address [address] [place] [address] Care Team Providers Care Bmw Service Technician Name Role Phone Phil Le MD Primary Care Provider [phone] Source Comments PLEASE NOTE, if this patient [...] tabletIndication s:Diabetes mellitus type 2 in nonobese ([facility]) TAKE 1 TABLET BY MOUTH ONCE A [...] 2 diabetes mellitus with hyperglycemia, unspecified whether [place] insulin use ([facility]) USE DIRECTED TWO TIMES A DAY TO CHECK BG 100 Each 11 2023 Active blood sugar diagnostic (FREESTYLE LITE STRIPS) stripsIndication s:Type 2 diabetes mellitus with hyperglycemia, unspecified whether remote computer terminal operator insulin use ([facility]) USE DIRECTED TWO TIMES A DAY 100 Each 11 03/04/ 2024 Active UNIFINE PENTIPS 31 gauge x 06/25 ndleIndications: Type 2 diabetes mellitus with hyperglycemia, unspecified whether remote computer terminal operator insulin use ([facility]) USE DIRECTED TWO TIMES A DAY FOR INSULIN ADMINISTRATION 100 Each 2023 Active metoprolol succinate XL (TOPROL-XL) 25 mg 24 hr tabletIndication s:Heart failure with reduced ejection fraction ([facility]),NSTEMI (non-ST elevated myocardial infarction) ([facility]) TAKE ONE TABLET BY MOUTH EVERY DAY [...] 1 2023 Active JANUMET XR 100-1,000 mg [id number]: Type 2 diabetes mellitus with hyperglycemia, unspecified whether [place] [facility] insulin use ([facility]) TAKE ONE TABLET BY MOUTH EVERY DAY ^1R1 30 Tablet 2023 Active LANTUS SOLOSTAR U-100 INSULIN 100 unit/mL (3 mL) penIndications:T ype 2 diabetes mellitus with hyperglycemia, unspecified whether remote computer terminal operator insulin use ([facility]) INJECT 40 UNITS UNDER THE SKIN AT [...] alcohol swabsIndications :DM2 (diabetes mellitus, type 2) ([facility]) USE THREE TIMES A DAY (BULK) 100 Each 5 2024 Active polyethylene glycol, PEG, 3350 (GLYCOLAX) 17 gram/dose powderIndication s:Slow transit constipation TAKE ONE CAPFUL MIXED WITH 8 OZ OF FLUID AND DRINK BY MOUTH ONCE DAILY (BULK) 510 g 2 2024 Active ELIQUIS 5 mg tabIndications:A trial fibrillation, unspecified type ([facility]) TAKE ONE TABLET BY MOUTH TWICE A DAY ^1R1,1R4 60 Tablet 5 2024 Active lanolin-mineral oil (THERA-DERM) lotion APPLY TOPICALLY TO THE AFFECTED AREA(S) TWO TIMES A DAY (BULK) 236 mL 1 2024 Active ENTRESTO 24-26 mg tabIndications:H eart failure with reduced ejection fraction ([facility]) TAKE ONE TABLET BY MOUTH TWICE A [...] Date NSTEMI (non-ST elevated myocardial infarction) ( [facility]) 08/01/2022 Atrial fibrillation ([facility]) 08/01/2022 Heart failure with reduced ejection fraction ([facility]) 08/01/2022 Neuropathy 07/16/2022 07/16/2022 Stage 3 chronic kidney disease ([facility]) 022 Chronic right-sided low back pain without sciati ca 08/06/2019 Slow transit constipation 08/06/2019 JUSTEN on CPAP 01/06/2018 Overview (01/06/2018): Diagnosis - 2013 H/O colonoscopy 03/07/2016 Overview (03/07/2016): Colonoscopy done at [facility] 05/20/2011 - impression internal hemorrhoids Otherwise normal colonoscopy to the terminal ileum- repeat recommendations 10 yrs - due 2021 Colitis 08/14/2015 Overview (08/14/2015): Se[facility] in [facility] ,CT abdomen consistent with colitis-tx with Flagyl and Levaquin Neuropathy, diabetic ([facility]) 01/19/2014 Phimosis 06/28/2013 Chronic LBP 01/15/2013 Hematuria 01/15/2013 Vitamin D deficiency 12/04/2012 Varicose vein of leg 12/04/2012 DM type 2 (diabetes mellitus, type 2) ([facility]) 09/29/2012 DM type 2 with diabetic peripheral neuropathy ([facility]) Obesity Essential hypertension Insomnia Depression Mixed hyperlipidemia [...] Wellness Visit 07/17/2023 0 07/16/2022, 02/22/2020, 09/15/2015 [id number] ( season) 2023 07/11/2022, 06/14/2020, 05/17/2020 Imm-Influenza [...] Routine general medical examination at a [facility] facility COLONOSCOPY Routine 05/20/2011 from Last 3 Months or Most Recently Relevant to Health Maintenance Results * (ABNORMAL) HGBA1C W/MPG (11/06/2022 11:56 AM EDT) HEMOGLOBIN A1C 5.8(H) <5.7 % of total Hgb [employer] Comment: For someone without known diabetes, a [...] children. MEAN PLASMA GLUCOSE 129 mg/dL (calc) [facility] 11/06/2022 11:5 6 AM EDT 11/06/2022 11:57 AM EDT us Kristen LopezD LAB - BLOOD DRAW Edited Res ult - Final [facility] [address] [place] [address], [facility] [address] [place] [address] * (ABNORMAL) BASIC METABOLIC PANEL CALCIUM TOTAL (08/02/2022 10:43 AM EDT) GLUCOSE 118(H) 65 - 99 mg/dL [email or web address] [facility] Comment: ?Fasting reference interval For someone without known diabetes, a glucose value between 100 and 125 mg/dL is consistent with prediabetes and should be confirmed with a follow-up test. UREA NITROGEN (BUN) 17 7 - 25 mg/dL [facility] CREATININE (blood) 1.06 0.70 - 1.28 mg/dL [facility] EGFR 74 > OR = 60 mL/min/1 .73m2 [employer] Comment: The eGFR is based on the CKD-EPI 2020 equation. To calculate the new eGFR from a previous Creatinine or Cystatin C result, go to https://www.kidney.org/professionals/ kdoqi/gfr%5Fcalculator BUN/CREATININE RATIO NOT APPLICABLE [facility] SODIUM 136 135 - 146 mmol/L [facility] POTASSIUM 4.8 3.5 - 5.3 mmol/L [facility] CHLORIDE 99 98 - 110 mmol/L [facility] CARBON DIOXIDE 31 20 - 32 mmol/L [facility] CALCIUM 10.0 8.6 - 10.3 mg/dL [facility] Blood Blood / Unknown 08/02/2022 1 0:43 AM EDT 08/02/2022 10:44 AM EDT us Lokesh Allen PA-C LAB - BLOOD DRAW Final Resul t [facility] [address] [address], [facility] [address] [place] [address] * HIV 1/2 AG & AB W/RFLX (4TH GEN) (07/11/2022 11:02 AM EDT) Pathologist [facility] HIV AG/AB, 4TH GEN NON-REAC TIVE NON-REAC TIVE [facility] Comment: HIV-1 antigen and HIV-1/HIV-2 antibodies were [...] ?? For additional information please refer to http://education.Moxsie/faq/LMK014 (This link is being provided for informational/ educational purposes only.) The performance of this assay has not been clinically validated in patients less than 2 years old. Blood Blood / Unknown 07/11/2022 1 1:02 AM EDT 07/11/2022 11:03 AM EDT Narrative [facility] - 07/15/2022 1:23 PM EDT FASTING:NO us Hillary Bennett PA-C LAB - BLOOD DRAW Final Resul t Performing Organization Address [facility] Co de Phone Number [facility] [address] [place] [address], [employer] [address] [address] * RPR W/RFLX TITER+FTA+CONF (07/11/2022 11:02 AM EDT) RPR (DX) W/REFL TITER AND CONFIRMATORY TESTING NON-REACT LEONCIO NON-REACT LEONCIO [email or web address] [facility] Blood Blood / Unknown 07/11/2022 1 1:02 AM EDT 07/11/2022 11:03 AM EDT Narrative [facility] - 07/15/2022 1:23 PM EDT FASTING:NO us Hillary Bennett PA-C LAB - BLOOD DRAW Edited Resu lt - Final Performing Organization Address City/[facility]/ZIP Co de Phone Number [facility] [address] [place] [address], [employer] [address] [address] * MICROALBUMIN/CREATININE RATIO, URINE, RANDOM (07/11/2022 11:02 AM EDT) CREATININE, RANDOM URINE 95 20 - 320 mg/dL [facility] MICROALBUMIN 0.3 mg/dL [employer] [facility] Comment: Reference Range Not established MICROALBUMIN/CREA TININE RATIO, RANDOM URINE 3 <30 mcg/mg creat [facility] Comment: The ADA defines abnormalities in albumin [...] AM EDT 07/11/2022 11:03 AM EDT Narrative [employer] [facility] - 07/15/2022 1:23 PM EDT FASTING:NO Hillary Bennett PA-C LAB - NO BLOOD DRAW Final Re sult [employer] [address] [address], [facility] [address] [address] * (ABNORMAL) LIPID PANEL (07/11/2022 11:02 AM EDT) Pathologist [facility] CHOLESTEROL, TOTAL 116 <200 mg/dL [facility] HDL CHOLESTEROL 33(L) > OR = 40 mg/dL [facility] TRIGLYCERIDES 138 <150 mg/dL [facility] LDL-CHOLESTEROL 61 99 mg/dL (calc) [facility] Comment: Reference range: <100 Desirable range <100 mg/dL for primary prevention; ?? <70 mg/dL for patients with CHD or diabetic patients with > or = 2 CHD risk factors. LDL-C is now calculated using the Bebo calculation, which is a validated novel method providing better accuracy than the Friedewald equation in the estimation of LDL-C. Francisco MURO et al. STEVEN. 2013;310(19): 5511-8244 (http://education.PayPal.VibeSec/faq/RME728) CHOL/HDLC RATIO 3.5 <5.0 (calc) [facility] NON-HDL CHOLESTEROL 83 <130 mg/dL (calc) [facility] Comment: For patients with diabetes plus 1 major ASCVD risk factor, treating to a non-HDL-C goal of <100 mg/dL (LDL-C of <70 mg/dL) is considered a therapeutic option. Blood Blood / Unknown 07/11/2022 1 1:02 AM EDT 07/11/2022 11:03 AM EDT Narrative [employer] [facility] - 07/15/2022 1:23 PM EDT FASTING:NO WayConnectedmay Bennett PA-C LAB - BLOOD DRAW Final Resul t Performing Organization Address [facility] de Phone Number [facility] [address] [address], [facility] [address] [address] * (ABNORMAL) THYROID PANEL WITH TSH (11/16/2021 1:25 PM EDT) TSH 1.15 0.40 - 4.50 mIU/L [facility] T-3 UPTAKE 29 22 - 35 % [employer] [facility] T-4 (THYROXINE), TOTAL 10.9(H) 4.9 - 10.5 mcg/dL [facility] FREE T4 INDEX (T7) 3.2 1.4 - 3.8 [employer] [facility] Blood Blood / Unknown 11/16/2021 1 :25 PM EDT 11/16/2021 1:25 PM EDT Narrative [employer] [facility] - 11/20/2021 9:07 PM EDT FASTING:YES [employer] Sabrina العلي[employer] LAB - BLOOD DRAW Final Resul t Performing Organization Address [facility] Co de Phone Number [facility] [address] [address], [employer] [address] [address] * (ABNORMAL) HEPATITIS A,B,C PANEL (04/10/2018 10:10 AM EST) HEPATITIS B SURFACE ANTIBODY NEGATIVE NEGATIVE [facility] HEPATITIS B SURFACE ANTIGEN NEGATIVE NEGATIVE [facility] Comment: Over the counter supplements containing high doses of biotin may interfere with this assay. ??If interference is suspected, patients shoud be retested after refraining from biotin supplements for 72 hours. HEPATITIS C VIRUS DIAGNOSTIC NEGATIVE NEGATIVE [facility] HEPATITIS B CORE ANTIBODY NEGATIVE NEGATIVE [facility] HEPATITIS A ANTIBODY TOTAL POSITIVE(A) NEGATIVE [facility] Comment: Over the counter supplements containing high doses of biotin may interfere with this assay. ??If interference is suspected, patients shoud be retested after refraining from biotin supplements for 72 hours. Blood specimen (specimen) Blood / Unknown 04/10/2018 10:10 AM EST 04/10/2018 10:51 AM EST Narrative [facility] - 04/10/2018 1:23 PM EST [address] [employer]!, [place] [address] Camp Manager - Tanya Sears MD [place] [id number] ORD# [id number] Kev CASEY LAB - BLOOD DRAW Edited Result - Final [address] [address], * COLONOSCOPY (05/20/2011) us Provider [facility] PROCEDURES Final Result from Last 3 Months or Most Recently Relevant to Health Maintenance Insurance [employer] NET DENTAL [facility] Member Subscriber Plan / Payer (Ef fective 2019-Present) Name:Bryan Mtz Relation to Subscriber:Self Name:Bryan Mtz Payer ID:[id number] Group ID:Not on file Type:Indemnity Address: [address] [place] [id number] [place] MED[place] D[facility] [facility] Care Teams Bmw Service Technician Relationship Specialty Start Date End Date Phil Le MD [address] [place] [address] PCP - General Internal Medicine 04/06/24
--- OUTSIDE RECORDS SUMMARY | 2024-06-15 13:26 | XMS_ITS | Clinical Summary ---
Author Organization [facility], Address [address] [place] [address] [place] [address] Phone Care Team Providers Care Secretary Of State Name Role Phone Hillary Bennett PA-C Primary Care Provider [phone] Allergies Active Allergy Reactions Criticality Noted Date [...] Only [facility], [address] [place] [address] MarinStephanie garcia 04/26/2024 Documentation Only [facility] [address] [place] [address] Marin, Stephanie 04/26/2024 Documentation Only [facility] [address] [place] [address] Marin, Stephanie 04/26/2024 Documentation Only [facility] [address] [place] [address] Marin, Stephanie 04/26/2024 Documentation Only [facility] [address] [place] [address] Stephanie Funes from Last 3 Months [...] AM EST) Hemoglobin A1C 7.2(H) (4.0-5.6) % [facility] Comment: MONITORING: In known diabetic patients, hemoglobin A1c targets should be discussed with health care provider. DIAGNOSTIC USE: ??The [place] Diabetes Association (ADA) and the World Health [...] Supplement 1 Testing performed or reported by [facility], a Service of [facility], [address] [place] [address] Sienna Moncada MD, Water Tender [facility]# [id number] Blood (Blood, Venous) 04/05/2021 11:25 AM EST 04/05/2021 11:26 AM EST us Zhang Grover MD LAB BLOOD ORDERABLES Final Re sult [facility] from Last 3 Months or Most Recently Relevant to Health Maintenance Insurance , [address] [place], [place] [id number] [place] [address] ([id number]) , [address] [place], [place] [id number] [place] [address] ([id number]) [place] [phone] Care Teams Secretary Of State Relationship Specialty Start Date End Date Hillary Bennett PA-C [address] [place] [address] PCP - General Physician Electrical Project Manager 11/01/20
--- OUTSIDE RECORDS SUMMARY | 2024-06-15 13:26 | XMS_ITS | Encounter Summary ---
Author Organization [facility], Address [address] [place] [address] Phone Care Team Providers Care Pediatric Intensive Physician Name Role Phone Hillary Bennett PA-C Primary Care Provider [phone] Encounter Details Date Type Department Care Team (Late st Contact Info) Description 04/26/2024 Documentation Only [facility], [address] [place] [address] Stephanie Funes [address] [place] [address] Social History Tobacco Use Types [...] on filedocumented in this encounter Care Teams Pediatric Intensive Physician Relationship Specialty Start Date End Date Hillary Bennett PA-C [address] [place] [address] PCP - General Physician Trench Trimmer Fine 11/01/20 documented as of this encounter
--- OUTSIDE RECORDS SUMMARY | 2024-06-15 13:26 | XMS_ITS | Encounter Summary ---
Author Organization [facility], Address [address] [place] [address] Phone Care Team Providers Care Medical Detailist Name Role Phone Hillary Bennett PA-C Primary Care Provider Encounter Details Date Type Department Care Team (Late st Contact Info) Description 04/26/2024 Documentation Only [facility], [address] [place] [address] Stephanie Funes [address] [place] [address] Social History Tobacco Use Types [...] filedocumented in this encounter Care Teams Medical Detailist Relationship Specialty Start Date End Date Hillary Bennett PA-C [address] [place] [address] PCP - General Physician Honing Machine Operator Production 11/01/20 documented as of this encounter
--- OUTSIDE RECORDS SUMMARY | 2024-06-15 13:26 | XMS_ITS | Encounter Summary ---
Author Organization [facility], Address [address] [place] [address] Phone Care Team Providers Care Resource Analyst Name Role Phone Hillary Bennett PA-C Primary Care Provider Encounter Details Date Type Department Care Team (Late st Contact Info) Description 04/26/2024 Documentation Only [facility], [address] [place] [address] Stephanie Funes [address] [place] [address] Social History Tobacco Use Types [...] on filedocumented in this encounter Care Teams Resource Analyst Relationship Specialty Start Date End Date Hillary Bennett PA-C [address] [place] [address] PCP - General Physician Coding File Clerk 11/01/20 documented as of this encounter
--- OUTSIDE RECORDS SUMMARY | 2024-06-15 13:26 | XMS_ITS | Encounter Summary ---
Author Organization [facility], Address [address] [place] [address] Phone Care Team Providers Care Cocoa Milling Machine Operator Name Role Phone Hillary Bennett PA-C Primary Care Provider Encounter Details Date Type Department Care Team (Late st Contact Info) Description 04/26/2024 Documentation Only [facility], [address] [place] [address] Stephanie Funes [address] [place] [address] Social History Tobacco Use Types [...] on filedocumented in this encounter Care Teams Cocoa Milling Machine Operator Relationship Specialty Start Date End Date Hillary Bennett PA-C [address] [place] [address] PCP - General Physician Sow Farm Barn Technician 11/01/20 documented as of this encounter
--- OUTSIDE RECORDS SUMMARY | 2024-06-15 13:26 | XMS_ITS | Encounter Summary ---
Author Organization [facility], Address [address] [place] [address] Phone Care Team Providers Care Stations Superintendent Name Role Phone Hillary Bennett PA-C Primary Care Provider Encounter Details Date Type Department Care Team (Late st Contact Info) Description 08/25/2023 Documentation Only [facility], [address] [place] [address] Stephanie Funes [address] [place] [address] Social History Tobacco Use Types [...] on filedocumented in this encounter Care Teams Stations Superintendent Relationship Specialty Start Date End Date Hillary Bennett PA-C [address] [place] [address] PCP - General Physician Culture Media Laboratory Assistant 11/01/20 documented as of this encounter
--- OUTSIDE RECORDS SUMMARY | 2024-06-15 13:26 | XMS_ITS | Encounter Summary ---
Author Organization [facility], Address [address] [place] [address] Phone Care Team Providers Care Transport Manager Name Role Phone Hillary Bennett PA-C Primary Care Provider Encounter Details Date Type Department Care Team (Late st Contact Info) Description 04/26/2024 Documentation Only [facility], [address] [place] [address] Stephanie Funes [address] [place] [address] Social History Tobacco Use Types [...] on filedocumented in this encounter Care Teams Transport Manager Relationship Specialty Start Date End Date Hillary Bennett PA-C [address] [place] [address] PCP - General Physician Executive Assistant To General Counsel 11/01/20 documented as of this encounter
== END 2024-06-15 10:07 | disposition home or self-care (01) ==
LOC: HO.LAB 10:06
PROVIDERS: PCP Physician Assistant Medical; Visit Provider Urology
DX: R97.20 Elevated prostate specific antigen [PSA] (principal); N39.0 Urinary tract infection, site not specified
CPT/HCPCS: 51798; 81003; 87086

== ENCOUNTER 2024-06-15 10:06 | Outpatient (AMB) | payer OTHER, SELFPAY ==
--- NOTE | 2024-06-15 10:35 | MHC.OFFVIS ---
Intake Visit Reasons: Urethral dilation/PSA Intake Note: Patient is Present for Uretheral Dialation/PSA Urology Medication:Tamsulosin Antibiotic Allergies: None Blood Thinners: Windy Power System Electrical Engineer Required: Yes Allergies No Known Allergies Allergy (Verified 06/15/24 10:52) HPI Comments Details: 06/15/24--Urethral dilation. History of Present Illness The patient is a 74-year-old male presenting with urinary tract obstruction and elevated PSA. He experienced a blockage necessitating catheterization about a week ago. 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 The patient is currently prescribed tamsulosin and finasteride for prostate management. Additionally, the PSA readings have escalated from 1.11 to 9.00, suggestive of possible infection or prostate ailment. The patient also reports penile pruritus, likely related to the urinary condition or an infection. Urinary Symptoms Review - Blockage requiring catheterization about a week ago - Current medication includes tamsulosin and finasteride - Increased PSA from 1.11 to 9.00 in one year - Pruritus at the tip of the penis Results - Labs: PSA last year 1.11, current PSA 9.00 Discussion Notes I discussed with the patient the possibility of continuing or adjusting management for his obstructive uropathy by potentially redilating in four months. The elevated PSA was examined, noting the unusual increase warranting consideration of infection. Discussed initiating antibiotics pending urine test results to address the potential infection. Pruritus management includes topical cream application. I advised sending urine out for analysis to confirm infection, with plans to repeat blood work within three months. The patient understands follow-up appointments and adjustments based on future urine results, and medications will be sent to a local pharmacy for ease of access. Plan The plan includes addressing urinary tract obstruction through planned dilation in four months, alongside current medications tamsulosin and finasteride. Elevated PSA levels require antibiotic initiation pending urine results, and reviewing PSA in three months. Penile pruritus will be managed with a topical cream. Medications will be dispensed at the patient's preferred pharmacy, with future management adjusted per diagnostic and symptom outcomes all understood and agreed by the patient. Patient Instructions - Take antibiotics as prescribed for potential infection - Apply prescribed cream for itchiness at the tip of the penis - Continue taking tamsulosin and finasteride as directed - Expect follow-up urine and blood tests as discussed - Results will guide adjustments in treatment if necessary - Medication will be sent to your preferred pharmacy Patient was informed and verbally consented to the use of an ambient scribe for clinic note documentation during this visit. 01/12/24-- FU-urethral dilation. Bryan is followed for meatal stenosis. Here for urethral dilation. He is complaining of itching around the glans. He is complaining of pain with urination. Urethral dilation performed starting with a 14 Anguillan catheter and sequentially dilated up to a 20 Anguillan sound. He is also on tamsulosin and finasteride for BPH. Will continue urethral dilations. Review of chart: 10/23/23-Bryan is followed for meatal stenosis. Here for urethral dilation. He is complaining of itching around the glans. He is complaining of pain with urination. Urethral dilation performed starting with a 10 Anguillan catheter and sequentially dilated up to a 22 Anguillan sound. He is instructed to use a 16 Anguillan catheter to dilate the meatus Friday. 06/23/23--Bryan is a 72-year-old male who presents today(Certified azeri interpretor present) to the office for follow up with PSA screening. He has h/o meatal stenosis and is instructed on CIC once a day. He is also on tamsulosin and proscar daily for BPH. He was last seen on 01/22/23 for office urethral dilation. He states he is urinating well. He has not been cath'ing daily. Urethal dilation performed, and the patient tolerated well. Follow up in 4-6 months for repeat office dilation. 04/24/23--Bryan is a 72-year-old male who presents today(Certified azeri interpretor present) to the office for follow up with PSA screening. He has h/o meatal stenosis and is instructed on CIC once a day. He is also on tamsulosin and proscar daily for BPH. He was last seen on 01/22/23 for office urethral dilation. He states he is urinating well. He is cath'ing once daily. He denies dysuria. UA- 1+ leuks, trace blood. I reviewed PSA - 04/14/23--1.11 ng/mL. 01/22/2023?Bryan is a 72 year old male who is [place] speaking, Certified interpreter translator present. He has LUTS of weak stream, he has been treated for fossae navicularis meatal stenosis with periodic dilations and instructed on CIC. He is on tamsulosin. Urethral dilation today PROCEDURE: Urethral Dilation SURGEON: Silke Sharif MD ANESTHESIA:Local Indications: Fossae Navicularis meatal stenosis Details of procedure: Consent obtained. 2% lidocaine urojet was passed transurethrally. Antibiotics PO administered. Forest sounds starting with 16 fr sequentially up to 20 fr used. Minimal bleeding noted otherwise the patient tolerated the procedure well. Complications: None Review of Results-- Retroperitoneum US results from 09/03/2022 revealed no nephrolithiasis or hydronephrosis, and enlarged prostate. Office cystoscopy-- 09/04/2022 -- cystoscopy findings bulbous urethra: normal; bladder: no suspicious bladder lesions noted. 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 Stage 3 chronic kidney disease Slow transit constipation Chronic back pain Colitis Urethral meatal stenosis Male erectile disorder Primary insomnia Depression AA (alcohol abuse) Cocaine abuse Type 2 diabetes mellitus Hypothyroidism Morbid obesity Hyperlipemia Phimosis Organic impotence Benign prostatic hyperplasia Surgical History Hx of colonoscopy History of circumcision Family History Father Medical history unknown Mother Medical history unknown Social History Alcohol intake: never Patient Tobacco Use Status: Never used Tobacco Office Procedures Post Void Residual Post Residual Void Post Void Residual (PVR): 0 [id number] Void Residual by ultrasound Generic Document Section Details: Patient given macrobid 100mg capsule as well as pyridium 100mg tablet prior to procedure. Patient prepped with lidocaine urojet. Dr. Nettles to room for procedure, additional lidocaine urojet in room as well. Results AMB Urinalysis, Automated UA Leukoctes 15 Nahomy/uL Last Edit by Codie Germain on 06/15/24 11:59 UA Nitrite Negative Last Edit by Codie Germain on 06/15/24 11:59 UA Urobilinogen 1 mg/dL Last Edit by Codie Germain on 06/15/24 11:59 UA Protein 30 mg/dL Last Edit by Codie Geramin on 06/15/24 11:59 UA pH 5.5 Last Edit by Codie Germain on 06/15/24 11:59 UA Blood 25 Alexander/uL Last Edit by Codie Germain on 06/15/24 11:59 UA Specific [place] 1.025 Last Edit by Codie Germain on 06/15/24 11:59 UA Ketone Positive Last Edit by Codie Germain on 06/15/24 11:59 UA Bilirubin 2 mg/dL Last Edit by Codie Germain on 06/15/24 11:59 UA Glucose 0 mg/dL Last Edit by Codie Germain on 06/15/24 11:59 Assessment & Plan Assessment & Plan (1) Elevated PSA: Code(s): R97.20 - Elevated prostate specific antigen [PSA] Category: Medical Orders: Orders Urethral Dilation Today N35.919 - Unspecified urethral stricture, male, unspecified site, R39.12 - Poor urinary stream Urine Culture Today N39.0 - Urinary tract infection, site not specified AMB Urinalysis Automated Today Z13.9 - Encounter for screening, unspecified PSA,Total (Free>4and<10) 3 Months R97.20 - Elevated prostate specific antigen [PSA] Medications: New nitrofurantoin monohyd/m-cryst 100 mg (Macrobid) must administer with a meal/food 100 mg PO Q12H 14 caps 0RF 7 days Coding Diagnoses Elevated PSA R97.20 CPT Codes Post Residual Void - PVR CPT Code: 54967-[id number] Void Residual by ultrasound ([id number])
--- OUTSIDE RECORDS SUMMARY | 2024-06-15 11:30 | XMS_ITS | Encounter Summary ---
Author Organization [facility] Address [address] [place] [address] Care Team Providers Care Milling Machinist Name Role Phone Phil Le MD Primary Care Provider [phone] Encounter Details Date Type Department Care Team (Late st Contact Info) Description 11/07/2022 Interim Notes [facility] [address] [place] [address] Yulia Grier [address] [place] [address] Social History Tobacco Use Types Packs/Day Years [...] documented as of this encounter Care Teams Milling Machinist Relationship Specialty Start Date End Date Phil Le MD [address] [place] [address] PCP - General Internal Medicine 04/06/24 documented as of this encounter
--- OUTSIDE RECORDS SUMMARY | 2024-06-15 11:31 | XMS_ITS | Encounter Summary ---
Author Organization [facility], Address [address] [place] [address] Phone Care Team Providers Care Community Chest Officer Name Role Phone Hillary Bennett PA-C Primary Care Provider Encounter Details Date Type Department Care Team (Late st Contact Info) Description 04/26/2024 Documentation Only [facility], [address] [place] [address] Stephanie Funes [address] [place] [address] Social History Tobacco Use Types [...] on filedocumented in this encounter Care Teams Community Chest Officer Relationship Specialty Start Date End Date Hillary Bennett PA-C [address] [place] [address] PCP - General Physician Design Eng 11/01/20 documented as of this encounter
--- OUTSIDE RECORDS SUMMARY | 2024-06-15 11:31 | XMS_ITS | Encounter Summary ---
Author Organization [facility] [place], Address [address] [address] Phone Care Team Providers Care Senior Java Software Engineer Name Role Phone Hillary Bennett PA-C Primary Care Provider Encounter Details Date Type Department Care Team (Late st Contact Info) Description 08/25/2023 Documentation Only [facility], [address] [place] [address] Stephanie Funes [address] [place] [address] Social History Tobacco Use Types [...] on filedocumented in this encounter Care Teams Senior Java Software Engineer Relationship Specialty Start Date End Date Hillary Bennett PA-C [address] [place] [address] PCP - General Physician It Application Support Analyst 11/01/20 documented as of this encounter
--- OUTSIDE RECORDS SUMMARY | 2024-06-15 11:31 | XMS_ITS | Encounter Summary ---
Author Organization [facility] [place], Address [address] [place] [address] Phone Care Team Providers Care Civil Drafting Technician Name Role Phone Hillary Bennett PA-C Primary Care Provider Encounter Details Date Type Department Care Team (Late st Contact Info) Description 08/25/2023 Documentation Only [facility] [place], [address] [place] [address] Stephanie Funes [address] [place] [address] Social History Tobacco Use Types [...] on filedocumented in this encounter Care Teams Civil Drafting Technician Relationship Specialty Start Date End Date Hillary Bennett PA-C [address] [place] [address] PCP - General Physician Meat Sales And Storage Manager 11/01/20 documented as of this encounter
--- OUTSIDE RECORDS SUMMARY | 2024-06-15 11:31 | XMS_ITS | Data Portability ---
Author Organization [employer] 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 I provided real-time medical direction for this [...] findings on EKG; activate EMS and refer [facility] [email or web address] Not available 06/02/2024 21:09:11 Plan of Treatment Reminders Order Date Submit Date Provider Last Modified By Organization Details Last Modified Time Details Appointments None recorded. Lab BMP, serum or plasma 2023 024 [email or web address] [facility], [address] [place] [address], [id number] 4 18:50:33 urinalysis, dipstick [address], [phone] 4 19:07:57 rapid strep group A, throat [address], [phone] 4 23:02:20 Referral None recorded. Procedures None recorded. Surgeries None recorded. Imaging electrocard iogram [address], [id number] 5 18:22:23 Medication Orders furosemide 10 mg/mL injection solution 2023 024 [email or web address] Not available 4 18:53:17 Augmentin 875 mg-125 mg tablet 2023 024 gbaci Not available 4 18:54:01 Lasix 20 mg tablet 2023 024 [facility] #[id number], [address], [place], [id number], 4 19:01:55 Augmentin 875 mg-125 mg tablet 2023 024 [facility] #[id number], [address], [place], [id number], 4 19:01:54 Lactobac 47-B.animal ,bifid-S.th ermo 10 billion cell-FOS 100 mg capsule 2023 024 [facility] #[id number], [address], [place], [id number], 4 19:01:53 Patient TargetsNo targets recorded. Patient InstructionsNo instructions recorded. Reason for Referral None Reported. Results Created Date Observation Date Name Description Value Unit Range Abnormal Flag Note LastModifiedBy Organization Detail LastModifiedTime 03/15/19 24 03/15/2023 rapid strep group A, throa t Strep negati ve Not Available Main - Inst ed [address] [place] [address], [id number] 03/15/2023 23:02:09 03/15/19 24 03/15/2023 urina lysis , dipst ick Leukocytes negati ve Not Available Main - [facility] [address] [place] [address], [phone] 03/15/2023 19:06:50 03/15/19 24 03/15/2023 urina lysis , dipst ick Nitrite negati ve Not Available Main - [facility] [address] [place] [address], [phone] 03/15/2023 19:06:50 03/15/19 24 03/15/2023 urina lysis , dipst ick Urobilinogen negati ve Not Available Main - Inst [facility] [address] [place] [address], [phone] 03/15/2023 19:06:50 03/15/19 24 03/15/2023 urina lysis , dipst ick Protein Positi ve Not Available Main - [facility] [address] [place] [address], [phone] 03/15/2023 19:06:50 03/15/19 24 03/15/2023 urina lysis , dipst ick pH 6.0 Not Available Main - Ins liss [address] [place] [address], [phone] 03/15/2023 19:06:50 03/15/19 24 03/15/2023 urina lysis , dipst ick Blood positi ve Not Available Main - Inst [facility] [address] [place] [address], [phone] 03/15/2023 19:06:50 03/15/19 24 03/15/2023 urina lysis , dipst ick Specific Garnett 1.010 Not Available Main - [facility] [address] [place] [address], [phone] 03/15/2023 19:06:50 03/15/19 24 03/15/2023 urina lysis , dipst ick Ketone Negati ve Not Available Main - [facility] [address] [place] [address], [phone] 03/15/2023 19:06:50 03/15/19 24 03/15/2023 urina lysis , dipst ick Bilirubin Negati ve Not Available Main - [facility] [address] [place] [address], [address] [place] [address] 03/15/2023 19:06:50 03/15/19 24 03/15/2023 urina lysis , dipst ick Glucose Negati ve Not Available Main - [facility] [address] [place] [address], [address] [place] [address] 03/15/2023 19:06:50 03/15/19 24 03/15/2023 urina lysis , dipst ick Appearance Clear Not Available Main - [facility] [address] [place] [address], [address] [place] [address] 03/15/2023 19:06:50 03/15/19 24 03/15/2023 urina lysis , dipst ick Color yellow Not Available Main - Ins [address], [address] [place] [address] 03/15/2023 19:06:50 03/15/19 24 03/15/2023 BMP, serum or plasm a BUN 14 Not Available Main - Ins [address], [address] [place] [address] 03/15/2023 18:32:34 03/15/19 24 03/15/2023 BMP, serum or plasm a Ca 1.04 Not Available Main - Ins [address], [address] [place] [address] 03/15/2023 18:32:34 03/15/19 24 03/15/2023 BMP, serum or plasm a CI- 101 Not Available Main - Ins [address], [address] [place] [address] 03/15/2023 18:32:34 03/15/19 24 03/15/2023 BMP, serum or plasm a CRE 1.14 Not Available Main - Ins [address], [address] [place] [address] 03/15/2023 18:32:34 03/15/19 24 03/15/2023 BMP, serum or plasm a GLU 156 Not Available Main - Ins [address], [address] [place] [address] 03/15/2023 18:32:34 03/15/19 24 03/15/2023 BMP, serum or plasm a K+ 4.9 Not Available Main - Ins [address], [address] [place] [address] 03/15/2023 18:32:34 03/15/19 24 03/15/2023 BMP, serum or plasm a Na+ 136 Not Available Main - Ins [address], [address] 03/15/2023 18:32:34 03/15/19 24 03/15/2023 BMP, serum or plasm a tCO2 29 Not Available Main - Ins [address], [address] 03/15/2023 18:32:34 06/03/19 25 06/02/2024 elect shreya diogr am No observ ation record ed. [facility] [address] [place] [address], [phone] 06/02/2024 21:31:14 Result Notes None recorded. Procedures Surgical History None recorded. Imaging Results Imaging Date Name Status LastModified by Organization Details LastModified Time 06/02/2024 electrocardiogram completed [facility] [address] [place] [address], [phone] 06/02/2024 21:31:14 Procedure Notes None recorded. Medical [...] % 120 mm[Hg] 71 mm[Hg] Not Available [employer] [facility] [employer] 4 18:23:42 Date Recorded Body temperature Body height Oxygen saturation Oxygen saturation in Arterial blood by Pulse oximetry Respiratory rate Heart rate Body weight Systolic blood pressure Diastolic blood pressure Provider Name and Address Organization Details Last Updated DateTime 4 98.4 [degF] 157.48 cm 94 % 94 % 14 /min 78 /min 99321.4 g 110 mm[Hg] 72 mm[Hg] Not Available [facility] [employer] 4 18:59:20 Date Recorded Respiratory rate Heart rate Body temperature Oxygen saturation Oxygen saturation in Arterial blood by Pulse oximetry Systolic blood pressure Diastolic blood pressure Provider Name and Address Organization Details Last Updated DateTime 5 16 /min 68 /min 98.6 [degF] 96 % 96 % 176 mm[Hg] 76 mm[Hg] Not Available [facility] [employer] 5 21:08:31 Social History None recorded. Functional Status None recorded. Mental Status None recorded. Family History Nothing Reported. Medical History No medical history recorded. Past Encounters Encounter ID Performer Location Encounter Start Date Encounter Closed Date Diagnosis/Indication Diagnosis SNOMED-CT Code Diagnosis ICD10 Code Diagnosis Note [id number] Charisse Beltrán MD Main - [address] [phone] 11/12/2022 17:59:46 11/12/2022 23:44:04 Left side sciatica 4457925228 15966 M54.32 [id number] HARPER WATT MD Main - [address] [phone] 03/15/2023 18:23:37 03/16/2023 13:34:49 Dyspnea on exertion 59148923 R06.09 Evaluation in the field was performed by my welding machine operator resistance colleague, as noted above, I provided real-time [...] ( pt received the first dose by welding machine operator resistance ) . Side effects of the Augmentin [...] dizziness, fever, chills or any other concerns. [id number] Jatin Machado MD Main - [facility] [address] [place] [phone] 03/25/2023 18:59:09 03/25/2023 21:56:49 Alteration in heart rate 142559152 R00.9 Patient was recently discharged from the [...] and family that we cannot rule out [place] in the home, even though there is a low suspicion. Patient and family declined ED. Educated on how to check a pulse. Plan to monitor heart rate at home and follow up with PCP. [id number] Robyn Osborne MD Main - [facility] [address] [place] [phone] 06/02/2024 21:08:21 06/03/2024 14:57:48 Chest discomfort 576990864 R07.89 Health Concerns Section Related Observation LastModified by Organization Detai ls LastModified Time None Recorded Concern Status LastModified by Organization Details LastModified Time None Recorded Advance Directives Directive None Recorded Payers Encounter Date Sequence Insurance Name Policy Number Policy Vogel Covered Member ID Vogel Member ID Guarantor Name 11/12/2022 1 [facility] - DOS ON OR AFTER 2022 - DUAL ELIGIBLE - HALFWAY OPTIONS AND ONE CARE (MEDICARE REPLACEMENT/AD VANTAGE - HMO) Bryan Mtz [id number] Bryan Mtz 03/15/2023 1 [facility] DOS ON OR AFTER 2022 - DUAL ELIGIBLE - HALFWAY OPTIONS AND ONE CARE (MEDICARE REPLACEMENT/AD VANTAGE - HMO) Bryan Mtz [id number] Bryan Mtz 03/25/2023 1 [facility] DOS ON OR AFTER 2022 - DUAL ELIGIBLE - HALFWAY OPTIONS AND ONE CARE (MEDICARE REPLACEMENT/AD VANTAGE - HMO) Bryan Mtz [id number] Bryan Mtz 06/02/2024 1 [facility] DOS ON OR AFTER 2022 - DUAL ELIGIBLE - HALFWAY OPTIONS AND ONE CARE (MEDICARE REPLACEMENT/AD VANTAGE - HMO) Bryan Mtz [id number] Bryan Mtz Notes Date Note Type Note [...] ................... ................... ................... ................... ................... ................... ........ Maintenance Department Technician Note From Praveen Bañuelos: Pt reports pain [...] ................... ........ Disposition: Fulfilled Charisse Beltrán MD [address] [place] [address],[address], [place], [phone], [place] 11/12/2022 19:21:43 03/15/2023 text/html CRC Nurse Triage [...] ................... ................... ................... ................... ................... ................... ........ Maintenance Department Technician Note From Asif Hdz: Pt reports that he has been feeling unwell for the past 2 weeks states on Friday was seen at a [facility] care had a X-ray done and was [...] vs taken LS diminished. Strep test done, [facility] was called POC UA and BMP done. IV was started pt given 20mg of lasix and augmentin was advised that if symptoms don? t improve or get worse to go to ED and cleared. ................... ................... ................... ................... ................... ................... ................... ........ Disposition: Fulfilled HARPER WATT MD [address] [place] [address],[address], [place], [phone], [place] 03/15/2023 23:13:50 03/25/2023 text/html CRC Nurse Triage [...] ................... ................... ................... ................... ................... ................... ........ Maintenance Department Technician Note From Ash Villalobos: Pt caox3 complains [...] rate now normal with no palpitations noted. [facility] advises pt to be seen for high [...] ................... ................... ........ Disposition: Monserrat Machado MD [address] [place] [address],[address], [place], [phone], [place] 03/25/2023 20:13:45 06/02/2024 text/html CRC Nurse Triage [...] signs of when to seek emergency care. Maintenance Department Technician Organization Information for [employer] Legal Name: [employer] Address: [address] [place] [address], [place] Hand: Gopal Callejas MD CLIA No.: [id number] Maintenance Department Technician POC Test Results from [facility] EKG (20:53:55) EKG test performed. Attachments uploaded as part of this test result can be found under Documents section. ................... ................... ................... ................... ................... ................... ................... ........ Maintenance Department Technician Note From Breezy Vaughan: Dispatched to the [...] of vitals. 12 lead EKG. Results uploaded. [facility] consulted. Pt advised Pt to have a further work up in the ED. Pt agreeable. ED visible from Pts front door, family drove Pt to ED. Red flags discussed. ALL times are approx. ................... ................... ................... ................... ................... ................... ................... ........ [facility] Consulted: Robyn Osborne ................... ................... ................... ................... ................... ................... ................... ........ Disposition: Fulfilled Robyn Osborne MD [address] [place] [address],[address] [facility], [place], [phone], CRYSTAL ANDERSEN 06/03/2024 10:06:42
--- OUTSIDE RECORDS SUMMARY | 2024-06-15 11:31 | XMS_ITS | Encounter Summary ---
Author Organization [facility], Address [address] [place] [address] Phone Care Team Providers Care Can Pusher Name Role Phone Hillary Bennett PA-C Primary Care Provider [phone] Encounter Details Date Type Department Care Team (Late st Contact Info) Description 04/26/2024 Documentation Only [facility], [address] [place] [address] Stephanie Funes [address] [place] [address] Social History Tobacco Use Types [...] on filedocumented in this encounter Care Teams Can Pusher Relationship Specialty Start Date End Date Hillary Bennett PA-C [address] [place] [address] PCP - General Physician Internist 11/01/20 documented as of this encounter
--- OUTSIDE RECORDS SUMMARY | 2024-06-15 11:31 | XMS_ITS | Clinical Summary ---
Author Organization [facility] Address [address] [place] [address] Care Team Providers Care Correspondence School Teacher Name Role Phone Phil Le MD Primary Care Provider [phone] Source Comments PLEASE NOTE, if this patient [...] tabletIndication s:Diabetes mellitus type 2 in nonobese ([facility]) TAKE 1 TABLET BY MOUTH ONCE A [...] 2 diabetes mellitus with hyperglycemia, unspecified whether usp insulin use ([facility]) USE DIRECTED TWO TIMES A DAY TO CHECK BG 100 Each 11 2023 Active blood sugar diagnostic (FREESTYLE LITE STRIPS) stripsIndication s:Type 2 diabetes mellitus with hyperglycemia, unspecified whether long filler cigar roller machine insulin use ([facility]) USE DIRECTED TWO TIMES A DAY 100 Each 11 03/04/ 2024 Active UNIFINE PENTIPS 31 gauge x 06/25 ndleIndications: Type 2 diabetes mellitus with hyperglycemia, unspecified whether long filler cigar roller machine insulin use ([facility]) USE DIRECTED TWO TIMES A DAY FOR INSULIN ADMINISTRATION 100 Each 2023 Active metoprolol succinate XL (TOPROL-XL) 25 mg 24 hr tabletIndication s:Heart failure with reduced ejection fraction ([facility]),NSTEMI (non-ST elevated myocardial infarction) ([facility]) TAKE ONE TABLET BY MOUTH [...] 1 2023 Active JANUMET XR 100-1,000 mg [id number]: Type 2 diabetes mellitus with hyperglycemia, unspecified whether usp insulin use ([facility]) TAKE ONE TABLET BY MOUTH EVERY DAY ^1R1 30 Tablet 2023 Active LANTUS SOLOSTAR U-100 INSULIN 100 unit/mL (3 mL) penIndications:T ype 2 diabetes mellitus with hyperglycemia, unspecified whether long filler cigar roller machine insulin use ([facility]) INJECT 40 UNITS UNDER THE [...] alcohol swabsIndications :DM2 (diabetes mellitus, type 2) ([facility]) USE THREE TIMES A DAY (BULK) 100 Each 5 2024 Active polyethylene glycol, PEG, 3350 (GLYCOLAX) 17 gram/dose powderIndication s:Slow transit constipation TAKE ONE CAPFUL MIXED WITH 8 OZ OF FLUID AND DRINK BY MOUTH ONCE DAILY (BULK) 510 g 2 2024 Active ELIQUIS 5 mg tabIndications:A trial fibrillation, unspecified type ([facility]) TAKE ONE TABLET BY MOUTH TWICE A DAY ^1R1,1R4 60 Tablet 5 2024 Active lanolin-mineral oil (THERA-DERM) lotion APPLY TOPICALLY TO THE AFFECTED AREA(S) TWO TIMES A DAY (BULK) 236 mL 1 2024 Active ENTRESTO 24-26 mg tabIndications:H eart failure with reduced ejection fraction ([facility]) TAKE ONE TABLET BY MOUTH TWICE A [...] Date NSTEMI (non-ST elevated myocardial infarction) ( [facility]) 08/01/2022 Atrial fibrillation ([facility]) 08/01/2022 Heart failure with reduced ejection fraction ([facility]) 08/01/2022 Neuropathy 07/16/2022 07/16/2022 Stage 3 chronic kidney disease ([facility]) 022 Chronic right-sided low back pain without sciati ca 08/06/2019 Slow transit constipation 08/06/2019 JUSTEN on CPAP 01/06/2018 Overview (01/06/2018): Diagnosis - 2013 H/O colonoscopy 03/07/2016 Overview (03/07/2016): Colonoscopy done at [facility] 05/20/2011 - impression internal hemorrhoids Otherwise normal colonoscopy to the terminal ileum- repeat recommendations 10 yrs - due 2021 Colitis 08/14/2015 Overview (08/14/2015): Se[facility] in [facility] and [facility] ,CT abdomen consistent with colitis-tx with Flagyl and Levaquin Neuropathy, diabetic ([facility]) 01/19/2014 Phimosis 06/28/2013 Chronic LBP 01/15/2013 Hematuria 01/15/2013 Vitamin D deficiency 12/04/2012 Varicose vein of leg 12/04/2012 DM type 2 (diabetes mellitus, type 2) ([facility]) 09/29/2012 DM type 2 with diabetic peripheral neuropathy ([facility]) Obesity Essential hypertension Insomnia Depression Mixed hyperlipidemia Immunizations Immunization Administration Dates Next Due Flu, High Dose, 65y+, Fluzon e High Dose 12/09/2022,10/31/2021,12/15/2019 Flu, Preservative Free 11/06/2018 HEP A-HEP B (TWINRIX) 11/14/2022,07/11/2022 Hep B, Adult/Adol (ENERGIX/RECOMBIVAX) 9 INFLUENZA [...] CONJUGATE PCV 13 09/15/2015 PNEUMOCOCCAL POLYSACCHARIDE PPV23 (Pneumovax 23) 02/22/2020,12/15/2019(Deferred: Out of Stock),01/28/2012 TDAP 09/15/2015,03/12/2014 Tetanus Toxoid, Absorbed 09/29/2012 ZOSTER VACCINE, RECOMBINANT (SHINGRIX) ,12/15/2019 Family History Medical History Relation Name Comments [...] Additional history exists Diabetes HbA1c 02/05/2023 11/06/2022, 02/2022, 12/26/2021, Additional history exists Depression Monitoring 03/11/2023 12/09/2022 , 11/06/2022, 07/16/2022, Additional history exists Imm-Hepatitis A (3 of 3 - He p A Twinrix risk 3-dose series) 04/15/2023 11/14/2022, 07/11/2022 Dental Prophy 07/04/2023 01/01/2023, 06/10, 12/28/2021, Additional history exists HIV Screening 07/12/2023 07/11/2022 Lipid Screening 07/12/2023 07/11/2022, 08/2021, 04/25/2021, Additional history exists Syphilis Screening 07/12/2023 07/11/2022 Medicare Annual Wellness Visit 07/17/2023 0 07/16/2022, 02/22/2020, 09/15/2015 [id number] ( season) 2023 07/11/2022, 06/14/2020, 05/17/2020 Imm-Influenza (#1) 2023 12/09/2022, 0 10/31/2021, 12/15/2019, Additional history exists Diabetes Foot Exam 11/07/2023 11/06/2022 Dental BW 01/04/2024 01/01/2023, 06/10, 12/28/2021, Additional history exists Dental Examination 01/04/2024 01/01/2023, 0 06/27/2022, 12/28/2021, Additional history exists Dental Perio Charting 01/04/2024 01/01/2023 , 06/27/2022, 12/28/2021 Alcohol and Drug Screen 02/11/2024 07/12/19, 10/31/2021, 04/23/2021, Additional history exists Serum Creatinine 02/28/2024 02/27/2023, , 07/11/2022, Additional history exists Urine Albumin Creatinine Rat io Screening 02/28/2024 02/27/2023, 07/11/2022, 06/07/2021, Additional history exists Imm-DTaP/Tdap/Td (3 - Td or Tdap) 09/14/2025 016, 03/12/2014 Hepatitis C Screening Completed 04/10/2018 Imm-Pneumococcal 65+ Completed 02/22/2020, 09/15/2015, 01/28/2012 Imm-Zoster, Recombinant Completed 02/22/2020, 12/14 Imm-Hepatitis B Completed 11/14/2022, 0602/2022, 06/05/2018 Procedures Procedure Name Priority Date/Time Associated [...] EST Routine general medical examination at a [facility] facility COLONOSCOPY Routine 05/20/2011 from Last 3 Months or Most Recently Relevant to Health Maintenance Results * (ABNORMAL) HGBA1C W/MPG (11/06/2022 11:56 AM EDT) HEMOGLOBIN A1C 5.8(H) <5.7 % of total Hgb [facility] Comment: For someone without known diabetes, a [...] children. MEAN PLASMA GLUCOSE 129 mg/dL (calc) [facility] 11/06/2022 11:5 6 AM EDT 11/06/2022 11:57 AM EDT us Kristen LopezD LAB - BLOOD DRAW Edited Res ult - Final [employer] [address] [place] [id number], [facility] [address] [place] [address] * (ABNORMAL) BASIC METABOLIC PANEL CALCIUM TOTAL (08/02/2022 10:43 AM EDT) GLUCOSE 118(H) 65 - 99 mg/dL [facility] Comment: ?Fasting reference interval For someone without known diabetes, a glucose value between 100 and 125 mg/dL is consistent with prediabetes and should be confirmed with a follow-up test. UREA NITROGEN (BUN) 17 7 - 25 mg/dL [facility] CREATININE (blood) 1.06 0.70 - 1.28 mg/dL [facility] EGFR 74 > OR = 60 mL/min/1 .73m2 [facility] Comment: The eGFR is based on the CKD-EPI 2020 equation. To calculate the new eGFR from a previous Creatinine or Cystatin C result, go to https://www.kidney.org/professionals/ kdoqi/gfr%5Fcalculator BUN/CREATININE RATIO NOT APPLICABLE [facility] SODIUM 136 135 - 146 mmol/L [facility] POTASSIUM 4.8 3.5 - 5.3 mmol/L [facility] CHLORIDE 99 98 - 110 mmol/L [facility] CARBON DIOXIDE 31 20 - 32 mmol/L [facility] CALCIUM 10.0 8.6 - 10.3 mg/dL [facility] Blood Blood / Unknown 08/02/2022 1 0:43 AM EDT 08/02/2022 10:44 AM EDT us Lokesh Allen PA-C LAB - BLOOD DRAW Final Resul t [facility] [address] [address], [facility] [address] [place] [address] * HIV 1/2 AG & AB W/RFLX (4TH GEN) (07/11/2022 11:02 AM EDT) Pathologist [facility] HIV AG/AB, 4TH GEN NON-REAC TIVE NON-REAC TIVE [facility] Comment: HIV-1 antigen and HIV-1/HIV-2 antibodies were [...] ?? For additional information please refer to http://education.Contests4Causes/faq/HCH044 (This link is being provided for informational/ educational purposes only.) The performance of this assay has not been clinically validated in patients less than 2 years old. Blood Blood / Unknown 07/11/2022 1 1:02 AM EDT 07/11/2022 11:03 AM EDT Narrative [employer] - 07/15/2022 1:23 PM EDT FASTING:NO us Hillary Bennett PA-C LAB - BLOOD DRAW Final Resul t Performing Organization Address [facility] Co de Phone Number [employer] [address] [place] [phone], [employer] [address] [address] * RPR W/RFLX TITER+FTA+CONF (07/11/2022 11:02 AM EDT) RPR (DX) W/REFL TITER AND CONFIRMATORY TESTING NON-REACT LEONCIO NON-REACT LEONCIO [facility] Blood Blood / Unknown 07/11/2022 1 1:02 AM EDT 07/11/2022 11:03 AM EDT Narrative [employer] - 07/15/2022 1:23 PM EDT FASTING:NO us Hillary Bennett PA-C LAB - BLOOD DRAW Edited Resu lt - Final Performing Organization Address City/[facility]/ZIP Co de Phone Number [employer] [address] [place] [phone], [employer] [address] [address] * MICROALBUMIN/CREATININE RATIO, URINE, RANDOM (07/11/2022 11:02 AM EDT) CREATININE, RANDOM URINE 95 20 - 320 mg/dL [facility] MICROALBUMIN 0.3 mg/dL [email or web address] [facility] Comment: Reference Range Not established MICROALBUMIN/CREA TININE RATIO, RANDOM URINE 3 <30 mcg/mg creat [facility] Comment: The ADA defines abnormalities in albumin [...] AM EDT 07/11/2022 11:03 AM EDT Narrative [employer] [facility] - 07/15/2022 1:23 PM EDT FASTING:NO Hillary Bennett PA-C LAB - NO BLOOD DRAW Final Re sult [employer] [address] [address], [facility] [address] [address] * (ABNORMAL) LIPID PANEL (07/11/2022 11:02 AM EDT) Pathologist [facility] CHOLESTEROL, TOTAL 116 <200 mg/dL [facility] HDL CHOLESTEROL 33(L) > OR = 40 mg/dL [facility] TRIGLYCERIDES 138 <150 mg/dL [facility] LDL-CHOLESTEROL 61 99 mg/dL (calc) [facility] Comment: Reference range: <100 Desirable range <100 mg/dL for primary prevention; ?? <70 mg/dL for patients with CHD or diabetic patients with > or = 2 CHD risk factors. LDL-C is now calculated using the Bebo calculation, which is a validated novel method providing better accuracy than the Friedewald equation in the estimation of LDL-C. Francisco MURO et al. STEVEN. 2013;310(19): 9647-5611 (http://education.IDRI (Infectious Disease Research Institute).Book&Table/faq/CJC049) CHOL/HDLC RATIO 3.5 <5.0 (calc) [facility] NON-HDL CHOLESTEROL 83 <130 mg/dL (calc) [facility] Comment: For patients with diabetes plus 1 major ASCVD risk factor, treating to a non-HDL-C goal of <100 mg/dL (LDL-C of <70 mg/dL) is considered a therapeutic option. Blood Blood / Unknown 07/11/2022 1 1:02 AM EDT 07/11/2022 11:03 AM EDT Narrative [employer] [facility] - 07/15/2022 1:23 PM EDT FASTING:NO Primedicmay Bennett PA-C LAB - BLOOD DRAW Final Resul t Performing Organization Address [facility] de Phone Number [facility] [address] [address], [facility] [address] [address] * (ABNORMAL) THYROID PANEL WITH TSH (11/16/2021 1:25 PM EDT) TSH 1.15 0.40 - 4.50 mIU/L [facility] T-3 UPTAKE 29 22 - 35 % [employer] [facility] T-4 (THYROXINE), TOTAL 10.9(H) 4.9 - 10.5 mcg/dL [facility] FREE T4 INDEX (T7) 3.2 1.4 - 3.8 [employer] [facility] Blood Blood / Unknown 11/16/2021 1 :25 PM EDT 11/16/2021 1:25 PM EDT Narrative [employer] [facility] - 11/20/2021 9:07 PM EDT FASTING:YES [employer] Sabrina العلي[employer] LAB - BLOOD DRAW Final Resul t Performing Organization Address [facility] Co de Phone Number [facility] [address] [address], [employer] [address] [address] * (ABNORMAL) HEPATITIS A,B,C PANEL (04/10/2018 10:10 AM EST) HEPATITIS B SURFACE ANTIBODY NEGATIVE NEGATIVE [facility] HEPATITIS B SURFACE ANTIGEN NEGATIVE NEGATIVE [facility] Comment: Over the counter supplements containing high doses of biotin may interfere with this assay. ??If interference is suspected, patients shoud be retested after refraining from biotin supplements for 72 hours. HEPATITIS C VIRUS DIAGNOSTIC NEGATIVE NEGATIVE [facility] HEPATITIS B CORE ANTIBODY NEGATIVE NEGATIVE [facility] HEPATITIS A ANTIBODY TOTAL POSITIVE(A) NEGATIVE [facility] Comment: Over the counter supplements containing high doses of biotin may interfere with this assay. ??If interference is suspected, patients shoud be retested after refraining from biotin supplements for 72 hours. Blood specimen (specimen) Blood / Unknown 04/10/2018 10:10 AM EST 04/10/2018 10:51 AM EST Narrative [facility] - 04/10/2018 1:23 PM EST [employer], [place] [address] Director Of Revenue Cycle Management - Tanya Sears MD [place] ID [id number] ORD# [id number] Kev CASEY LAB - BLOOD DRAW Edited Result - Final [address] [address], * COLONOSCOPY (05/20/2011) us Provider [facility] PROCEDURES Final Result from Last 3 Months or Most Recently Relevant to Health Maintenance Insurance [employer] DENTAL [facility] [employer] Member Subscriber Plan / Payer (Ef fective 2019-Present) Name:Bryan Mtz Relation to Subscriber:Self Name:Bryan Mtz Payer ID:[id number] Group ID:Not on file Type:Indemnity Address: [address] [place] [address] [place] MEDICAID DENTAL [facility] - DENTAL Care Teams Correspondence School Teacher Relationship Specialty Start Date End Date Phil Le MD [address] [place] [address] PCP - General Internal Medicine 04/06/24
--- OUTSIDE RECORDS SUMMARY | 2024-06-15 11:31 | XMS_ITS | Clinical Summary ---
Author Organization 175 [facility] Address [address] [place] [address] Phone Care Team Providers Care Forestry And Wildlife Manager Name Role Phone Physician, Pcp Unknown Primary [...] 1:00 PM EDT Office Visit Orthopedic Surgery [facility] [address] [place] [phone] Patrick Lord, DPM Dermatophytosis of nail (Primary Dx); Corns and callosities; Type II diabetes mellitus with peripheral circulatory disorder (CMS/HCC V24, CMS/HCC V28); Metatarsalgia of both feet; Diabetic mononeuropathy simplex (CMS/HCC V24, CMS/HCC V28); Primary osteoarthritis of both feet 04/22/2024 2:19 PM EDT - 04/22/2024 6:47 PM EDT Emergency [facility] Emergency [address] [place] [phone] Nicko Pérez MD Constipation, unspecified constipation type (Primary Dx) Discharge Disposition: Home or Self Care 03/31/2024 Telephone Gastroenterology - [place] 175 [facility] 175 [facility] 200 [place] [phone] Robert Foster, PA radiology from Last 3 Months Medical History Medical History Date Comments Constipation DX:Constipation History of colitis DX:History of colitis Dysphagia DX:Dysphagia Esophageal reflux DX:Esophageal reflux Diabetes mellitus type 2, co ntrolled, with complications (CMS/HCC V24, CMS/HCC V28) DX:Diabetes mellitus type 2, controlled, with complications ([facility]) Social History Tobacco Use Types Packs/Day Years [...] 1:45 PM EDT Office Visit Orthopedic Surgery [facility] [address] [phone] Patrick Lord, DPSonia 175 [facility] 250 [place] [address] Health Maintenance Due Date Last Done Comments [...] Signed Date: 04/22/2024 16:59 ET Workstation ID: [id number] Transcribed By: Self Edit Transcribed Date: 04/22/2024 [...] Signed Date: 04/22/2024 16:59 ET Workstation ID: [id number] Transcribed By: Self Edit Transcribed Date: 04/22/2024 16:55 ET Laina العلي IMG CT PROCEDURES Final Result * ECG 12 lead (04/22/2024 4:06 PM EDT) Ventricular Rate ECG 56 BPM GEMUSE Atrial Rate 56 BPM GEMUSE P-R Interval 188 ms GEMUSE QRS Duration 100 ms GEMUSE Q-T Interval 440 ms GEMUSE QTc 424 ms GEMUSE P Wave [place] 42 degrees GEMUSE R [place] -37 degrees GEMUSE T [place] 9 degrees GEMUSE ECG Interpretation Sinus bradycardia [...] and culture (04/22/2024 2:24 PM EDT) Pathologist [facility] Specific [place] Urine 1.021 1.003 - 1.030 LAB URINALYSIS - AUTOMATED METHOD 04/22/2024 3:40 PM EDT [facility] pH, Urine 5.5 5.0 - 8.0 pH LAB URINALYSIS - AUTOMATED METHOD [facility] Leukocytes, Urine Trace(A) Negative LAB URINALYSIS - AUTOMATED METHOD 04/22/2024 3:40 PM [facility] Nitrite, Urine Negative Negative LAB URINALYSIS - AUTOMATED METHOD 04/22/2024 3:40 PM [facility] Protein, Urine Negative <=Trace mg/dL LAB URINALYSIS - AUTOMATED METHOD 04/22/2024 3:40 PM [facility] Glucose, Urine Negative Negative mg/dL LAB URINALYSIS - AUTOMATED METHOD 04/22/2024 3:40 PM [facility] Ketones, Urine Trace(A) Negative mg/dL LAB URINALYSIS - AUTOMATED METHOD 04/22/2024 3:40 PM T [facility] Urobilinogen, Urine 0.2 0.2 - 1.0 mg/dL LAB URINALYSIS - AUTOMATED METHOD 04/22/2024 3:40 PM [facility] Bilirubin, Urine Negative Negative LAB URINALYSIS - AUTOMATED METHOD 04/22/2024 3:40 PM [facility] Blood, Urine Small(A) Negative LAB URINALYSIS - AUTOMATED METHOD 04/22/2024 3:40 PM [facility] RBC, Urine 6.1(H) 0 - 4 /HPF LAB URINALYSIS - AUTOMATED METHOD 04/22/2024 3:40 PM EDT [facility] WBC, Urine 4.1(H) 0 - 4 /HPF LAB URINALYSIS - AUTOMATED METHOD 04/22/2024 3:40 PM EDT [facility] Squamous Epithelial, Urine 23 0 - 60 /LPF LAB URINALYSIS - AUTOMATED METHOD 04/22/2024 3:40 PM EDT [facility] Bacteria, Urine Negative Negative /HPF LAB URINALYSIS - AUTOMATED METHOD 04/22/2024 3:40 PM EDT [facility] Hyaline Casts, Urine 0.4 0 - 3 /LPF LAB URINALYSIS - AUTOMATED METHOD 04/22/2024 3:40 PM EDT [facility] Urine Urine specimen obtained by clean catch procedure / Unknown Non-blood Collection / Unknown 04/22/2024 2:24 PM EDT 04/22/2024 3:23 PM EDT us [employer] LAB URINE ORDERABLES Final Resul t Performing Organization Address [facility] de Phone Number [facility] [address] [place] [address], [place] [phone] * López urine culture tube (04/22/2024 2:24 PM EDT) Extra Tube Hold for add-ons. 04/22/2024 5:01 PM EDT [facility] Comment:Auto resulted. Urine Urine specimen obtained by clean catch procedure / Unknown Non-blood Collection / Unknown 04/22/2024 2:24 PM EDT 04/22/2024 3:23 PM EDT us [employer] LAB URINE ORDERABLES Final Resul t Performing Organization Address City/[facility]/ZIP Co de Phone Number [facility] [address] [place] [address], [place] [phone] * Culture urine (04/22/2024 2:24 PM EDT) [facility] Culture, Urine No growth 04/23/2024 11:42 AM EDT [facility] Urine Urine specimen obtained by clean catch procedure / Unknown Non-blood Collection / Unknown 04/22/2024 2:24 PM EDT 04/22/2024 3:40 PM EDT Laina العلي LAB MICROBIOLOGY - GENERAL ORDER MICHELLE Final Result [facility] [address] [place] [address], [place] [phone] * (ABNORMAL) CBC auto differential (04/22/2024 11:18 AM EDT) [facility] WBC 6.8 4.8 - 10.8 K/mcL LAB HEMETOLOGY METHOD 04/22/2024 12:25 PM EDT [facility] RBC 4.60 4.50 - 5.50 M/mcL LAB HEMETOLOGY METHOD 04/22/2024 12:25 PM EDT [facility] Hemoglobin 13.4(L) 13.5 - 17.5 g/dL LAB HEMETOLOGY METHOD 04/22/2024 12:25 PM EDT [facility] Hematocrit 41.3(L) 42.0 - 54.0 % LAB HEMETOLOGY METHOD 04/22/2024 12:25 PM EDT [facility] MCV 90.2 79.0 - 98.0 FL LAB HEMETOLOGY METHOD 04/22/2024 12:25 PM EDT [facility] MCH 29.3 27.0 - 32.0 pcg LAB HEMETOLOGY METHOD 04/22/2024 12:25 PM EDT [facility] MCHC 32.4 32.0 - 37.0 g/dL LAB HEMETOLOGY METHOD 04/22/2024 12:25 PM [facility] RDW 12.4 11.0 - 15.0 % LAB HEMETOLOGY METHOD 04/22/2024 12:25 PM [facility] Platelets 268 130 - 400 K/mcL LAB HEMETOLOGY METHOD 04/22/2024 12:25 PM [facility] MPV 11.2(H) 7.0 - 11.0 FL LAB HEMETOLOGY METHOD 04/22/2024 12:25 PM [facility] NRBC 0.0 <1.0 % LAB HEMETOLOGY METHOD 04/22/2024 12:25 PM [facility] NRBC Absolute 0.00 <0.10 K/mcL LAB HEMETOLOGY METHOD 04/22/2024 12:25 PM [facility] Neutrophils Relative 47.8 % LAB HEMETOLOGY METHOD 04/22/2024 12:25 PM [facility] Lymphocytes Relative 38.9 % LAB HEMETOLOGY METHOD 04/22/2024 12:25 PM [facility] Monocytes Relative 8.1 % LAB HEMETOLOGY METHOD 04/22/2024 12:25 PM [facility] Eosinophils Relative 4.3 % LAB HEMETOLOGY METHOD 04/22/2024 12:25 PM [facility] Basophils Relative 0.6 % LAB HEMETOLOGY METHOD 04/22/2024 12:25 PM [facility] Immature Granulocytes Relative 0.3 % LAB HEMETOLOGY METHOD 04/22/2024 12:25 PM [facility] Neutrophils Absolute 3.25 1.50 - 7.00 K/mcL LAB HEMETOLOGY METHOD 04/22/2024 12:25 PM [facility] Lymphocytes Absolute 2.64 1.00 - 5.00 K/mcL LAB HEMETOLOGY METHOD 04/22/2024 12:25 PM EDT [facility] Monocytes Absolute 0.55 0.20 - 1.00 K/mcL LAB HEMETOLOGY METHOD 04/22/2024 12:25 PM EDT [facility] Eosinophils Absolute 0.29 0.00 - 0.50 K/mcL LAB HEMETOLOGY METHOD 04/22/2024 12:25 PM EDT [facility] Basophils Absolute 0.04 0.00 - 0.20 K/[facility] LAB HEMETOLOGY METHOD 04/22/2024 12:25 PM EDT [facility] Immature Granulocytes Absolute 0.02 0.00 - 0.03 K/[facility] LAB HEMETOLOGY METHOD 04/22/2024 12:25 PM EDT [facility] Blood Venous blood specimen / Unknown Venipuncture / Unknown 04/22/2024 11:18 AM EDT 04/22/2024 12:11 PM EDT Nicko Pérez MD LAB BLOOD ORDERABLES Anusha l Result [facility] [address] [place] [address], * Lipase (04/22/2024 11:18 AM EDT) Lipase 47 13 - 75 unit/L LAB CHEMISTRY METHOD 04/22/2024 12:58 PM EDT [facility] Blood Venous blood specimen / Unknown Venipuncture / Unknown 04/22/2024 11:18 AM EDT 04/22/2024 12:11 PM EDT Nicko Pérez MD LAB BLOOD ORDERABLES Anusha l Result [facility] [address] [place] [address], * (ABNORMAL) Comprehensive metabolic panel (04/22/2024 11:18 AM EDT) Sodium 138 133 - 145 mmol/L LAB CHEMISTRY METHOD 04/22/2024 12:58 PM [facility] Potassium 4.3 3.5 - 5.5 mmol/L LAB CHEMISTRY METHOD 04/22/2024 12:58 PM [facility] Chloride 103 96 - 110 mmol/L LAB CHEMISTRY METHOD 04/22/2024 12:58 PM [facility] CO2 28 21 - 32 mmol/L LAB CHEMISTRY METHOD 04/22/2024 12:58 PM [facility] Anion Gap 7 3 - 11 LAB CHEMISTRY METHOD 04/22/2024 12:58 PM [facility] Glucose 106(H) 70 - 100 mg/dL LAB CHEMISTRY METHOD 04/22/2024 12:58 PM [facility] BUN 9 5 - 25 mg/dL LAB CHEMISTRY METHOD 04/22/2024 12:58 PM [facility] Creatinine 1.01 0.70 - 1.30 mg/dL LAB CHEMISTRY METHOD 04/22/2024 12:58 PM [facility] eGFR 78 >=60 mL/min/1. 73m2 LAB CHEMISTRY METHOD 04/22/2024 12:58 PM [facility] Comment:Calculation based on the??Chronic Kidney Disease Epidemiology Collaboration (CKD-EPI) equation refit??without adjustment for race. BUN/Creatinine Ratio 8.9 LAB CHEMISTRY METHOD 04/22/2024 12:58 PM [facility] Calcium 9.3 8.5 - 10.5 mg/dL LAB CHEMISTRY METHOD 04/22/2024 12:58 PM [facility] AST (SGOT) 18 10 - 42 unit/L LAB CHEMISTRY METHOD 04/22/2024 12:58 PM EDT [facility] ALT (SGPT) 30 10 - 60 unit/L LAB CHEMISTRY METHOD 04/22/2024 12:58 PM EDT [facility] Alkaline Phosphatase 73 42 - 121 unit/L LAB CHEMISTRY METHOD 04/22/2024 12:58 PM EDT [facility] Total Protein 7.7 6.0 - 8.0 g/dL LAB CHEMISTRY METHOD 04/22/2024 12:58 PM EDT [facility] Albumin 3.8 3.2 - 5.0 g/dL LAB CHEMISTRY METHOD 04/22/2024 12:58 PM EDT [facility] Total Bilirubin 0.4 0.0 - 1.4 mg/dL LAB CHEMISTRY METHOD 04/22/2024 12:58 PM EDT [facility] Blood Venous blood specimen / Unknown Venipuncture / Unknown 04/22/2024 11:18 AM EDT 04/22/2024 12:11 PM EDT Nicko Pérez MD LAB BLOOD ORDERABLES Anusha l Result [facility] [address] [place] [address], * Colonoscopy (05/30/2022) Colonoscopy No Interpretation , Abstracted Anatomical Region Laterality Modality Other Historical Provider HEALTH MAINTENANCE Final Result from Last 3 Months or Most Recently Relevant to Health Maintenance Insurance [facility] MEDICARE Member Subscriber Plan / Payer (Ef fective 2019-Present) Name:Bryan Mtz Relation to Subscriber:Self Name:Bryan Mtz Payer ID:[id number] Group ID:[id number] Type:Not on file Address: [address] [place] [id number] MEDICAID - [place] Care Teams Forestry And Wildlife Manager Relationship Specialty Start Date End Date Physician, Pcp Unknown PCP - General 04/22/24
--- OUTSIDE RECORDS SUMMARY | 2024-06-15 11:31 | XMS_ITS | Encounter Summary ---
Author Organization [facility], Address [address] [place] [address] Phone Care Team Providers Care Ocean Freight Forwarder Name Role Phone Hillary Bennett PA-C Primary Care Provider Encounter Details Date Type Department Care Team (Late st Contact Info) Description 04/26/2024 Documentation Only [facility], [address] [place] [address] Stephanie Funes [address] [place] [address] Social History Tobacco Use Types [...] on filedocumented in this encounter Care Teams Ocean Freight Forwarder Relationship Specialty Start Date End Date Hillary Bennett PA-C [address] [place] [address] PCP - General Physician Teleservices Representative 11/01/20 documented as of this encounter
--- OUTSIDE RECORDS SUMMARY | 2024-06-15 11:31 | XMS_ITS | Encounter Summary ---
Author Organization [facility] Address [address] [place] [address] Phone Care Team Providers Care Content Coordinator Name Role Phone Hillary Bennett PA-C Primary Care Provider Encounter Details Date Type Department Care Team (Late st Contact Info) Description 06/07/2021 Documentation Only [facility] [place], [address] [place] [address] Chemo Odell MD [address] [phone] Social History Tobacco Use Types Packs/Day Years [...] on filedocumented in this encounter Care Teams Content Coordinator Relationship Specialty Start Date End Date Hillary Bennett PA-C [address] [place] [address] PCP - General Physician Bricklayer Sewer 11/01/20 documented as of this encounter
--- OUTSIDE RECORDS SUMMARY | 2024-06-15 11:31 | XMS_ITS | Clinical Summary ---
Author Organization [facility], Address [address] [place] [address] [place] [address] Phone Care Team Providers Care Banking Officer Name Role Phone Hillary Bennett PA-C [...] Only [facility], [address] [place] [address] MarinStephanie garcia 04/26/2024 Documentation Only [facility] [address] [place] [address] Marin, Stephanie 04/26/2024 Documentation Only [facility] [address] [place] [address] Marin, Stephanie 04/26/2024 Documentation Only [facility] [address] [place] [address] Marin, Stephanie 04/26/2024 Documentation Only [facility] [address] [place] [address] Stephanie Funes from Last 3 Months [...] AM EST) Hemoglobin A1C 7.2(H) (4.0-5.6) % [facility] Comment: MONITORING: In known diabetic patients, hemoglobin A1c targets should be discussed with health care provider. DIAGNOSTIC USE: ??The [place] Diabetes Association (ADA) and the World Health [...] Supplement 1 Testing performed or reported by [facility], a Service of [facility], [address] [place] [id number] Sienna Moncada MD, Microsoft Architect [facility]# [id number] Blood (Blood, Venous) 04/05/2021 11:25 AM EST 04/05/2021 11:26 AM EST us Zhang Grover MD LAB BLOOD ORDERABLES Final Re sult [facility] from Last 3 Months or Most Recently Relevant to Health Maintenance Insurance , [facility]. [place], [place] [id number] [place] [address] ([id number]) , [facility]. [place], [place] [id number] [address] ([id number]) [place] [phone] Care Teams Banking Officer Relationship Specialty Start Date End Date Hillary Bennett PA-C [address] [place] [address] PCP - General Physician Fitting Supervisor 11/01/20
--- OUTSIDE RECORDS SUMMARY | 2024-06-15 11:31 | XMS_ITS | Encounter Summary ---
Author Organization [facility], Address [address] [place] [address] Phone Care Team Providers Care General Dentist/Owner Name Role Phone Hillary Bennett PA-C Primary Care Provider Encounter Details Date Type Department Care Team (Late st Contact Info) Description 04/26/2024 Documentation Only [facility], [address] [place] [address] Stephanie Funes [address] [place] [address] Social History Tobacco Use Types [...] on filedocumented in this encounter Care Teams General Dentist/Owner Relationship Specialty Start Date End Date Hillary Bennett PA-C [address] [place] [address] PCP - General Physician Developer Support Engineer 11/01/20 documented as of this encounter
--- OUTSIDE RECORDS SUMMARY | 2024-06-15 11:31 | XMS_ITS | Encounter Summary ---
Author Organization [facility], Address [address] [place] [address] Phone Care Team Providers Care Data Security Analyst Name Role Phone Hillary Bennett PA-C Primary Care Provider Encounter Details Date Type Department Care Team (Late st Contact Info) Description 08/25/2023 Documentation Only [facility], [address] [place] [address] Stephanie Funes [address] [place] [address] Social History Tobacco Use Types [...] on filedocumented in this encounter Care Teams Data Security Analyst Relationship Specialty Start Date End Date Hillary Bennett PA-C [address] [place] [address] PCP - General Physician Pneumatic Tube Fitter 11/01/20 documented as of this encounter
--- OUTSIDE RECORDS SUMMARY | 2024-06-15 11:31 | XMS_ITS | Encounter Summary ---
Author Organization [facility], Address [address] [place] [address] Phone Care Team Providers Care Bung Sewer Name Role Phone Hillary Bennett PA-C Primary Care Provider Encounter Details Date Type Department Care Team (Late st Contact Info) Description 08/25/2023 Documentation Only [facility], [address] [place] [address] Stephanie Funes [address] [place] [address] Social History Tobacco Use Types [...] on filedocumented in this encounter Care Teams Bung Sewer Relationship Specialty Start Date End Date Hillary Bennett PA-C [address] [place] [address] PCP - General Physician Lipcoat Sprayer 11/01/20 documented as of this encounter
--- OUTSIDE RECORDS SUMMARY | 2024-06-15 11:31 | XMS_ITS | Encounter Summary ---
Author Organization [facility], Address [address] [place] [address] Phone Care Team Providers Care Office Asst Name Role Phone Hillary Bennett PA-C Primary Care Provider Encounter Details Date Type Department Care Team (Late st Contact Info) Description 04/26/2024 Documentation Only [facility], [address] [place] [address] Stephanie Funes [address] [place] [address] Social History Tobacco Use Types [...] on filedocumented in this encounter Care Teams Office Asst Relationship Specialty Start Date End Date Hillary Bennett PA-C [address] [place] [address] PCP - General Physician Bass Mechanism Maker 11/01/20 documented as of this encounter
== END 2024-06-15 11:26 | disposition home or self-care (01) ==
LOC: HO.HUSH 10:07
PROVIDERS: PCP Physician Assistant Medical; Visit Provider Urology
DX: Z13.9 Encounter for screening, unspecified (principal)

== ENCOUNTER 2024-10-18 12:59 | Outpatient (REF) | payer OTHER, SELFPAY ==
[2024-10-18 16:23] LABS: PSA,Total (Free>4and<10) 1.01 ng/mL (0.00-4.00)
--- OUTSIDE RECORDS SUMMARY | 2024-10-18 17:05 | XMS_ITS | Clinical Summary ---
Author Organization [facility] Address [address] [place] [address] Care Team Providers Care Engine Lathe Set Up Operator Name Role Phone Phil Le MD Primary Care Provider [phone] Source Comments PLEASE NOTE, if this patient is a minor, it may be UNLAWFUL to discuss sensitive information that is contained in these records (such as FAMILY PLANNING, MENTAL HEALTH or SUBSTANCE ABUSE) with the minor patient's parent or other person without the patient's specific authorization.[facility] Allergies Active Allergy Reactions Criticality Noted Date Comments Lisinopril Cough 10/25/2017 Medications miscellaneous medical supply miscIndications: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 ([facility]) by miscellaneous route once daily DX E11.9 Freestyle Shukri flash glucose scanning reader use w/sensor to check blood glucose TID Disp 1 1 Each 019 Active miscellaneous medical supply miscIndications: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 ([facility]) by miscellaneous route once daily DX E11.9-Freestyle Shukri Apply sensor every 10 day , place reader near sensor for reading 3 kits 5 refills 3 Each 5 019 Active blood-glucose meter monitoring kitIndications:Di abetes mellitus type 2 in obese as needed for blood glucose monitoring 1 Each 020 Active pregabalin (LYRICA) 100 mg capsuleIndication s:Diabetic mononeuropathy associated with type 2 diabetes mellitus ([facility]) TAKE 1 CAPSULE BY MOUTH TWICE A DAY 60 Capsule 1 022 Active desonide (DESOWEN) 0.05 % ointmentIndicatio ns:Dermatitis Apply topically 2 (two) times daily 15 g 022 Active emollient combination no.115 (VANICREAM MOISTURIZING) lotnIndications:D ermatitis Apply 1 application topically 2 (two) times daily 227 g 1 022 Active lidocaine (LIDODERM) 5 % patchIndications: Multiple joint pain 023 Active diclofenac sodium (VOLTAREN) 1 % gelIndications:Mu ltiple joint pain 023 Active bisacodyL (DULCOLAX) 5 mg EC tablet TAKE 2 TABLETS BY MOUTH RIGHT BEFORE YOUR DOSE OF LIQUID PREP [address] aspirin [address] tabletIndications :Diabetes mellitus type 2 in nonobese ([facility]) TAKE 1 TABLET BY MOUTH ONCE A DAY ^1R1 30 Tablet 5 023 Active FARXIGA 10 mg tab Authorized by: ARELIS CHA 023 Active sennosides-docusa te sodium (SENNA-S) 8.6-50 mg per tabletIndications :Slow transit constipation TAKE ONE TABLET BY MOUTH EVERY DAY NEEDED FOR CONSTIPATION ^1R4 90 Tablet 1 023 Active MISCELLANEOUS MEDICAL SUPPLY MISCIndications:V aricose veins of left lower extremity with pain Large size compression stockings x 99 years Ht 5'7 wt 227 lbs 2 Each 023 Active losartan (COZAAR) 25 mg tabletIndications :Essential hypertension TAKE ONE TABLET BY MOUTH EVERY DAY ^1R1 30 Tablet 5 023 Active traZODone (DESYREL) 100 mg tabletIndications :Trouble in sleeping TAKE ONE TABLET BY MOUTH AT BEDTIME ^1R4 30 Tablet 5 023 Active bisacodyL (DULCOLAX) 10 mg suppository INSERT 1 SUPPOSITORY RECTALLY ONCE FOR 1 DOSE (BULK) 1 Suppository 024 Active FREESTYLE LANCETS 28 gaugeIndications: Type 2 diabetes mellitus with hyperglycemia, unspecified whether watermelon harvesting supervisor insulin use ([facility]) USE DIRECTED TWO TIMES A DAY TO CHECK BG 100 Each 11 024 Active blood sugar diagnostic (FREESTYLE LITE STRIPS) stripsIndications :Type 2 diabetes mellitus with hyperglycemia, unspecified whether jail insulin use ([facility]) USE DIRECTED TWO TIMES A DAY 100 Each 11 024 Active UNIFINE PENTIPS 31 gauge x 06/25 ndleIndications:T ype 2 diabetes mellitus with hyperglycemia, unspecified whether watermelon harvesting supervisor insulin use ([facility]) USE DIRECTED TWO TIMES A DAY FOR INSULIN ADMINISTRATION 100 Each 11 024 Active metoprolol succinate XL (TOPROL-XL) 25 mg 24 hr tabletIndications :Heart failure with reduced ejection fraction ([facility]),NSTEMI (non-ST elevated myocardial infarction) ([facility]) TAKE ONE TABLET BY MOUTH EVERY DAY (R4 PER PT) ^1R4 90 Tablet 1 024 Active tamsulosin (FLOMAX) 0.4 mg 24 hr capsuleIndication s:Lower urinary tract symptoms (LUTS) TAKE ONE CAPSULE BY MOUTH EVERY DAY 30 MINUTES FOLLOWING THE SAME MEAL ONCE DAILY 30 Capsule 5 024 Active acetaminophen (TYLENOL 8 HOUR) 650 mg CR tabletIndications :Multiple joint pain TAKE ONE TABLET BY MOUTH AT BEDTIME ^1R4 30 Tablet 5 024 Active rOPINIRole (REQUIP) 4 mg tabletIndications :Muscle spasms of both lower extremities TAKE ONE TABLET BY MOUTH AT BEDTIME ^1R4 90 Tablet 1 024 Active JANUMET XR 100-1,000 mg [id number]:T ype 2 diabetes mellitus with hyperglycemia, unspecified whether watermelon harvesting supervisor insulin use ([facility]) TAKE ONE TABLET BY MOUTH EVERY DAY ^1R1 30 Tablet 5 024 Active LANTUS SOLOSTAR U-100 INSULIN 100 unit/mL (3 mL) penIndications:Ty pe 2 diabetes mellitus with hyperglycemia, unspecified whether watermelon harvesting supervisor insulin use ([facility]) INJECT 40 UNITS UNDER THE SKIN AT BEDTIME (BULK) 30 mL 1 024 Active omeprazole (PRILOSEC) [address] capsuleIndication s:Epigastric pain,Gastroesopha geal reflux disease without esophagitis TAKE ONE CAPSULE BY MOUTH EVERY MORNING 30 Capsule 5 024 Active atorvastatin (LIPITOR) 20 mg tablet TAKE ONE TABLET BY MOUTH EVERY DAY ^1R4 30 Tablet 5 025 Active levothyroxine 50 mcg tabletIndications :Acquired hypothyroidism TAKE ONE TABLET BY MOUTH EVERY DAY ^1R1 30 Tablet 5 025 Active alcohol swabsIndications: DM2 (diabetes mellitus, type 2) ([facility]) USE THREE TIMES A DAY (BULK) 100 Each 5 025 Active polyethylene glycol, PEG, 3350 (GLYCOLAX) 17 gram/dose powderIndications :Slow transit constipation TAKE ONE CAPFUL MIXED WITH 8 OZ OF FLUID AND DRINK BY MOUTH ONCE DAILY (BULK) 510 g 2 025 Active ELIQUIS 5 mg tabIndications:At rial fibrillation, unspecified type ([facility]) TAKE ONE TABLET BY MOUTH TWICE A DAY ^1R1,1R4 60 Tablet 5 025 Active lanolin-mineral oil (THERA-DERM) lotion APPLY TOPICALLY TO THE AFFECTED AREA(S) TWO TIMES A DAY (BULK) 236 mL 1 025 Active ENTRESTO 24-26 mg tabIndications:He art failure with reduced ejection fraction ([facility]) TAKE ONE TABLET BY MOUTH TWICE A DAY ^1R1,1R4 60 Tablet 5 025 Active cholecalciferol, vitamin D3, 25 mcg (1,000 unit) capsuleIndication s:Vitamin D deficiency TAKE ONE CAPSULE BY MOUTH EVERY DAY ^1R1 30 Capsule 025 Active Active Problems Problem Noted Date Diagnosed Date NSTEMI (non-ST elevated myoc ardial infarction) ([facility]) 08/01/2022 Atrial fibrillation ([facility]) 08/01/2022 Heart failure with reduced e jection fraction ([facility]) 08/01/2022 Neuropathy 07/16/2022 07/16/2022 Stage 3 chronic kidney disease ([facility]) 0 04/23/2021 Chronic right-sided low back pain without sciati ca 08/06/2019 Slow transit constipation 08/06/2019 JUSTEN on CPAP 01/06/2018 Overview (01/06/2018): Diagnosis - 2012 H/O colonoscopy 03/07/2016 Overview (03/07/2016): Colonoscopy done at [facility] 05/20/2011 - impression internal hemorrhoids Otherwise normal colonoscopy to the terminal ileum- repeat recommendations 10 yrs - due 2021 Colitis 08/14/2015 Overview (08/14/2015): Seen in [facility] ,CT abdomen consistent with colitis-tx with Flagyl and Levaquin Neuropathy, diabetic ([facility]) 01/19/2014 Phimosis 06/28/2013 Chronic LBP 01/15/2013 Hematuria 01/15/2013 Vitamin D deficiency 12/04/2012 Varicose vein of leg 12/04/2012 DM type 2 (diabetes mellitus, type 2) ([facility]) 09/29/2012 DM type 2 with diabetic chris pheral neuropathy ([facility]) Obesity Essential hypertension Insomnia Depression Mixed hyperlipidemia Immunizations Immunization Administration Dates Next Due Flu, High Dose, 65y+, Fluzon e High Dose 12/09/2022,10/31/2021,12/15/2019 Flu, Preservative Free 11/06/2018 HEP A-HEP B ([place]) 11/14/2022,07/11/2022 Hep B, Adult/Adol (ZMRRPDO-B-ZFCYM/RECOMBIVAX-ADULT) 06/05/2018 INFLUENZA VIRUS VACCINE,SPLI T,6-35 MO (NON-INTERFACE) 11/20/2010,02/19/2010 [...] 62 01/01/2023 4:10 PM EST Temperature 36.7 C (98 F) 12/09/2022 2:02 PM EDT Respiratory Rate 18 [...] Comments Dental FMX/Pano 1949 Tobacco Screening 1950 Medicare Annual Wellness Visit 1967 CT Colonography 1994 Fecal DNA 1994 Flexible Sigmoidoscopy 1994 FIT/gFOBT 05/12/2018 05/12/2017, 03/07/2016 Retinopathy Screening 05/27/2019 05/26/2018 (Managed by Outside Provider) Colonoscopy 05/19/2021 05/20/2011 Colorectal Cancer Screening 05/19/2021 Falls Prevention 11/16/2022 11/16/2021 TSH Monitoring 11/16/2022 11/16/2021, 05/2019, 02/22/2019, Additional history exists Hemoglobin A1c 02/05/2023 11/06/2022, 02/2022, 12/26/2021, Additional history exists Depression Monitoring 03/11/2023 12/09/2022 , 11/06/2022, 07/16/2022, Additional history exists Imm-Hepatitis A (3 of 3 - He p A Twinrix risk 3-dose series) 04/15/2023 11/14/2022, 07/11/2022 Dental Prophy 07/04/2023 01/01/2023, 06/10, 12/28/2021, Additional history exists HIV Screening 07/12/2023 07/11/2022 Lipid Screening 07/12/2023 07/11/2022, 1008/2021, 04/25/2021, Additional history exists Syphilis Screening 07/12/2023 07/11/2022 Diabetes Foot Exam 11/07/2023 11/06/2022 Dental BW [...] 02/28/2024 02/27/2023, 07/11/2022, 06/07/2021, Additional history exists Imm-RSV (adult) (1 - 1-dose 75+ series) 2024 Saa-NRSGD-10 ( - season) 2024 07/11/2022, 06/14/2020, 05/17/2020 Imm-Influenza (#1) 2024 12/09/2022, 0 10/31/2021, 12/15/2019, Additional history exists Imm-DTaP/Tdap/Td (3 - Td or Tdap) 09/14/2025 016, 03/12/2014 Hepatitis C Screening Completed 04/10/2018 Imm-Pneumococcal 50+ Completed 02/22/2020, 09/15/2015, 01/28/2012 Imm-Zoster, Recombinant Completed [...] medical examination at a [facility] facility COLONOSCOPY Routine 05/20/2011 from Last 3 Months or Most Recently Relevant to Health Maintenance Results * (ABNORMAL) HGBA1C W/MPG (11/06/2022 11:56 AM EDT) HEMOGLOBIN A1C 5.8(H) <5.7 % of total Hgb [employer] Comment: For someone without known diabetes, a [...] children. MEAN PLASMA GLUCOSE 129 mg/dL (calc) [employer] 11/06/2022 11:5 6 AM EDT 11/06/2022 11:57 AM EDT us Kristen Howell PharmD LAB - BLOOD DRAW Edited Res ult - Final [employer] [address] [place] [id number], [employer] [address] [place] [phone] * (ABNORMAL) BASIC METABOLIC PANEL CALCIUM TOTAL (08/02/2022 10:43 AM EDT) Pathologist [facility] GLUCOSE 118(H) 65 - 99 mg/dL [employer] [facility] Comment: Fasting reference interval For someone without known diabetes, a glucose value between 100 and 125 mg/dL is consistent with prediabetes and should be confirmed with a follow-up test. UREA NITROGEN (BUN) 17 7 - 25 mg/dL [employer] [facility] CREATININE (blood) 1.06 0.70 - 1.28 mg/dL [employer] EGFR 74 > OR = 60 mL/min/1 .73m2 [employer] Comment: The eGFR is based on the CKD-EPI 2020 equation. To calculate the new eGFR from a previous Creatinine or Cystatin C result, go to https://www.kidney.org/professionals/ kdoqi/gfr%5Fcalculator BUN/CREATININE RATIO NOT APPLICABLE 6 - [employer] [facility] SODIUM 136 135 - 146 mmol/L [employer] [facility] POTASSIUM 4.8 3.5 - 5.3 mmol/L [employer] [facility] CHLORIDE 99 98 - 110 mmol/L [employer] [facility] CARBON DIOXIDE 31 20 - 32 mmol/L [employer] [facility] CALCIUM 10.0 8.6 - 10.3 mg/dL [employer] [facility] Blood Blood / Unknown 08/02/2022 1 0:43 AM EDT 08/02/2022 10:44 AM EDT us Lokesh Allen PA-C LAB - BLOOD DRAW Final Resul t [employer] [address] [address], [facility] [address] [place] [address] * HIV 1/2 AG & AB W/RFLX (4TH GEN) (07/11/2022 11:02 AM EDT) [facility] HIV AG/AB, 4TH GEN NON-REAC TIVE NON-REAC TIVE [employer] [facility] Comment: HIV-1 antigen and HIV-1/HIV-2 antibodies were not detected. There is no laboratory evidence of HIV infection. PLEASE NOTE: This information has been disclosed to you from records whose confidentiality may be protected by state law. If your state requires such protection, then the state law prohibits you from making any further disclosure of the information without the specific written consent of the person to whom it pertains, or as otherwise permitted by law. A general authorization for the release of medical or other information is NOT sufficient for this purpose. For additional information please refer to http://education.[employer]/faq/NBM905 (This link is being provided for informational/ educational purposes only.) The performance of this assay has not been clinically validated in patients less than 2 years old. Blood Blood / Unknown 07/11/2022 1 1:02 AM EDT 07/11/2022 11:03 AM EDT Narrative [employer] [facility] - 07/15/2022 1:23 PM EDT FASTING:NO us Hillary Bennett PA-C LAB - BLOOD DRAW Final Resul t Performing Organization Address [facility]/ZIP Co de Phone Number [facility] [address] [address], My [place]...Exactly [address] [address] * RPR W/RFLX TITER+FTA+CONF (07/11/2022 11:02 AM EDT) RPR (DX) W/REFL TITER AND CONFIRMATORY TESTING NON-REACT LEONCIO NON-REACT LEONCIO [facility] Blood Blood / Unknown 07/11/2022 1 1:02 AM EDT 07/11/2022 11:03 AM EDT Narrative [employer] [facility] - 07/15/2022 1:23 PM EDT FASTING:NO us Hillary Bennett PA-C LAB - BLOOD DRAW Edited Resu lt - Final Performing Organization Address [facility]/ZIP Co de Phone Number [facility] [address] [address], [employer] [place]...Exactly [address] [address] * MICROALBUMIN/CREATININE RATIO, URINE, RANDOM (07/11/2022 11:02 AM EDT) CREATININE, RANDOM URINE 95 20 - 320 mg/dL [employer] MICROALBUMIN 0.3 mg/dL [employer] [facility] Comment: Reference Range Not established MICROALBUMIN/CREA TININE RATIO, RANDOM URINE 3 <30 mcg/mg creat [facility] Comment: The ADA defines abnormalities in albumin excretion as follows: Albuminuria Category Result (mcg/mg creatinine) Normal to Mildly increased <30 Moderately increased 30-299 Severely increased > OR = 300 The ADA recommends that at least two of three specimens collected within a 3-6 month period be abnormal before considering a patient to be within a diagnostic category. Urine Urine specimen / Unknown 07/11/2022 11:02 AM EDT 07/11/2022 11:03 AM EDT Narrative [employer] - 07/15/2022 1:23 PM EDT FASTING:NO Hillary Bennett PA-C LAB URINE AMBULATORY Final R esult [employer] [address] [place] [id number], [employer] [address] [address] * (ABNORMAL) LIPID PANEL (07/11/2022 11:02 AM EDT) CHOLESTEROL, TOTAL 116 <200 mg/dL [employer] [facility] HDL CHOLESTEROL 33(L) > OR = 40 mg/dL [employer] [facility] TRIGLYCERIDES 138 <150 mg/dL [employer] [facility] LDL-CHOLESTEROL 61 99 mg/dL (calc) [facility] [employer] [facility] Comment: Reference range: <100 Desirable range <100 mg/dL for primary prevention; <70 mg/dL for patients with CHD or diabetic patients with > or = 2 CHD risk factors. LDL-C is now calculated using the Bebo calculation, which is a validated novel method providing better accuracy than the Friedewald equation in the estimation of LDL-C. Francisco MURO et al. STEVEN. 2013;310(19): 2805-6565 (http://education.[employer]/faq/GAM272) CHOL/HDLC RATIO 3.5 <5.0 (calc) [facility] NON-HDL CHOLESTEROL 83 <130 mg/dL (calc) [facility] Comment: For patients with diabetes plus 1 major ASCVD risk factor, treating to a non-HDL-C goal of <100 mg/dL (LDL-C of <70 mg/dL) is considered a therapeutic option. Blood Blood / Unknown 07/11/2022 1 1:02 AM EDT 07/11/2022 11:03 AM EDT Narrative [facility] - 07/15/2022 1:23 PM EDT FASTING:NO Hillary Bennett PA-C LAB - BLOOD DRAW Final Resul t Performing Organization Address City/[facility]/ZIP Co de Phone Number [facility] [address] [address], [facility] [address] [address] * (ABNORMAL) THYROID PANEL WITH TSH (11/16/2021 1:25 PM EDT) TSH 1.15 0.40 - 4.50 mIU/L [facility] T-3 UPTAKE 29 22 - 35 % [email or web address] [facility] T-4 (THYROXINE), TOTAL 10.9(H) 4.9 - 10.5 mcg/dL [facility] FREE T4 INDEX (T7) 3.2 1.4 - 3.8 [employer] [facility] Blood Blood / Unknown 11/16/2021 1 :25 PM EDT 11/16/2021 1:25 PM EDT Narrative [facility] - 11/20/2021 9:07 PM EDT FASTING:YES Briarubberitmay Bennett PA-C LAB - BLOOD DRAW Final Resul t [facility] [address] [address], [facility] [address] [address] * (ABNORMAL) HEPATITIS A,B,C PANEL (04/10/2018 10:10 AM EST) HEPATITIS B SURFACE ANTIBODY NEGATIVE NEGATIVE [facility] HEPATITIS B SURFACE ANTIGEN NEGATIVE NEGATIVE [facility] Comment: Over the counter supplements containing high doses of biotin may interfere with this assay. If interference is suspected, patients shoud be retested after refraining from biotin supplements for 72 hours. HEPATITIS C VIRUS DIAGNOSTIC NEGATIVE NEGATIVE [facility] HEPATITIS B CORE ANTIBODY NEGATIVE NEGATIVE [facility] HEPATITIS A ANTIBODY TOTAL POSITIVE(A) NEGATIVE [facility] Comment: Over the counter supplements containing high doses of biotin may interfere with this assay. If interference is suspected, patients shoud be retested after refraining from biotin supplements for 72 hours. Blood specimen (specimen) Blood / Unknown 04/10/2018 10:10 AM EST 04/10/2018 10:51 AM EST [facility] - 04/10/2018 1:23 PM EST [employer] [address] Sawmill Relief Worker - Tanya Sears MD [place] [id number] ORD# [id number] Kev CASEY LAB - BLOOD DRAW Edited Result - Final Performing Organization Address City/State/[facility] [place] [address], * COLONOSCOPY (05/20/2011) us Provider [facility] PROCEDURES Final Result from Last 3 Months or Most Recently Relevant to Health Maintenance Insurance [place] [place] [facility] [facility] Care Teams Engine Lathe Set Up Operator Relationship Specialty Start Date End Date Phil Le MD [address] [place] [address] PCP - General Internal Medicine 04/06/24
--- OUTSIDE RECORDS SUMMARY | 2024-10-18 17:05 | XMS_ITS | Encounter Summary ---
Author Organization [facility] Address [address] [place] [address] Care Team Providers Care Sanforizer Name Role Phone Phil Le MD Primary Care Provider [phone] Encounter Details Date Type Department Care Team (Late st Contact Info) Description 11/07/2022 Interim Notes [facility] [address] [place] [address] Yulia Grier [address] [place] [address] Social History Tobacco Use Types Packs/Day Years [...] Score: 5 11/07/19 23 11:21 AM PDT A Depression follow-up plan has been documented for the patient 10/01/2022 4:30 PM PDT documented as of this encounter Care Teams Sanforizer Relationship Specialty Start Date End Date Phil Le MD [address] [place] [address] PCP - General Internal Medicine 04/06/24 documented as of this encounter
== END 2024-10-18 13:00 | disposition home or self-care (01) ==
LOC: HO.LAB 12:59
PROVIDERS: PCP Family Medicine; Visit Provider Urology
DX: N35.919 Unspecified urethral stricture, male, unspecified site (principal); N40.1 Benign prostatic hyperplasia with lower urinary tract symptoms; R39.12 Poor urinary stream; Z12.5 Encounter for screening for malignant neoplasm of prostate
CPT/HCPCS: 36415; 81003; 84153; 99212

== ENCOUNTER 2024-10-18 12:59 | Outpatient (AMB) | payer OTHER, SELFPAY ==
--- NOTE | 2024-10-18 13:31 | MHC.OFFVIS ---
Intake Visit Reasons: Urethral dilation/ PSA Intake Note: Patient is present for Uretheral Dialation/PSA Urology Medication:Tamsulosin Antibiotic Allergies: None Blood Thinners: [employer] Clinical Interviewer Required: Yes Allergies No Known Allergies Allergy (Verified 10/18/24 13:33) HPI Comments Details: 10/18/24--FU-urethral dilation. Bryan is followed for meatal stenosis. Here for urethral dilation. He is complaining of itching around the glans. He is complaining of pain with urination. Urethral dilation performed with Cathy sounds-- starting with a 12 Belizean and sequentially dilated up to a 20 Belizean sound. He is prescribed tamsulosin and finasteride for BPH. Will continue urethral dilations. Follow-up in 14 weeks. Sent to the lab for PSA today. 06/15/24---FU-urethral dilation. Bryan is followed for meatal stenosis. Here for urethral dilation. He is complaining of itching around the glans. He is complaining of pain with urination. Urethral dilation performed starting with a 14 Belizean catheter and sequentially dilated up to a 20 Belizean sound. He is also on tamsulosin and finasteride for BPH. Will continue urethral dilations. 01/12/24-- FU-urethral dilation. Bryan is followed for meatal stenosis. Here for urethral dilation. He is complaining of itching around the glans. He is complaining of pain with urination. Urethral dilation performed starting with a 14 Belizean catheter and sequentially dilated up to a 20 Belizean sound. He is also on tamsulosin and finasteride for BPH. Will continue urethral dilations. 10/23/23-Bryan is followed for meatal stenosis. Here for urethral dilation. He is complaining of itching around the glans. He is complaining of pain with urination. Urethral dilation performed starting with a 10 Belizean catheter and sequentially dilated up to a 22 Belizean sound. He is instructed to use a 16 Belizean catheter to dilate the meatus Friday. 06/23/23--Bryan is a 72-year-old male who presents today(Certified lithuanian interpretor present) to the office for follow up with PSA screening. He has h/o meatal stenosis and is instructed on CIC once a day. He is also on tamsulosin and proscar daily for BPH. He was last seen on 01/22/23 for office urethral dilation. He states he is urinating well. He has not been cath'ing daily. Urethal dilation performed, and the patient tolerated well. Follow up in 4-6 months for repeat office dilation. 04/24/23--Bryan is a 72-year-old male who presents today(Certified lithuanian interpretor present) to the office for follow up with PSA screening. He has h/o meatal stenosis and is instructed on CIC once a day. He is also on tamsulosin and proscar daily for BPH. He was last seen on 01/22/23 for office urethral dilation. He states he is urinating well. He is cath'ing once daily. He denies dysuria. UA- 1+ leuks, trace blood. I reviewed PSA - 04/14/23--1.11 ng/mL. Review of Results-- Retroperitoneum US results from 09/03/2022 revealed no nephrolithiasis or hydronephrosis, and enlarged prostate. Office cystoscopy-- 09/04/2022 -- cystoscopy findings bulbous urethra: normal; bladder: no suspicious bladder lesions noted. 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 Stage 3 chronic kidney disease Slow transit constipation Chronic back pain Colitis Urethral meatal stenosis Male erectile disorder Primary insomnia Depression AA (alcohol abuse) Cocaine abuse Type 2 diabetes mellitus Hypothyroidism Morbid obesity Hyperlipemia Phimosis Organic impotence Benign prostatic hyperplasia Surgical History Hx of colonoscopy History of circumcision Family History Father Medical history unknown Mother Medical history unknown Social History Alcohol intake: never Patient Tobacco Use Status: Never used Tobacco Review of Systems Const All systems reviewed & are unremarkable except as noted in HPI and below Reports no additional complaints Eyes Reports no additional complaints ENT Reports no additional complaints Card Reports no additional complaints Resp Reports no additional complaints GI Reports no additional complaints Reports as per HPI Musc Reports no additional complaints Skin/Breast Reports system reviewed and no additional complaints, except as documented Neuro Reports no additional complaints Psych Reports no additional complaints Endo Reports no additional complaints Du/Lymph Reports no additional complaints Aller/Immun Reports no additional complaints Office Procedures Generic Document Section Details: Patient given 1x dose of ciprofloxacin 500mg and pyridium 100mg. Injection of 1 urojet lidocaine 2% into patients urethra for prep to urethral dilation. Urethral meatus dilated 12 Belizean sequentially to 20 Belizean using Cathy sounds Assessment & Plan Assessment & Plan (1) Screening PSA (prostate specific antigen): Code(s): Z12.5 - Encounter for screening for malignant neoplasm of prostate Category: Medical (2) Urethral meatal stenosis: Code(s): N35.919 - Unspecified urethral stricture, male, unspecified site Category: Medical (3) BPH loc w urin obs/LUTS: Code(s): N40.1 - Benign prostatic hyperplasia with lower urinary tract symptoms Category: Medical (4) Weak urinary stream: Code(s): R39.12 - Poor urinary stream Category: Medical Plan Cont urethral dilation every 3 months, tamsulosin, finesteride, lotrisone cream prn to penile glans. Orders: Orders Urethral Dilation Today N35.919 - Unspecified urethral stricture, male, unspecified site PSA,Total (Free>4and<10) Today Z12.5 - Encounter for screening for malignant neoplasm of prostate Patient Instructions: The patient had an opportunity to ask questions regarding treatment plan. The patient expressed understanding and agreement with the above treatment plan. The patient is aware they should contact our office by phone for worsening of their current condition or the appearance of new symptoms. Compliance is encouraged with any medications and followup testing that is ordered. It is a privilege to be allowed the opportunity to participate in the urologic care of your patient. If you have any questions or concerns regarding treatment for the above conditions please do not hesitate to contact me. The office telephone contact is [phone]. This note is constructed in part using voice recognition software. While every effort has been made to ensure accuracy laborer drying department errors may have been included. Yours sincerely, Silke Sharif MD Coding Level of Care Code Est Pt Level 3 (75190) Diagnoses Screening PSA (prostate specific antigen) Z12.5 Urethral meatal stenosis N35.919 BPH loc w urin obs/LUTS N40.1 Weak urinary stream R39.12
--- OUTSIDE RECORDS SUMMARY | 2024-10-18 15:08 | XMS_ITS | Clinical Summary ---
Author Organization [facility], Address [address] [place] [address] [place] [address] Phone Care Team Providers Care Supervisor Poultry Processing Name Role Phone Hillary Bennett PA-C Primary [...] atrial fibrillation Neuropathy Microscopic hematuria Hypertension Hypothyroidism Immunizations Immunization Administration Dates Next Due Hep [...] series) 04/15/2023 11/14/2022, 07/11/2022, 06/05/2018 Influenza Vaccine (#1) 2024 0, 02/05/2019, 11/06/2018, Additional history exists Pneumococcal Vaccine: 50+ Years Completed 02/22/2020, 09/15/2015, 01/28/2012 Procedures Procedure Name Priority Date/Time Associated Diagnosis Comments HEMOGLOBIN A1C Routine 04/05/2021 11:25 AM EST Stage 3a chronic kidney disease (HCC) from Last 3 Months or Most Recently Relevant to Health Maintenance Results * (ABNORMAL) Hemoglobin A1c (04/05/2021 11:25 AM EST) Hemoglobin A1C 7.2(H) (4.0-5.6) % [facility] Comment: MONITORING: In known diabetic patients, hemoglobin A1c targets should be discussed with health care provider. DIAGNOSTIC USE: The [place] Diabetes Association (ADA) and the World Health [...] Supplement 1 Testing performed or reported by [facility], a Service of [facility], [address] [place] [id number] Sienna Moncada MD, Engagement Quality Consultant [facility]# [id number] Blood specimen (specimen) Venous blood / Unknown 04/05/2021 11:25 AM EST 04/05/2021 11:26 AM EST us Zhang Grover MD LAB BLOOD ORDERABLES Final Re sult [facility] from Last 3 Months or Most Recently Relevant to Health Maintenance Insurance , [facility] [place] [address] [facility] Dual SNP ([id number]) . [place], [place] [id number] [place] [address] ([id number]) , [facility] [place] [address] Care Teams Supervisor Poultry Processing Relationship Specialty Start Date End Date Hillary Bennett PA-C [address] [place] [address] PCP - General Physician Road Grader 11/01/20
--- OUTSIDE RECORDS SUMMARY | 2024-10-18 15:08 | XMS_ITS | Clinical Summary ---
Author Organization [facility] Address [address] [place] [address] Phone Care Team Providers Care Marketing Engineer Name Role Phone Kev Fragoso NP Primary Care Provider [phone] Allergies No known active allergies Social History Tobacco Use Types Packs/Day Years Used Date Smoking Tobacco: Never Smokeless Tobacco: Never Alcohol Use Standard Drinks/Week Comments Yes 0 (1 standard drink = 0.6 oz pur e alcohol) 4 per week Education Answer Date Recorded Are you interested in more education? Not on jose e 06/06/2022 Are you concerned about learning? Not on file 06/06/2022 No 06/06/2022 No 06/06/2022 Digital Access Answer Date Recorded No 07/06/2022 No 07/06/2022 No 07/06/2022 Reliable internet access at home? Not on file 07/06/2022 Device with a working camera? Not on file Sex and Gender Information Value Date Recorded Sex Assigned at Not on file Legal Sex Male 10:21 AM EST Gender Identity Not on file Sexual Orientation Not on file Plan of Treatment Health Maintenance Due Date Last Done Comments LIPID PANEL 1949 DEPRESSION SCREENING 1961 HEPATITIS C SCREENING 1967 COLOGUARD 1994 COLONOSCOPY 1994 COLORECTAL CANCER SCREENING 1994 FIT TEST 1994 FOBT 1994 SIGMOIDOSCOPY 1994 VIRTUAL COLONOSCOPY 1994 RSV VACCINE (1 - 1-dose 75+ series) 2024 INFLUENZA VACCINE (#1) 2024 0, 02/05/2019, 04/09/2018, Additional history exists COVID-19 VACCINE (2024- season) 2024 05/17/2020 Adult Td,Tdap Booster 09/14/2025 09/15/2015, 013 SMOKING STATUS SCREENING (Once After 26 Yrs) Completed 03/24/2017 PNEUMOCOCCAL VACCINES (50+ years) Completed 02/22/2020, 09/15/2015, 01/28/2012 ZOSTER VACCINES Completed 02/22/2020, 12/15/2019 HEPATITIS A VACCINES Aged Out No long er eligible based on patient's age to complete this topic HIB VACCINES Aged Out No longer eligi ble based on patient's age to complete this topic MENINGOCOCCAL VACCINES (ACWY) Aged Out No longer eligible based on patient's age to complete this topic MENINGOCOCCAL VACCINES (B) Aged Out N o longer eligible based on patient's age to complete this topic Medical Devices Not on file Insurance MEDICARE PART A & B [facility] MEDICARE PART A & B PCC MEDICARE PART A & B [facility] [address] [place] [address] MEDICARE PART A & B [facility] [address] [place] [address] MEDICARE PART A & B [facility] MEDICARE PART A & B Member Subscriber Plan / Payer (Ef fective 2010-Present) Name:Bryan Mtz Member ID:[id number] Relation to Subscriber:Self Name:Bryan Mtz Subscriber ID:[id number] Payer ID:[id number] Group ID:Not on file Type:Medicare Address: [employer] [address] MEDICARE PART A & B MEDICARE PART A & B [facility] MEDICARE PART A & B [facility] Care Teams Marketing Engineer Relationship Specialty Start Date End Date Kev Fragoso NP PCP - General Family Medicine 12/26/16 Additional Source Comments The information contained in this document represents components of the legal health record. It is not the complete legal health record.[facility]
--- OUTSIDE RECORDS SUMMARY | 2024-10-18 15:08 | XMS_ITS | Encounter Summary ---
Author Organization [facility], Address [address] [place] [address] Phone Care Team Providers Care Manager Pharmaceutical Name Role Phone Hillary Bennett PA-C Primary Care Provider [phone] Encounter Details Date Type Department Care Team (Late st Contact Info) Description 08/25/2023 Documentation Only [facility], [address] [place] [address] Stephanie Funes [address] [place] [address] Social History Tobacco Use Types [...] filedocumented in this encounter Care Teams Manager Pharmaceutical Relationship Specialty Start Date End Date Hillary Bnenett PA-C [address] [place] [address] PCP - General Physician Barrel Cap Setter 11/01/20 documented as of this encounter
--- OUTSIDE RECORDS SUMMARY | 2024-10-18 15:08 | XMS_ITS | Encounter Summary ---
Author Organization [facility], Address [address] [place] [address] Phone Care Team Providers Care Field Machinist Name Role Phone Hillary Bennett PA-C Primary Care Provider Encounter Details Date Type Department Care Team (Late st Contact Info) Description 08/25/2023 Documentation Only [facility], [address] [place] [address] Stephanie Funes [address] [place] [address] Social History Tobacco Use Types [...] on filedocumented in this encounter Care Teams Field Machinist Relationship Specialty Start Date End Date Hillary Bennett PA-C [address] [place] [address] PCP - General Physician Wind Instrument Repairer 11/01/20 documented as of this encounter
--- OUTSIDE RECORDS SUMMARY | 2024-10-18 15:08 | XMS_ITS | Encounter Summary ---
Author Organization [facility], Address [address] [place] [address] Phone Care Team Providers Care Baker Test Name Role Phone Hillary Bennett PA-C Primary Care Provider Encounter Details Date Type Department Care Team (Late st Contact Info) Description 04/26/2024 Documentation Only [facility], [address] [place] [address] Stephanie Funes [address] [place] [address] Social History Tobacco Use Types [...] on filedocumented in this encounter Care Teams Baker Test Relationship Specialty Start Date End Date Hillary Bennett PA-C [address] [place] [address] PCP - General Physician Managing Supervisor 11/01/20 documented as of this encounter
--- OUTSIDE RECORDS SUMMARY | 2024-10-18 15:08 | XMS_ITS | Encounter Summary ---
Author Organization [facility], Address [address] [place] [address] Phone Care Team Providers Care Small Business Sales Representative Name Role Phone Hillary Bennett PA-C Primary Care Provider Encounter Details Date Type Department Care Team (Late st Contact Info) Description 04/26/2024 Documentation Only [facility], [address] [place] [address] Stephanie Funes [address] [place] [address] Social History Tobacco Use Types [...] on filedocumented in this encounter Care Teams Small Business Sales Representative Relationship Specialty Start Date End Date Hillary Bennett PA-C [address] [place] [address] PCP - General Physician Process Safety Specialist 11/01/20 documented as of this encounter
--- OUTSIDE RECORDS SUMMARY | 2024-10-18 15:08 | XMS_ITS | Clinical Summary ---
Author Organization [address] [facility] Address [address] [place] [address] Phone Care Team Providers Care Press Feeder Name Role Phone Physician, Pcp Unknown Primary [...] Encounters Date Type Department Care Team Description 08/18/2024 1:45 PM EDT Office Visit Orthopedic Surgery - [address] [phone] Patrick Lord, DPM Dermatophytosis of nail (Primary Dx); Corns and callosities; Type II diabetes mellitus with peripheral circulatory disorder (CMS/HCC V24, CMS/HCC V28); Metatarsalgia of both feet; Diabetic mononeuropathy simplex (CMS/HCC V24, CMS/HCC V28); Primary osteoarthritis of both feet from Last 3 Months Medical History Medical History Date Comments Constipation DX:Constipation History of colitis DX:History of colitis Dysphagia DX:Dysphagia Esophageal reflux DX:Esophageal reflux Diabetes mellitus type 2, co ntrolled, with complications (CMS/HCC V24, CMS/HCC V28) DX:Diabetes mellitus type 2, controlled, with complications ([facility]) Social History Tobacco Use Types Packs/Day Years [...] 58 04/22/2024 6:01 PM EDT Temperature 36.4 C (97.5 F) 04/22/2024 6:01 PM EDT Respiratory Rate 18 04/22/2024 6:01 PM EDT Oxygen Saturation 97% 04/22/2024 6:01 PM EDT Inhaled Oxygen Concentration - - Weight 109 kg (240 lb) 04/22/2024 11:12 AM EDT Height 175.3 cm (5' 9 ) 04/22/2024 11:12 AM EDT Body Mass Index 35.44 04/22/2024 11:12 AM EDT Plan of Treatment Upcoming Encounters Date Type Department Care Team (Late st Contact Info) Description 11/18/2024 1:45 PM EDT Office Visit Orthopedic Surgery - [place] [address] [address] Patrick Lord, DPM [address] [phone] Health Maintenance Due Date Last Done Comments Diabetes: Annual Foot Exam 1959 Diabetes: Annual Retina Eye Exam 1959 Falls Risk Assessment 01/19/2022 Hepatitis C Screening 01/19/2022 Social Influencers of Health Screening 01/19/2022 Depression Screening 02/11/2024 RSV Immunization Adult Patients (1 - 1-dose 75+ series) 2024 Diabetes: Annual Urine Albumin-Creatinine Ratio (uACR) 04/22/2024 07/11/2022, 12/15/2019, 11/18/2018, Additional history exists Diabetes: Blood Sugar Control Test (HGBA1C) 04/22/2024 11/06/2022, 04/05/2021 COVID-19 Vaccine ( season) 2024 04/29/2023, 07/11/2022, 06/14/2020, Additional history exists Influenza Vaccine (#1) 2024 , 04/29/2023, 12/09/2022, Additional history exists Diabetes: Annual GFR (Glomerular Filtration Rate) 04/22/2025 [...] Hepatitis B Vaccines Completed 11/14/2022, 07/11/2022, 06/05/2018 HIB Vaccines Aged Out No longer eligi [...] Procedure Name Priority Date/Time Associated Diagnosis Comments COMPREHENSIVE METABOLIC PANEL STAT 04/22/2024 11:18 AM EDT HM COLONOSCOPY Routine 05/30/2022 from Last 3 Months or Most Recently Relevant to Health Maintenance Results * (ABNORMAL) Comprehensive metabolic panel (04/22/2024 11:18 AM EDT) Sodium 138 133 - 145 mmol/L LAB CHEMISTRY METHOD 04/22/2024 12:[address] [facility] Potassium 4.3 3.5 - 5.5 mmol/L LAB CHEMISTRY METHOD 04/22/2024 12:[address] [facility] Chloride 103 96 - 110 mmol/L LAB CHEMISTRY METHOD 04/22/2024 12:[address] [facility] CO2 28 21 - 32 mmol/L LAB CHEMISTRY METHOD 04/22/2024 12:[address] [facility] Anion Gap 7 3 - 11 LAB CHEMISTRY METHOD 04/22/2024 12:[address] [facility] Glucose 106(H) 70 - 100 mg/dL LAB CHEMISTRY METHOD 04/22/2024 12:[address] [facility] BUN 9 5 - 25 mg/dL LAB CHEMISTRY METHOD 04/22/2024 12:[address] [facility] Creatinine 1.01 0.70 - 1.30 mg/dL LAB CHEMISTRY METHOD 04/22/2024 12:[address] [facility] eGFR 78 >=60 mL/min/1. 73m2 LAB CHEMISTRY METHOD 04/22/2024 12:[address] [facility] Comment:Calculation based on the Chronic Kidney Disease Epidemiology Collaboration (CKD-EPI) equation refit without adjustment for race. BUN/Creatinine Ratio 8.9 LAB CHEMISTRY METHOD 04/22/2024 12:[address] [facility] Calcium 9.3 8.5 - 10.5 mg/dL LAB CHEMISTRY METHOD 04/22/2024 12:[address] [facility] AST (SGOT) 18 10 - 42 unit/L LAB CHEMISTRY METHOD 04/22/2024 12:[address] [facility] ALT (SGPT) 30 10 - 60 unit/L LAB CHEMISTRY METHOD 04/22/2024 12:[address] [facility] Alkaline Phosphatase 73 42 - 121 unit/L LAB CHEMISTRY METHOD 04/22/2024 12:[address] [facility] Total Protein 7.7 6.0 - 8.0 g/dL LAB CHEMISTRY METHOD 04/22/2024 12:[address] [facility] Albumin 3.8 3.2 - 5.0 g/dL LAB CHEMISTRY METHOD 04/22/2024 12:[address] [facility] Total Bilirubin 0.4 0.0 - 1.4 mg/dL LAB CHEMISTRY METHOD 04/22/2024 12:[address] [facility] Blood Venous blood specimen / Unknown Venipuncture / Unknown 04/22/2024 11:18 AM EDT 04/22/2024 12:11 PM EDT Nicko Pérez MD LAB BLOOD ORDERABLES Anusha l Result [facility] [address] [place] [address], * Colonoscopy (05/30/2022) Colonoscopy No Interpretation , Abstracted Anatomical Region Laterality Modality Other Historical Provider HEALTH MAINTENANCE Final Result from Last 3 Months or Most Recently Relevant to Health Maintenance Insurance MEDICAID - [place] [facility] Member Subscriber Plan / Payer ( fective 2019-Present) Name:BRYAN MTZ Relation to Subscriber:Self Name:Nohemy Mtzan Payer ID:[id number] Group ID:[id number] Type:Not on file Address: [address] [place] [address] Care Teams Press Feeder Relationship Specialty Start Date End Date Physician, Pcp Unknown PCP - General 04/22/24
--- OUTSIDE RECORDS SUMMARY | 2024-10-18 15:08 | XMS_ITS | Encounter Summary ---
Author Organization [facility], Address [address] [place] [address] Phone Care Team Providers Care Marketing Manager Health Communications Name Role Phone Hillary Bennett PA-C Primary Care Provider Encounter Details Date Type Department Care Team (Late st Contact Info) Description 04/26/2024 Documentation Only [facility], [address] [place] [address] Stephanie Funes [address] [place] [address] Social History Tobacco Use Types [...] on filedocumented in this encounter Care Teams Marketing Manager Health Communications Relationship Specialty Start Date End Date Hillary Bennett PA-C [address] [place] [address] PCP - General Physician Card Processing Clerk 11/01/20 documented as of this encounter
--- OUTSIDE RECORDS SUMMARY | 2024-10-18 15:08 | XMS_ITS | Encounter Summary ---
Author Organization [facility] Address [address] [place] [address] Phone Care Team Providers Care Mechanical Systems Design Engineer Name Role Phone Hillary Bennett PA-C Primary Care Provider Encounter Details Date Type Department Care Team (Late st Contact Info) Description 06/07/2021 Documentation Only [facility], [address] [place] [address] Chemo Odell MD [address] [phone] Social History Tobacco Use Types Packs/Day Years [...] on filedocumented in this encounter Care Teams Mechanical Systems Design Engineer Relationship Specialty Start Date End Date Hillary Bennett PA-C [address] [place] [address] PCP - General Physician Ccie 11/01/20 documented as of this encounter
--- OUTSIDE RECORDS SUMMARY | 2024-10-18 15:08 | XMS_ITS | Encounter Summary ---
Author Organization [facility], Address [address] [place] [address] Phone Care Team Providers Care Wardrobe Image Consultant Name Role Phone Hillary Bennett PA-C Primary Care Provider Encounter Details Date Type Department Care Team (Late st Contact Info) Description 08/25/2023 Documentation Only [facility], [address] [place] [address] Stephanie Funes [address] [place] [address] Social History Tobacco Use Types [...] on filedocumented in this encounter Care Teams Wardrobe Image Consultant Relationship Specialty Start Date End Date Hillary Bennett PA-C [address] [place] [address] PCP - General Physician White Sugar Pan Tank Operator 11/01/20 documented as of this encounter
--- OUTSIDE RECORDS SUMMARY | 2024-10-18 15:08 | XMS_ITS | Encounter Summary ---
Author Organization [facility], Address [address] [place] [address] Phone Care Team Providers Care Management And Budget Analyst Name Role Phone Hillary Bennett PA-C Primary Care Provider Encounter Details Date Type Department Care Team (Late st Contact Info) Description 08/25/2023 Documentation Only [facility], [address] [place] [address] Stephanie Funes [address] [place] [address] Social History Tobacco Use Types [...] on filedocumented in this encounter Care Teams Management And Budget Analyst Relationship Specialty Start Date End Date Hillary Bennett PA-C [address] [place] [address] PCP - General Physician Skiver Welt End 11/01/20 documented as of this encounter
--- OUTSIDE RECORDS SUMMARY | 2024-10-18 15:08 | XMS_ITS | Encounter Summary ---
Author Organization [facility], Address [address] [place] [address] Phone Care Team Providers Care Digital Media Designer Name Role Phone Hillary Bennett PA-C Primary Care Provider Encounter Details Date Type Department Care Team (Late st Contact Info) Description 04/26/2024 Documentation Only [facility], [address] [place] [address] Stephanie Funes [address] [place] [address] Social History Tobacco Use Types [...] on filedocumented in this encounter Care Teams Digital Media Designer Relationship Specialty Start Date End Date Hillary Bennett PA-C [address] [place] [address] PCP - General Physician Improvement Advisor 11/01/20 documented as of this encounter
--- OUTSIDE RECORDS SUMMARY | 2024-10-18 15:08 | XMS_ITS | Encounter Summary ---
Author Organization [facility], Address [address] [place] [address] Phone Care Team Providers Care Trial Court Judge Name Role Phone Hillary Bennett PA-C Primary Care Provider [phone] Encounter Details Date Type Department Care Team (Late st Contact Info) Description 04/26/2024 Documentation Only [facility], [address] [place] [address] Stephanie Funes [address] [place] [address] Social History Tobacco Use Types [...] on filedocumented in this encounter Care Teams Trial Court Judge Relationship Specialty Start Date End Date Hillary Bennett PA-C [address] [place] [address] PCP - General Physician Telecommunications Cable Jointer 11/01/20 documented as of this encounter
== END 2024-10-18 14:25 | disposition home or self-care (01) ==
LOC: HO.HUSH 13:00
PROVIDERS: PCP Physician Assistant Medical; Visit Provider Urology
DX: Z12.5 Encounter for screening for malignant neoplasm of prostate (principal); N35.919 Unspecified urethral stricture, male, unspecified site; N40.1 Benign prostatic hyperplasia with lower urinary tract symptoms; R39.12 Poor urinary stream; Z13.9 Encounter for screening, unspecified
CPT/HCPCS: 99213

== ENCOUNTER 2024-12-30 10:05 | Outpatient (AMB) | payer OTHER, SELFPAY ==
--- NOTE | 2024-12-30 11:13 | A.OFFVIS_ITS ---
Intake Visit Reasons: URETHRAL DIALATION Intake Note: Patient is present for Uretheral Dialation Urology Medication:Tamsulosin Antibiotic Allergies: None Blood Thinners: Eliquis Shed Boss Required: Yes Allergies No Known Allergies Allergy (Verified 12/30/24 11:13) Medication List - Last Reconciled 12/30/24 by Silke Sharif MD apixaban (Eliquis) 5 mg PO BID atorvastatin 20 mg PO DAILY blood sugar diagnostic (FreeStyle Lite Strips) As directed cholecalciferol (vitamin D3) 25 mcg PO DAILY clotrimazole-betamethasone 1-0.05 % 1 appl topical BID PRN lancets (FreeStyle Lancets) As directed levothyroxine 50 mcg PO DAILY metoprolol succinate ER 25 mg PO DAILY nitrofurantoin monohyd/m-cryst 100 mg (Macrobid) 100 mg PO Q12H 7 days omeprazole 40 mg PO DAILY pen needle, diabetic (Unifine Pentips) As directed ropinirole 4 mg PO BEDTIME sacubitril-valsartan 24-26 mg (Entresto) 1 tab PO BID sitagliptin phos-metformin 100-1,000 mg ER (Janumet XR) 1 tab PO DAILY tamsulosin 0.4 mg PO DAILY trazodone 100 mg PO BEDTIME HPI Comments Details: 12/30/24--FU-urethral dilation. Bryan is followed for meatal stenosis. Here for urethral dilation. He is complaining of itching around the glans. He continues to straight cath daily at home Urethral dilation performed with Cathy sounds-- starting with a 14 Citizen [place] and sequentially dilated up to a 22 Citizen [place] sound. He is prescribed tamsulosin and finasteride for BPH. Will continue urethral dilations. PSA 10/18/2024-1.01 ng/mL Follow-up in 14 weeks. 10/18/24--FU-urethral dilation. Bryan is followed for meatal stenosis. Here for urethral dilation. He is complaining of itching around the glans. He is complaining of pain with urination. Urethral dilation performed with Cathy sounds-- starting with a 12 Citizen [place] and sequentially dilated up to a 20 Citizen [place] sound. He is prescribed tamsulosin and finasteride for BPH. Will continue urethral dilations. Follow-up in 14 weeks. Sent to the lab for PSA today. 06/15/24---FU-urethral dilation. Bryan is followed for meatal stenosis. Here for urethral dilation. He is complaining of itching around the glans. He is compl aining of pain with urination. Urethral dilation performed starting with a 14 [place] catheter and sequentially dilated up to a 20 [place] sound. He is also on tamsulosin and finasteride for BPH. Will continue urethral dilations. 01/12/24-- FU-urethral dilation. Bryan is followed for meatal stenosis. Here for urethral dilation. He is complaining of itching around the glans. He is complaining of pain with urination. Urethral dilation performed starting with a 14 Citizen [place] catheter and sequentially dilated up to a 20 [place] sound. He is also on tamsulosin and finasteride for BPH. Will continue urethral dilations. 10/23/23-Bryan is followed for meatal stenosis. Here for urethral dilation. He is complaining of itching around the glans. He is complaining of pain with urination. Urethral dilation performed starting with a 10 [place] catheter and sequentially dilated up to a 22 Citizen [place] sound. He is instructed to use a 16 [place] catheter to dilate the meatus Friday. 06/23/23--Bryan is a 72-year-old male who presents today(Certified nauruan interpretor present) to the office for follow up with PSA screening. He has h/o meatal stenosis and is instructed on CIC once a day. He is also on tamsulosin and proscar daily for BPH. He was last seen on 01/22/23 for office urethral dilation. He states he is urinating well. He has not been cath'ing daily. Urethal dilation performed, and the patient tolerated well. Follow up in 4-6 months for repeat office dilation. 04/24/23--Bryan is a 72-year-old male who presents today(Certified nauruan interpretor present) to the office for follow up with PSA screening. He has h/o meatal stenosis and is instructed on CIC once a day. He is also on tamsulosin and proscar daily for BPH. He was last seen on 01/22/23 for office urethral dilation. He states he is urinating well. He is cath'ing once daily. He denies dysuria. UA- 1+ leuks, trace blood. I reviewed PSA - 3/4/24--1.11 ng/mL. Review of Results-- Retroperitoneum US results from 09/03/2022 revealed no nephrolithiasis or hydronephrosis, and enlarged prostate. Office cystoscopy-- 09/04/2022 -- cystoscopy findings bulbous urethra: normal; bladder: no suspicious bladder lesions noted. 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 Stage 3 chronic kidney disease Slow transit constipation Chronic back pain Colitis Urethral meatal stenosis Male erectile disorder Primary insomnia Depression AA (alcohol abuse) Cocaine abuse Type 2 diabetes mellitus Hypothyroidism Morbid obesity Hyperlipemia Phimosis Organic impotence Benign prostatic hyperplasia Surgical History Hx of colonoscopy History of circumcision Family History Father Medical history unknown Mother Medical history unknown Social History Alcohol intake: never Patient Tobacco Use Status: Never used Tobacco Review of Systems Const All systems reviewed & are unremarkable except as noted in HPI and below Reports no additional complaints Eyes Reports no additional complaints ENT Reports no additional complaints Card Reports no additional complaints Resp Reports no additional complaints GI Reports no additional complaints Reports as per HPI Musc Reports no additional complaints Skin/Breast Reports system reviewed and no additional complaints, except as documented Neuro Reports no additional complaints Psych Reports no additional complaints Endo Reports no additional complaints Du/Lymph Reports no additional complaints Aller/Immun Reports no additional complaints Office Procedures Generic Document Section Details: Patient given 1x dose of ciprofloxacin 500mg and pyridium 100mg. Injection of 1 urojet lidocaine 2% into patients urethra for prep to urethral dilation. Urethral dilation of meatal stenosis 14 Citizen [place] to 22 Citizen [place] sequentially Assessment & Plan Assessment & Plan (1) Urethral meatal stenosis: Code(s): N35.919 - Unspecified urethral stricture, male, unspecified site Category: Medical (2) BPH loc w urin obs/LUTS: Code(s): N40.1 - Benign prostatic hyperplasia with lower urinary tract symptoms Category: Medical (3) Weak urinary stream: Code(s): R39.12 - Poor urinary stream Category: Medical Plan PSA 10/18/2024-1.01 ng/mL Follow-up in 14 weeks--Urethral dilation Orders: Orders Urethral Dilation Today N35.919 - Unspecified urethral stricture, male, unspecified site Medications: New clotrimazole-betamethasone 1-0.05 % 1 appl topical BID PRN 45 grams 1RF pruitis of penile glans Patient Instructions: The patient had an opportunity to ask questions regarding treatment plan. The patient expressed understanding and agreement with the above treatment plan. The patient is aware they should contact our office by phone for worsening of their current condition or the appearance of new symptoms. Compliance is encouraged with any medications and followup testing that is ordered. It is a privilege to be allowed the opportunity to participate in the urologic care of your patient. If you have any questions or concerns regarding treatment for the above conditions please do not hesitate to contact me. The office telephone contact is [phone]. This note is constructed in part using voice recognition software. While every effort has been made to ensure accuracy commercial real estate lender errors may have been included. Yours sincerely, Silke Sharif MD Coding Level of Care Code Est Pt Level 3 (01325) Diagnoses Urethral meatal stenosis N35.919 BPH loc w urin obs/LUTS N40.1 Weak urinary stream R39.12
--- OUTSIDE RECORDS SUMMARY | 2024-12-30 14:46 | XMS_ITS | Clinical Summary ---
Author Organization [facility], Address [address] [place] [address] [place] [address] Phone Care Team Providers Care Janitor Name Role Phone Hillary Bennett PA-C Primary Care Provider [phone] Allergies Active Allergy Reactions Criticality Noted Date [...] AM EST) Hemoglobin A1C 7.2(H) (4.0-5.6) % [facility] Comment: MONITORING: In known diabetic patients, hemoglobin A1c targets should be discussed with health care provider. DIAGNOSTIC USE: The [place] Diabetes Association (ADA) and the World Health [...] Supplement 1 Testing performed or reported by [facility], a Service of [facility], [address] [place] [id number] Sienna Moncada MD, Head Bucker [facility]# [id number] Blood specimen (specimen) Venous blood / Unknown 04/05/2021 11:25 AM EST 04/05/2021 11:26 AM EST us Zhang Grover MD LAB BLOOD ORDERABLES Final Re sult [facility] from Last 3 Months or Most Recently Relevant to Health Maintenance Insurance , [facility] [place] [address] [facility] Dual SNP ([id number]) . [place], [place] [id number] [place] [address] ([id number]) , [facility] [place] [address] Care Teams Janitor Relationship Specialty Start Date End Date Hillary Bennett PA-C [address] [place] [address] PCP - General Physician Shroudman 11/01/20
--- OUTSIDE RECORDS SUMMARY | 2024-12-30 14:47 | XMS_ITS | Encounter Summary ---
Author Organization [facility], Address [address] [place] [address] Phone Care Team Providers Care Ordnance Artificer Helper Name Role Phone Hillary Bennett PA-C Primary Care Provider Encounter Details Date Type Department Care Team (Late st Contact Info) Description 04/26/2024 Documentation Only [facility], [address] [place] [address] Stephanie Funes [address] [place] [address] Social History Tobacco Use Types [...] on filedocumented in this encounter Care Teams Ordnance Artificer Helper Relationship Specialty Start Date End Date Hillary Bennett PA-C [address] [place] [address] PCP - General Physician Head Greenskeeper 11/01/20 documented as of this encounter
--- OUTSIDE RECORDS SUMMARY | 2024-12-30 14:47 | XMS_ITS | Encounter Summary ---
Author Organization [facility], Address [address] [place] [address] Phone Care Team Providers Care Cisco Certified Network Professional Name Role Phone Hillary Bennett PA-C Primary Care Provider Encounter Details Date Type Department Care Team (Late st Contact Info) Description 04/26/2024 Documentation Only [facility], [address] [place] [address] Stephanie Fnues [address] [place] [address] Social History Tobacco Use Types [...] on filedocumented in this encounter Care Teams Cisco Certified Network Professional Relationship Specialty Start Date End Date Hillary Bennett PA-C [address] [place] [address] PCP - General Physician Cardio Clinician 11/01/20 documented as of this encounter
--- OUTSIDE RECORDS SUMMARY | 2024-12-30 14:47 | XMS_ITS | Encounter Summary ---
Author Organization [facility], Address [address] [place] [address] Phone Care Team Providers Care Computer Numerical Control Machinist Name Role Phone Hillary Bennett PA-C Primary Care Provider Encounter Details Date Type Department Care Team (Late st Contact Info) Description 04/26/2024 Documentation Only [facility], [address] [place] [address] Stephanie Funes [address] [place] [address] Social History Tobacco Use Types [...] on filedocumented in this encounter Care Teams Computer Numerical Control Machinist Relationship Specialty Start Date End Date Hillary Bennett PA-C [address] [place] [address] PCP - General Physician Chain Forming Machine Operator 11/01/20 documented as of this encounter
--- OUTSIDE RECORDS SUMMARY | 2024-12-30 14:47 | XMS_ITS | Encounter Summary ---
Author Organization [facility], Address [address] [place] [address] Phone Care Team Providers Care Hr Payroll Coordinator Name Role Phone Hillary Bennett PA-C Primary Care Provider Encounter Details Date Type Department Care Team (Late st Contact Info) Description 04/26/2024 Documentation Only [facility], [address] [place] [address] Stephanie Funes [address] [place] [address] Social History Tobacco Use Types [...] on filedocumented in this encounter Care Teams Hr Payroll Coordinator Relationship Specialty Start Date End Date Hillary Bennett PA-C [address] [place] [address] PCP - General Physician Construction Engineering Manager 11/01/20 documented as of this encounter
--- OUTSIDE RECORDS SUMMARY | 2024-12-30 14:47 | XMS_ITS | Encounter Summary ---
Author Organization [facility], Address [address] [place] [address] Phone Care Team Providers Care Drier Helper Name Role Phone Hillary Bennett PA-C Primary Care Provider Encounter Details Date Type Department Care Team (Late st Contact Info) Description 04/26/2024 Documentation Only [facility], [address] [place] [address] Stephanie Funes [address] [place] [address] Social History Tobacco Use Types [...] on filedocumented in this encounter Care Teams Drier Helper Relationship Specialty Start Date End Date Hillary Bennett PA-C [address] [place] [address] PCP - General Physician Cycle Analyst 11/01/20 documented as of this encounter
--- OUTSIDE RECORDS SUMMARY | 2024-12-30 14:48 | XMS_ITS | Encounter Summary ---
Author Organization [facility] Address [address] [place] [address] Phone Care Team Providers Care Yarder Name Role Phone Hillary Bennett PA-C Primary Care Provider [phone] Encounter Details Date Type Department Care Team (Late st Contact Info) Description 08/25/2023 Documentation Only [facility], [address] [place] [address] Stephanie Funes [address] [place] [address] Social History Tobacco Use Types [...] on file documented as of this encounter Functional Status documented as of this encounter Plan of Treatment Not on file documented as of this encounter Visit Diagnoses Not on filedocumented in this encounter Care Teams Yarder Relationship Specialty Start Date End Date Hillary Bennett PA-C [address] [place] [address] PCP - General Physician Moderate Needs Teacher 11/01/20 documented as of this encounter
--- OUTSIDE RECORDS SUMMARY | 2024-12-30 14:48 | XMS_ITS | Encounter Summary ---
Author Organization [facility] Address [address] [place] [address] Phone Care Team Providers Care Pss Delivery Professional Name Role Phone Hillary Bennett PA-C Primary Care Provider Encounter Details Date Type Department Care Team (Late st Contact Info) Description 08/25/2023 Documentation Only [facility], [address] [place] [address] Stephanie Funes [address] [place] [address] Social History Tobacco Use [...] on filedocumented in this encounter Care Teams Pss Delivery Professional Relationship Specialty Start Date End Date Hillary Bennett PA-C [address] [place] [address] PCP - General Physician Data Processing Systems Consultant 11/01/20 documented as of this encounter
--- OUTSIDE RECORDS SUMMARY | 2024-12-30 14:48 | XMS_ITS | Data Portability ---
Author Organization [facility] [employer] [facility] Address [address] [place] [address] Care Team Providers Care Vacuum Drier Tender Name Role Phone HIM CCA OTHER Assessment Encounter Date Assessment Date Assessment LastModified by Organization Details LastModified Time 11/12/2022 11/12/2022 I have reviewed and agree with the assessment and plan as documented by the application development director. I provided real-time medical direction for this [...] findings on EKG; activate EMS and refer [facility] [email or web address] Not available 06/02/2024 21:09:11 Plan of Treatment Reminders Order Date Submit Date Provider Last Modified By Organization Details Last Modified Time Details Appointments None recorded. Lab BMP, serum or plasma 2023 024 [facility], [address] [place] [address], [id number] 4 18:50:33 urinalysis, dipstick 2023 024 [facility], [address] [place] [address], [id number] 4 19:07:57 rapid strep group A, throat 2023 024 [facility], [address] [place] [address], [id number] 4 23:02:20 Referral None recorded. Procedures None recorded. Surgeries None recorded. Imaging electrocard iogram [address], [id number] 5 18:22:23 Medication Orders furosemide 10 mg/mL injection solution 2023 024 [email or web address] Not available 4 18:53:17 Augmentin 875 mg-125 mg tablet 2023 024 [email or web address] Not available 4 18:54:01 Lasix 20 mg tablet 2023 024 [facility] #[id number], [address] [place] [address], [id number], 4 19:01:55 Augmentin 875 mg-125 mg tablet 2023 024 [facility] #[id number], [address] [place] [address], [id number], 4 19:01:54 Lactobac 47-B.animal ,bifid-S.th ermo 10 billion cell-FOS 100 mg capsule 2023 024 [facility] #[id number], [address] [place], [place], [id number], 4 19:01:53 Patient TargetsNo targets recorded. Patient InstructionsNo instructions recorded. Reason for Referral None Reported. Results Created Date Observation Date Name Description Value Unit Range Abnormal Flag Note LastModifiedBy Organization Detail LastModifiedTime 03/15/19 24 03/15/2023 rapid strep group A, throa t Strep negati ve Not Available Main - [facility] [address] [place] [address], [id number] 03/15/2023 23:02:09 03/15/19 24 03/15/2023 urina lysis , dipst ick Leukocytes negati ve Not Available Main - [facility] [address] [place] [address], [id number] 03/15/2023 19:06:50 03/15/19 24 03/15/2023 urina lysis , dipst ick Nitrite negati ve Not Available Main - [facility] [address] [place] [address], [id number] 03/15/2023 19:06:50 03/15/19 24 03/15/2023 urina lysis , dipst ick Urobilinogen negati ve Not Available Main - [facility] ed [address] [place] [address], [address] 03/15/2023 19:06:50 03/15/19 24 03/15/2023 urina lysis , dipst ick Protein Positi ve Not Available Main - [facility] [address] [place] [address], [phone] 03/15/2023 19:06:50 03/15/19 24 03/15/2023 urina lysis , dipst ick pH 6.0 Not Available Main - [facility] [address] [place] [address], [address] 03/15/2023 19:06:50 03/15/19 24 03/15/2023 urina lysis , dipst ick Blood positi ve Not Available Main - [facility] [address] [place] [address], [address] 03/15/2023 19:06:50 03/15/19 24 03/15/2023 urina lysis , dipst ick Specific [place] 1.010 Not Available Main - [facility] [address] [place] [address], [id number] 03/15/2023 19:06:50 03/15/19 24 03/15/2023 urina lysis , dipst ick Ketone Negati ve Not Available Main - [facility] [address] [place] [address], [address] 03/15/2023 19:06:50 03/15/19 24 03/15/2023 urina lysis , dipst ick Bilirubin Negati ve Not Available Main - [facility] [address] [place] [address], [address] [place] [address] 03/15/2023 19:06:50 03/15/19 24 03/15/2023 urina lysis , dipst ick Glucose Negati ve Not Available Main - [facility] [address] [place] [address], [address] [place] [address] 03/15/2023 19:06:50 03/15/19 24 03/15/2023 urina lysis , dipst ick Appearance Clear Not Available Main - [facility] [address] [place] [address], [address] [place] [address] 03/15/2023 19:06:50 03/15/19 24 03/15/2023 urina lysis , dipst ick Color yellow Not Available Main - Ins [address], [address] [place] [address] 03/15/2023 19:06:50 03/15/19 24 03/15/2023 BMP, serum or plasm a BUN 14 Not Available Main - [facility] [address], [address] [place] [address] 03/15/2023 18:32:34 03/15/19 24 03/15/2023 BMP, serum or plasm a Ca 1.04 Not Available Main - [facility] [address], [address] [place] [address] 03/15/2023 18:32:34 03/15/19 24 03/15/2023 BMP, serum or plasm a CI- 101 Not Available Main - [facility] [address], [address] [place] [address] 03/15/2023 18:32:34 03/15/19 24 03/15/2023 BMP, serum or plasm a CRE 1.14 Not Available Main - [facility] [address], [address] [place] [address] 03/15/2023 18:32:34 03/15/19 24 03/15/2023 BMP, serum or plasm a GLU 156 Not Available Main - [facility] [address], [address] [place] [address] 03/15/2023 18:32:34 03/15/19 24 03/15/2023 BMP, serum or plasm a K+ 4.9 Not Available Main - [facility] [address], [address] 03/15/2023 18:32:34 03/15/19 24 03/15/2023 BMP, serum or plasm a Na+ 136 Not Available Main - Ins [address], [address] 03/15/2023 18:32:34 03/15/19 24 03/15/2023 BMP, serum or plasm a tCO2 29 Not Available Main - [facility] [address], [address] 03/15/2023 18:32:34 06/03/19 25 06/02/2024 elect rocar diogr am No observ ation record ed. [facility] Main - [facility], [address] 06/02/2024 21:31:14 Result Notes None recorded. Medical Equipment None Reported. [...] Available No t Available Vitals Date Recorded Respiratory rate Body temperature Heart rate Oxygen saturation Systolic And Diastolic Provider Name and Address Organization Details Last Updated DateTime 4 16 /min 100 [degF] 88 /min 95 % 120/71 mm[Hg] Not Available [facility] - production 4 18:23:42 Date Recorded Body temperature Body height Oxygen saturation Respiratory rate Heart rate Body weight Systolic And Diastolic Provider Name and Address Organization Details Last Updated DateTime 4 98.4 [degF] 157.48 cm 94 % 14 /min 78 /min 87946.4 g 110/72 mm[Hg] Not Available [facility] - production 4 18:59:20 Date Recorded Respiratory rate Heart rate Body temperature Oxygen saturation Systolic And Diastolic Provider Name and Address Organization Details Last Updated DateTime 5 16 /min 68 /min 98.6 [degF] 96 % 176/76 mm[Hg] Not Available [facility] - production 5 21:08:31 Date Recorded Heart rate Oxygen saturation Respiratory rate Body temperature Systolic And Diastolic Provider Name and Address Organization Details Last Updated DateTime 3 86 /min 96 % 16 /min 97.1 [degF] 126/63 mm[Hg] Not Available [facility] - production 3 17:59:48 Social History None recorded. Functional Status None recorded. Mental Status None recorded. Family History Nothing Reported. Medical History No medical history recorded. Past Encounters Encounter ID Performer Location Encounter Start Date Encounter Closed Date Diagnosis/Indication Diagnosis SNOMED-CT Code Diagnosis ICD10 Code Diagnosis IMO Codes Diagnosis Note [id number] Charisse Beltrán MD Main - [address] [address] 11/12/2022 17:59:46 11/12/2022 23:44:04 Left side sciatica 7965261139 94408 M54.32 [id number] HARPER WATT MD [facility] - [address] [address] 03/15/2023 18:23:37 03/16/2023 13:34:49 Dyspnea on exertion 41165468 R06.09 Evaluation in the field was performed by my application development director colleague, as noted above, I provided real-time [...] ( pt received the first dose by application development director ) . Side effects of the Augmentin [...] dizziness, fever, chills or any other concerns. [id number] Jatin Machado MD Main - [facility] [address] [place] [phone] 03/25/2023 18:59:09 03/25/2023 21:56:49 Alteration in heart rate 655837339 R00.9 Patient was recently discharged from the [...] and family that we cannot rule out VA in the home, even though there is a low suspicion. Patient and family declined ED. Educated on how to check a pulse. Plan to monitor heart rate at home and follow up with PCP. [id number] Robyn Osborne MD Main - [facility] [address] [place] [phone] 06/02/2024 21:08:21 06/03/2024 14:57:48 Chest discomfort 237803487 R07.89 [id number] Health Concerns Section Related Observation LastModified by Organization Detai ls LastModified Time None Recorded Concern Status LastModified by Organization Details LastModified Time None Recorded Advance Directives Directive None Recorded Payers Insurance Date Sequence Insurance Name Policy Number Policy Vogel Covered Member ID Vogel Member ID Guarantor Name 06/03/[address] [facility] - DOS ON OR AFTER 2022 - DUAL ELIGIBLE - PENITENTIARY OPTIONS AND ONE CARE (MEDICARE REPLACEMENT/AD VANTAGE - HMO) Bryan Mtz [id number] Bryan Mtz Notes Date Note Type Note [...] ................... ................... ................... ................... ................... ................... ........ Research Greenhouse Supervisor Note From Praveen Bañuelos: Pt reports pain [...] ................... ........ Disposition: Fulfilled Charisse Beltrán MD [address] [place] [address],[address], [place], [address], [employer] 11/12/2022 19:21:43 03/15/2023 text/html ROS as noted in the HPI CRC Nurse Triage Notes (Leela Laneg): Chief Complaints: Shortness of Breath/Dyspnea, Cough PMH: [...] ................... ................... ................... ................... ................... ................... ........ Research Greenhouse Supervisor Note From Asif Hdz: Pt reports that he has been feeling unwell for the past 2 weeks states on Friday was seen at a [facility] care had a X-ray done and was told that he has guild in his lungs states that he was sent home with ABX and a MDI states that since then he has been feeling the same states that he still has been having a cough with SOB mostly when lying down. Denies any fever reports that he hasn t been eating or drinking well on scene vs taken LS diminished. Strep test done, [facility] was called POC UA and BMP done. IV was started pt given 20mg of lasix and augmentin was advised that if symptoms don t improve or get worse to go to ED and cleared. ................... ................... ................... ................... ................... ................... ................... ........ Disposition: Monserrat WATT MD [address] [facility],[address], [place], [address], [employer] 03/15/2023 23:13:50 03/25/2023 text/html CRC Nurse Triage [...] ................... ................... ................... ................... ................... ................... ........ Research Greenhouse Supervisor Note From Ash Villalobos: Pt caox3 complains [...] rate now normal with no palpitations noted. [facility] advises pt to be seen for high [...] ................... ................... ................... ................... ........ Disposition: Fulfilled Jatin Machado MD [address] [place] [address],[address], [place], [address] [employer] 03/25/2023 20:13:45 06/02/2024 text/html CRC Nurse Triage Notes (Lakesha Merritt): Reason For Request: dizzy/shaky/abdomin al pain Chief [...] signs of when to seek emergency care. Research Greenhouse Supervisor Organization Information for [employer] Business Legal Name: [employer]. Address: [address] [place] [address] [place] [address], Veterinary Virologist: Gopal CHEN No.: [id number] Research Greenhouse Supervisor POC Test Results from [facility] EKG (20:53:55) EKG test performed. Attachments uploaded as part of this test result can be found under Documents section. ................... ................... ................... ................... ................... ................... ................... ........ Research Greenhouse Supervisor Note From Breezy Vaughan: Dispatched to the [...] of vitals. 12 lead EKG. Results uploaded. C consulted. Pt advised Pt to have a further work up in the ED. Pt agreeable. ED visible from Pts front door, family drove Pt to ED. Red flags discussed. ALL times are approx. ................... ................... ................... ................... ................... ................... ................... ........ [facility] Consulted: Robyn Osborne ................... ................... ................... ................... ................... ................... ................... ........ Disposition: Fulfilled Robyn Osborne MD [address] [facility],[address], [place], [address], [employer] 06/03/2024 10:06:42
--- OUTSIDE RECORDS SUMMARY | 2024-12-30 14:48 | XMS_ITS | Encounter Summary ---
Author Organization [facility] Address [address] [place] [address] Phone Care Team Providers Care Public Works Manager Name Role Phone Hillary Bennett PA-C Primary Care Provider Encounter Details Date Type Department Care Team (Late st Contact Info) Description 08/25/2023 Documentation Only [facility] [place], [address] [place] [address] Stephanie Funes [address] [place] [address] Social History Tobacco Use Types [...] on filedocumented in this encounter Care Teams Public Works Manager Relationship Specialty Start Date End Date Hillary Bennett PA-C [address] [place] [address] PCP - General Physician Dinkey Mechanic 11/01/20 documented as of this encounter
--- OUTSIDE RECORDS SUMMARY | 2024-12-30 14:48 | XMS_ITS | Clinical Summary ---
Author Organization [facility] Address [address] [place] [address] Phone Care Team Providers Care Line Ordering Clinician Name Role Phone Kev Fragoso NP Primary Care Provider [phone] Allergies No known active allergies Social History [...] file Insurance MEDICARE PART A & B [facility] MEDICARE PART A & B PCC MEDICARE PART A & B [facility] [address] [place] [address] MEDICARE PART A & B [facility] [address] [place] [address] MEDICARE PART A & B [facility] MEDICARE PART A & B Member Subscriber Plan / Payer (Ef fective 2010-Present) Name:Bryan Mtz Member ID:[id number] Relation to Subscriber:Self Name:Byran Mtz Subscriber ID:[id number] Payer ID:[id number] Group ID:Not on file Type:Medicare Address: [employer] [address] MEDICARE PART A & B MEDICARE PART A & B [facility] MEDICARE PART A & B [facility] Care Teams Line Ordering Clinician Relationship Specialty Start Date End Date Kev Fragoso NP PCP - General Family Medicine 12/26/16 Additional Source Comments The information contained in this document represents components of the legal health record. It is not the complete legal health record.[facility]
--- OUTSIDE RECORDS SUMMARY | 2024-12-30 14:48 | XMS_ITS | Encounter Summary ---
Author Organization [facility] Address [address] [place] [address] Phone Care Team Providers Care Second Cook And Baker Name Role Phone Hillary Bennett PA-C Primary Care Provider [phone] Encounter Details Date Type Department Care Team (Late st Contact Info) Description 06/07/2021 Documentation Only [facility] [place], [address] [place] [address] Chemo Odell MD [address] [id number] Social History Tobacco Use Types Packs/Day Years [...] on filedocumented in this encounter Care Teams Second Cook And Baker Relationship Specialty Start Date End Date Hillary Bennett PA-C [address] [place] [address] PCP - General Physician Fan Mail Clerk 11/01/20 documented as of this encounter
--- OUTSIDE RECORDS SUMMARY | 2024-12-30 14:48 | XMS_ITS | Encounter Summary ---
Author Organization [facility] Address [address] [place] [address] Phone Care Team Providers Care Plant Control Aide Name Role Phone Hillary Bennett PA-C Primary Care Provider Encounter Details Date Type Department Care Team (Late st Contact Info) Description 08/25/2023 Documentation Only [facility] [place], [address] [place] [address] Stephanie Funes [address] [place] [address] Social History Tobacco Use Types [...] on filedocumented in this encounter Care Teams Plant Control Aide Relationship Specialty Start Date End Date Hillary Bennett PA-C [address] [place] [address] PCP - General Physician Director Zone 11/01/20 documented as of this encounter
== END 2024-12-30 11:56 | disposition home or self-care (01) ==
LOC: HO.HUSH 10:05
PROVIDERS: PCP Physician Assistant Medical; Visit Provider Urology
DX: N35.919 Unspecified urethral stricture, male, unspecified site (principal); N40.1 Benign prostatic hyperplasia with lower urinary tract symptoms; R39.12 Poor urinary stream; Z87.440 Personal history of urinary (tract) infections
CPT/HCPCS: 99213

== ENCOUNTER → 2024-12-30 10:05 | Outpatient (BNVA) | payer OTHER, SELFPAY | PROVIDERS: PCP Physician Assistant Medical; Visit Provider Urology | DX: N40.1 Benign prostatic hyperplasia with lower urinary tract symptoms (principal); N35.919 Unspecified urethral stricture, male, unspecified site; R39.12 Poor urinary stream | CPT/HCPCS: 81003; 99212 ==